=== PATIENT | male | born 1950 | race Caucasian/White ===

== ENCOUNTER → 2016-12-02 | Outpatient (CLI) | payer OTHER ==
--- NOTE | 2016-12-02 15:40 | RAD ---
APPROVED REPORT Test Type: Exercise Stress Nurse/Tech: CIERRA Cortez Test Indications: chest pain Cardiac History: See EMAR Medications: See EMAR Medical History: See EMAR Resting ECG: SR w/BBB Resting Heart Rate: 72 bpm Resting Blood Pressure: 134/72mmHg Pretest Chest Pain: None Nurse/Tech Notes SR per monitor, S1S2, denies chest or SOA, Lungs CTA Consent: The procedure was explained to the patient in lay terms. Informed consent was witnessed. [place] eout was entered into [employer]. History and Stress Test performed by JORGE A Fontaine, MELLO (R) (N) POST EXERCISE Reason for Termination: Reached target heart rate Target HR: 132 Max HR: 156 bpm 84% of Maximum Predicted HR: 156 bpm Exercise duration: 7:02 min:sec, 3 Stage Exercise capacity: 10METs Max Blood Pressure: 160/84mmHg Blood Pressure response to exercise: Normal blood pressure response during stress. Heart Rate response to exercise: Normal response during exercise Chest Pain: No. Arrhythmia: No. ST Change: No. INTERPRETATION Stress EKG Conclusion: Negative for ischemia. Imaging Protocol IMAGE PROTOCOL: Rest Tc-99m/stress Tc-99m 1 day Rest: Stress: Viability: Radiopharm.Tc99m [id number] Sestamibi Dose12.6mCi 33mCi Duration 15min. 10min. Img Date 12/02/2016 12/02/2016 Inj-Img [id number]. 60min. Rest Admin Site:IV - Left AntecubitalAdministrator:SAMY Odell Stress Admin Site: IV - Left AntecubitalAdministrator: JORGE A Fontaine, ARRT (R)(N) STRESS DATA End Diast. Vol.113.0mlAv. Heart Rate85.0bpm End Syst. Vol.39.0mlCO Index BSA0.0L/min Myocardial Nwnu880.0gEject. Rqyswspl96.0% Stress Rates Pk. Fill Rate3.56EDV/secLVtime Pk. Fill 154.13msec Pk. Empty Rate4.05ESV/secLVtime Pk. Volgh373.21msec 08/17 Pk. Fill1.60EDV/sec Stress Scores Regional WT0.00Summed WT1.00 Regional WM0.00Summed WM1.00 The rest and stress images show normal perfusion, normal contraction and thickening. LV Perf. Quant 17 Seg. SSS2.00 17 Seg. SRS2.00 17 Seg. SDS0.00 Stress Defect Extent (% LAD)0.00Rest Defect Extent (% LAD)0.00Rev. Defect Extent (% LAD)0.00 Stress Defect Extent (% LCX) 3.80Rest Defect Extent (% LCX)17.50Rev. Defect Extent (% LCX)0.00 Stress Defect Extent (% RCA)0.00Rest Defect Extent (% RCA)0.00Rev. Defect Extent (% RCA)0.00 Stress Defect Extent (% JULIO)1.10Rest Defect Extent (% JULIO)5.70Rev. Defect Extent (% JULIO)0.00 Other Information Quality:Good Risk Assessment: Low Risk Conclusion 1. No evidence of stress induced EKG changes. 2. Normal myocardial perfusion at stress/rest. 3. Low risk study. EF > 65%
== END | disposition home or self-care (01) ==
LOC: NM 08:26
PROVIDERS: ATTEND Internal Medicine Cardiovascular Disease
DX: R07.9 Chest pain, unspecified (principal); F17.200 Nicotine dependence, unspecified, uncomplicated; Z79.01 Long term (current) use of anticoagulants
CPT/HCPCS: 78452; 93017; 96374; 96376; A9500

== ENCOUNTER 2021-06-13 14:07 | Inpatient (IN) | payer MEDICARE ==
[~2021-06-13] VITALS: Ht 170.2 cm; Wt 73.8 kg
--- NOTE | 2021-06-13 15:16 | PHYS DOC ---
General Adult EDM: Chief Complaint: SHORTNESS OF BREATH HPI: HPI: 70-year-old male past medical history of hypertension, GERD and former tobacco use, presents the ED with complaints of " [facility] come [facility] if my oxygen dropped below 90," reports he was 83 and 87% on room air earlier today. Patient states "I thought I had a cold," 8 days ago when he [facility] at [facility]. Has been experiencing anorexia, diarrhea, fever or chills, nasal congestion and sore throat. Was not vaccinated for Covid. No prior history of Covid infection. Does not feel short of breath. Review of Systems: Review of Systems: Constitutional: Denies lethargy or confusion Eyes: Denies change in visual acuity. [] HENT: Denies rhinorrhea or nasal flarring Respiratory: Denies cough or hemoptysis Cardiovascular: Denies chest pain or edema. [] GI: Denies abdominal pain, nausea, vomiting, bloody stools : Denies dysuria or incontinence Musculoskeletal: Denies back pain or joint pain or leg swelling Integument: Denies rash or diaphoresis Neurologic: Denies headache, focal weakness or sensory changes. [] Endocrine: Denies polyuria or polydipsia. [] Lymphatic: Denies swollen glands. [] Psychiatric: Denies depression or anxiety. [] Heart Score: C/O Chest Pain: No Risk Factors: Risk Factors: DM, Current or recent (<one month) smoker, HTN, HLP, family history of CAD, obesity. Risk Scores: Score 0 - 3: 2.5% MACE over next 6 weeks - Discharge Home Score 4 - 6: 20.3% MACE over next 6 weeks - Admit for Clinical Observation Score 7 - 10: 72.7% MACE over next 6 weeks - Early Invasive Strategies Current Medications: Current Medications Medications (Trade) Dose Ordered Sig/Andriy Start Time Stop Time Status Last Admin Dose Admin Sodium Chloride 1,000 ml @ 1,000 mls/hr 1X ONCE 06/13/21 15:00 06/13/21 15:59 UNV Allergies: Allergies: Allergies Coded Allergies Type Severity Reaction Last Updated Verified No Known Drug Allergies 06/13/21 No Physical Exam: PE: Constitutional: Well developed, well nourished, no acute distress, non-toxic appearance. HENT: Normocephalic, atraumatic, Eyes: EOMI, conjunctiva normal, no discharge. Neck: Normal range of motion, supple, Cardiovascular: S1/2 present, regular rhythm Lungs & Thorax: Speaking in full sentences, bilateral equal chest rise, no tachypnea or increased work of breathing, 93% on 5 L nasal cannula Abdomen: soft, no tenderness, Skin: Warm, dry, no erythema, no rash. [] Extremities: No tenderness, no cyanosis, no lower extremity edema Neurologic: Alert and oriented X 3, normal motor function, normal sensory function, no focal deficits noted. [] Psychologic: Affect normal, judgement normal, mood normal. [] EKG: EKG: Sinus rhythm 90 bpm, left axis deviation, QTC 472, PVCs present, no ST elevation or ST depression, no active chest pain Radiology/Procedures: Radiology/Procedures: IMAGING REPORT Signed PATIENT: GINO PATEL PACCOUNT: [id number] : 1950 LOCATION: ER AGE: 70 SEX: M EXAM STATUS: REG ER ORD. PHYSICIAN: ROBERT FREEMAN DO REASON: soa, covid+, r/o pe PROCEDURE: CT ANGIOGRAPHY CHEST CTA chest with contrast dated 06/13/2021. No comparison available. CLINICAL INDICATION: Shortness of breath. Covid 19. TECHNIQUE: Contiguous axial imaging of the chest was performed following the intravenous administration of 80 cc Omnipaque 350. Study was performed as dedicated PE protocol with thin cut coronal MIPS 3-D reconstruction. One or more of the following individualized dose reduction techniques were utilized for this examination: 1. Automated exposure control 2. Adjustment of the mA and/or kV according to patient size 3. Use of iterative reconstruction technique. FINDINGS: Contrast bolus is adequate. No evidence of central, lobar or segmental pulmonary embolus. Subsegmental branches are not well evaluated based on technique. Heart size is upper limits of normal. No pericardial effusion. Coronary artery calcifications. Borderline enlarged left paratracheal, right paratracheal and subcarinal lymph nodes measuring up to 8 mm short axis. No apparent axillary or supraclavicular lymphadenopathy. The thyroid gland is unremarkable. Central airways are patent. There is patchy groundglass opacity throughout both lungs. No consolidation or pleural effusion. No pneumothorax. Superimposed mild to moderate emphysema. Images of the upper abdomen are unremarkable. Calcified stones at the gallbladder neck. No significant bony abnormality. Bone window show no acute findings. Multilevel spondylosis. Mild narrowing of the celiac artery at its origin. IMPRESSION: 1. No evidence of central, lobar or segmental pulmonary embolus. 2. Patchy groundglass opacity throughout both lungs, nonspecific. This could be related to Covid 19 pneumonitis. 3. Mild mediastinal lymphadenopathy, nonspecific. 4. Coronary artery calcifications. 5. Cholelithiasis. Electronically signed by: Mark Hull MD (06/13/2021 4:25 PM) [id number] DICTATED and SIGNED BY: MARK HULL MD DATE: 06/13/21 [id number] 0 Course & Med Decision Making: Course & Med Decision Making Pertinent Labs and Imaging studies reviewed. (See chart for details) Concern for COVID-19 infection of 8 days with hypoxia requiring nasal cannula, renal insufficiency (no prior for baseline comparison) and bandemia. CTA of the chest shows no pulmonary embolus. Will admit for further medical management. Patient stable time of admission agrees with this plan. I have spoken with the patient and/or caregivers. I have explained the patient's condition, diagnosis and treatment plan based on the information available to me at this time. I have answered the patient's and/or caregivers questions and answered any concerns. The patient and/or caregivers have as good an understanding of the patient's diagnosis, condition and treatment plan as can be expected at this point. The patient has been stabilized within the capability of the emergency department. The patient will be transported for further care and management or will be moved to an observation or inpatient service. I have communicated with the staff or medical practitioner taking over this patient's care. Odilon Disclaimer: Odilon Disclaimer: This electronic medical record was generated, in whole or in part, using a voice recognition dictation system. Departure Departure Impression: Primary Impression: COVID-19 Additional Impressions: Sepsis Hypoxemia requiring supplemental oxygen Bandemia Renal insufficiency Disposition: ADMITTED INPATIENT Admitting Physician: CLAUDIA (Dr. Ferrara) Condition: STABLE Referrals: SULEIMAN CRENSHAW MD (PCP) ROBERT FREEMAN DO Jun 13, 2021 15:16
[2021-06-13] MEDS ORDERED: IV NORMAL SALINE 1000ML BAG 1,000 ML IV ONE (15:30)
[2021-06-13 15:37] LABS: BASO % 0 % (0-3); EOS % 0 % (0-3); HEMATOCRIT 39.9 % (39.0-53.0); HEMOGLOBIN 13.6 g/dL (13.0-17.5); LYMPH # 0.6 x10^3/uL (1.0-4.8); LYMPH % 4 % (24-48); MEAN CORPUSCULAR HEMOGLOBIN 32 pg (25-35); MEAN CORPUSCULAR HGB CONC 34 g/dL (31-37); MEAN CORPUSCULAR VOLUME 94 fL (79-100); MONO # 0.6 x10^3/uL (0.0-1.1); MONO % 4 % (0-9); NEUT # 13.1 x10^3/uL (1.8-7.7); NEUT % 92 % (31-73); PLATELET COUNT 295 x10^3/uL (140-400); RED BLOOD COUNT 4.22 x10^6/uL (4.30-5.70); RED CELL DISTRIBUTION WIDTH 12.3 % (11.5-14.5); WHITE BLOOD COUNT 14.3 x10^3/uL (4.0-11.0)
[2021-06-13 15:51] LABS: CALCIUM 8.3 mg/dL (8.5-10.1); CREATININE 1.4 mg/dL (0.7-1.3); GFR 50.4; POTASSIUM 3.9 mmol/L (3.5-5.1)
[2021-06-13 15:58] LABS: ALBUMIN 3.2 g/dL (3.4-5.0); DIRECT BILIRUBIN 0.2 mg/dL (0.0-0.2); TOTAL BILIRUBIN 0.4 mg/dL (0.2-1.0); TOTAL PROTEIN 6.9 g/dL (6.4-8.2)
[2021-06-13 15:59] LABS: % BANDS 10 % (0-9); % LYMPHS 4 % (24-48); % MONOS 3 % (0-10); % SEGS 83 % (35-66); PLT ESTIMATE ADEQUATE (ADEQUATE); POIKILOCYTOSIS SLIGHT
[2021-06-13 16:00] LABS: OVALOCYTES FEW
[2021-06-13] MEDS ORDERED: IOHEXOL 350 MG/ML 100 ML VIAL. IV ONE (16:00)
[2021-06-13] MEDS ORDERED: CONTRAST GIVEN. MC PRN (16:00)
--- NOTE | 2021-06-13 16:27 | RAD ---
CTA chest with contrast dated 06/13/2021. No comparison available. CLINICAL INDICATION: Shortness of breath. Covid 19. TECHNIQUE: Contiguous axial imaging of the chest was performed following the intravenous administration of 80 cc Omnipaque 350. Study was performed as dedicated PE protocol with thin cut coronal MIPS 3-D reconstru ction. One or more of the following individualized dose reduction techniques were utilized for this examinat ion: 1. Automated exposure control 2. Adjustment of the mA and/or kV according to patient size 3. Use of iterative reconstruction technique. FINDINGS: Contrast bolus is adequate. No evidence of central, lobar or segmental pulmonary embolus. Subsegmenta l branches are not well evaluated based on technique. Heart size is upper limits of normal. No pericardial effusion. Coronary artery calcifications. Border line enlarged left paratracheal, right paratracheal and subcarinal lymph nodes measuring up to 8 mm s hort axis. No apparent axillary or supraclavicular lymphadenopathy. The thyroid gland is unremarkable . Central airways are patent. There is patchy groundglass opacity throughout both lungs. No consolidati on or pleural effusion. No pneumothorax. Superimposed mild to moderate emphysema. Images of the upper abdomen are unremarkable. Calcified stones at the gallbladder neck. No significan t bony abnormality. Bone window show no acute findings. Multilevel spondylosis. Mild narrowing of the celiac artery at it s origin. IMPRESSION: 1. No evidence of central, lobar or segmental pulmonary embolus. 2. Patchy groundglass opacity throughout both lungs, nonspecific. This could be related to Covid 19 p neumonitis. 3. Mild mediastinal lymphadenopathy, nonspecific. 4. Coronary artery calcifications. 5. Cholelithiasis. Electronically signed by: Mark Hull MD (06/13/2021 4:25 PM) [id number]
[2021-06-13] MEDS ORDERED: MAGNESIUM HYDROXIDE 2,400 MG/30 ML ORAL.SUSP. PO PRN (17:00)
[2021-06-13] MEDS ORDERED: MAG HYDROX/ALUMINUM HYD/SIMETH 30 ML ORAL.SUSP PO PRN (17:00)
[2021-06-13] MEDS ORDERED: BENZOCAINE/MENTHOL LOZENGE. PO PRN (17:00)
[2021-06-13] MEDS ORDERED: HYDROcodone/APAP 5/325MG 1 TAB TABLET PO PRN (17:00)
[2021-06-13] MEDS ORDERED: ONDANSETRON PF 4 MG/2 ML VIAL. IVP PRN (17:00)
[2021-06-13] MEDS ORDERED: ZOLPIDEM 5 MG TABLET. PO PRN (17:00)
[2021-06-13] MEDS ORDERED: LOPERAMIDE 2 MG CAPSULE PO PRN (17:00)
[2021-06-13] MEDS ORDERED: CALCIUM CARBONATE 500 MG TAB.CHEW PO PRN (17:00)
[2021-06-13] MEDS ORDERED: ACETAMINOPHEN 325 MG TABLET. PO PRN (17:00)
[2021-06-13 17:11] LABS: BASE EXCESS ABG 2 mmol/L (-3-3); HCO3 ABG 24 mmol/L (21-28); PCO2 ABG 31 mmHg (35-46); PO2 ABG 70 mmHg (65-108); SAT O2 ABG 95 % (92-99)
[2021-06-13 17:12] LABS: FIO2 ABG 36/4L
[2021-06-13] MEDS ORDERED: hydrALAZINE 20 MG/ML VIAL. IVP PRN (17:30)
[2021-06-13] MEDS ORDERED: ALBUTEROL SULFATE 8GM INHALER. INH PRN (17:30)
[2021-06-13 17:36] LABS: INFLUENZA A PATIENT NEGATIVE (NEGATIVE); INFLUENZA B PATIENT NEGATIVE (NEGATIVE)
[2021-06-13] MEDS ORDERED: cefTRIAXone IV Push 1 GM VIAL. IVP SCH (18:00)
[2021-06-13] MEDS ORDERED: REMDESIVIR LOAD in IV NORMAL SALINE 250ML TV IV ONE (19:00)
[2021-06-13] MEDS ORDERED: DEXAMETHASONE SOD PHOS 4 MG/ML VIAL IVP ONE (20:00)
--- NOTE | 2021-06-13 20:03 | PDOC1 ---
History and Physical Date of Admission Date of Admission DATE: 06/13/21 TIME: 19:51 Identification/Chief Complaint Chief Complaint Shortness of breath Source Source: Patient History of Present Illness History of Present Illness Patient is a 64-year-old man with past medical history HTN, HLD, GERD, who presents to the ER with complaints of shortness of breath since yesterday. He reports "cold-like symptoms "over the past 8 days. He went to an urgent care yesterday and was diagnosed with COVID-19. He was sent home with a a home oxygen monitor and was told to come back to the ED if his O2 saturation dropped below 90. At home his oxygen saturations were reading in the 80s, so he came to the ER for further evaluation. Labs on admission showed WBC 14.3, sodium 129, BUN 31, creatinine 1.5, CBG 164, AST 45, ALT 47. CTA chest showed no evidence of pulmonary embolus, but patchy groundglass opacities throughout both lungs consistent with COVID-19 pneumonitis, mild mediastinal lymphadenopathy, and coronary artery calcifications. He has not been vaccinated against COVID-19. He was given IV fluids, Rocephin, and doxycycline in the ED. Will admit patient for further medical management. Past Medical History Past Medical History HLD, HTN, GERD, CAD Past Surgical History Past Surgical History Reviewed with patient but denies surgical history Family History Family History Reviewed with patient but denies significant family history Social History Smoke: Quit ALCOHOL: none Drugs: None Current Problem List Problem List Problems Medical Problems: (1) Bandemia Status: Acute (2) COVID-19 Status: Acute (3) Hypoxemia requiring supplemental oxygen Status: Acute (4) Renal insufficiency Status: Acute (5) Sepsis Status: Acute Current Medications Current Medications Current Medications Sodium Chloride 1,000 ml @ 1,000 mls/hr 1X ONCE IV Last administered on 06/13/21at 15:00; Start 06/13/21 at 15:30; Stop 06/13/21 at 16:29; Status DC Iohexol (Omnipaque 350 Mg/ml) 100 ml 1X ONCE IV Last administered on 1at 16:19; Start 06/13/21 at 16:00; Stop 06/13/21 at 16:01; Status DC Info (CONTRAST GIVEN -- Rx MONITORING) 1 each PRN DAILY PRN MC SEE COMMENTS; Start 06/13/21 at 16:00; Stop 06/15/21 at 15:59 Ondansetron HCl (Zofran) 4 mg PRN Q6HRS PRN IVP NAUSEA/VOMITING; Start 06/13/21 at 17:00 Al Hydroxide/Mg Hydroxide (Mylanta Plus Xs) 30 ml PRN Q3HRS PRN PO HEARTBURN / GAS; Start 06/13/21 at 17:00 Calcium Carbonate/ Glycine (Tums) 500 mg PRN Q3HRS PRN PO UPSET STOMACH; Start 06/13/21 at 17:00 Zolpidem Tartrate (Ambien) 5 mg PRN QHS PRN PO INSOMNIA, MAY REPEAT IN 1HR; Start 06/13/21 at 17:00 Acetaminophen/ Hydrocodone Bitart (Lortab 5/325) 1 tab PRN Q4HRS PRN PO PAIN; Start 06/13/21 at 17:00 Acetaminophen (Tylenol) 650 mg PRN Q6HRS PRN PO Headaches, Temp > 101.5F; Start 06/13/21 at 17:00 Magnesium Hydroxide (Milk Of Magnesia) 2,400 mg PRN Q12HR PRN PO CONSTIPATION; Start 06/13/21 at 17:00 Enoxaparin Sodium (Lovenox 40mg Syringe) 40 mg Q24H SQ ; Start 06/13/21 at 21:00 Loperamide HCl (Imodium) 2 mg PRN Q15MIN PRN PO DIARRHEA; Start 06/13/21 at 17:00 Tizanidine HCl (Zanaflex) 4 mg PRN Q8HRS PRN PO MUSCLE SPASMS; Start 06/13/21 at 17:00 Benzonatate (Tessalon Perle) 100 mg PRN Q8HRS PRN PO COUGH; Start 06/13/21 at 17:00 Ascorbic Acid (Vitamin C) 500 mg BID PO ; Start 06/13/21 at 21:00; Stop 06/27/21 at 20:59 Zinc Sulfate (Orazinc) 440 mg DAILY PO ; Start 06/13/21 at 18:00; Stop 06/28/21 at 17:59 Throat Lozenges (Cepacol Sore Throat Lozenge) 1 iwona PRN Q2HRS PRN PO SORE THROAT; Start 06/13/21 at 17:00 Doxycycline Hyclate (Vibra-Tab) 100 mg BID PO ; Start 06/13/21 at 21:00; Stop 06/13/21 at 17:27; Status DC Ceftriaxone Sodium (Rocephin) 1 gm DAILY IVP ; Start 06/13/21 at 18:00; Stop 06/13/21 at 17:27; Status DC Albuterol Sulfate (Ventolin Hfa) 2 puff PRN Q4HRS PRN INH SHORTNESS OF BREATH; Start 06/13/21 at 17:30 Remdesivir 200 mg/ Sodium Chloride 210 ml @ 210 mls/hr 1X ONCE IV ; Start 06/13/21 at 19:00; Stop 06/13/21 at 19:59 Remdesivir 100 mg/ Sodium Chloride 230 ml @ 460 mls/hr Q24H IV ; Start 06/14/21 at 19:00; Stop 06/17/21 at 19:29 Hydralazine HCl (Apresoline Inj) 10 mg PRN Q4HRS PRN IVP HYPERTENSION; Start 06/13/21 at 17:30 Ceftriaxone Sodium (Rocephin) 1 gm DAILY IVP ; Start 06/14/21 at 09:00; Stop 06/19/21 at 08:59 Doxycycline Hyclate (Vibra-Tab) 100 mg BID PO ; Start 06/14/21 at 09:00; Stop 06/19/21 at 08:59 Famotidine (Pepcid) 20 mg PRN BID PRN PO HEARTBURN / GAS; Start 06/13/21 at 17:30 Allergies Allergies: Coded Allergies: No Known Drug Allergies (Unverified , 06/13/21) ROS Review of System GENERAL: Body aches. no history of weight change, weakness or fevers. SKIN: No bruising, hair changes or rashes. EYES: No blurred, double or loss of vision. NOSE AND THROAT: Sore throat. No history of nosebleeds. HEART: Denies chest pain, denies palpitations. LUNGS: Shortness of breath. Denies cough, hemoptysis, or wheezing. GASTROINTESTINAL: Diarrhea. Denies nausea, vomiting, abdominal pain. GENITOURINARY: Denies dysuria, frequency, urgency, hematuria. NEUROLOGIC: Denies history of numbness, tingling, tremor or weakness. PSYCHIATRIC: Denies anxiety, denies depression. ENDOCRINE: No history of heat or cold intolerance, polyuria or polydipsia. EXTREMITIES: Denies muscle weakness, joint pain, pain on walking or stiffness. Physical Exam Physical Exam General: Alert, Oriented X3, Cooperative, mild distress HEENT: PERRLA, EOMI Lungs: Decreased breath sounds bilaterally, Normal air movement Heart: RRR, no murmurs Cardiovascular: S1, S2 Abdomen: Normal bowel sounds, Soft, No tenderness Extremities: No clubbing, No cyanosis Skin: No rashes, No significant lesion Neuro: Normal speech, Normal tone, Sensation intact Psych/Mental Status: Mental status NL, Mood NL Vitals Vitals Vital Signs Date Time Temp Pulse Resp B/P (MAP) Pulse Ox O2 Delivery O2 Flow Rate FiO2 06/13/21 16:51 86 154/72 (99) 94 Nasal Cannula 3.0 06/13/21 14:51 98.7 16 98.7 Labs Labs Laboratory Tests Test 06/13/21 15:28 06/13/21 17:00 06/13/21 17:01 White Blood Count 14.3 x10^3/uL (4.0-11.0) Red Blood Count 4.22 x10^6/uL (4.30-5.70) Hemoglobin 13.6 g/dL (13.0-17.5) Hematocrit 39.9 % (39.0-53.0) Mean Corpuscular Volume 94 fL (79-100) Mean Corpuscular Hemoglobin 32 pg (25-35) Mean Corpuscular Hemoglobin Concent 34 g/dL (31-37) Red Cell Distribution Width 12.3 % (11.5-14.5) Platelet Count 295 x10^3/uL (140-400) Neutrophils (%) (Auto) 92 % (31-73) Lymphocytes (%) (Auto) 4 % (24-48) Monocytes (%) (Auto) 4 % (0-9) Eosinophils (%) (Auto) 0 % (0-3) Basophils (%) (Auto) 0 % (0-3) Neutrophils # (Auto) 13.1 x10^3/uL (1.8-7.7) Lymphocytes # (Auto) 0.6 x10^3/uL (1.0-4.8) Monocytes # (Auto) 0.6 x10^3/uL (0.0-1.1) Eosinophils # (Auto) 0.0 x10^3/uL (0.0-0.7) Basophils # (Auto) 0.0 x10^3/uL (0.0-0.2) Segmented Neutrophils % 83 % (35-66) Band Neutrophils % 10 % (0-9) Lymphocytes % 4 % (24-48) Monocytes % 3 % (0-10) Platelet Estimate Adequate (ADEQUATE) Poikilocytosis Slight Ovalocytes Few Sodium Level 129 mmol/L (136-145) Potassium Level 3.9 mmol/L (3.5-5.1) Chloride Level 93 mmol/L (98-107) Carbon Dioxide Level 27 mmol/L (21-32) Anion Gap 9 (6-14) Blood Urea Nitrogen 31 mg/dL (8-26) Creatinine 1.4 mg/dL (0.7-1.3) Estimated GFR (Cockcroft-Gault) 50.4 Glucose Level 164 mg/dL (70-99) Calcium Level 8.3 mg/dL (8.5-10.1) Total Bilirubin 0.4 mg/dL (0.2-1.0) Direct Bilirubin 0.2 mg/dL (0.0-0.2) Aspartate Amino Transf (AST/SGOT) 45 U/L (15-37) Alanine Aminotransferase (ALT/SGPT) 47 U/L (16-63) Alkaline Phosphatase 51 U/L (46-116) Creatine Kinase 126 U/L (39-308) Troponin I High Sensitivity 14 ng/L (4-75) EV-Jta-B-Type Natriuretic Peptide 712 pg/mL (0-124) Total Protein 6.9 g/dL (6.4-8.2) Albumin 3.2 g/dL (3.4-5.0) Influenza Type A Antigen Negative (NEGATIVE) Influenza Type B Antigen Negative (NEGATIVE) SARS-CoV-2 Antigen (Rapid) Positive (NEGATIVE) O2 Saturation 95 % (92-99) Arterial Blood pH 7.50 (7.35-7.45) Arterial Blood pCO2 at Patient Temp 31 mmHg (35-46) Arterial Blood pO2 at Patient Temp 70 mmHg (65-108) Arterial Blood HCO3 24 mmol/L (21-28) Arterial Blood Base Excess 2 mmol/L (-3-3) FiO2 36/4l Laboratory Tests Test 06/13/21 15:28 06/13/21 17:00 06/13/21 17:01 White Blood Count 14.3 x10^3/uL (4.0-11.0) Red Blood Count 4.22 x10^6/uL (4.30-5.70) Hemoglobin 13.6 g/dL (13.0-17.5) Hematocrit 39.9 % (39.0-53.0) Mean Corpuscular Volume 94 fL (79-100) Mean Corpuscular Hemoglobin 32 pg (25-35) Mean Corpuscular Hemoglobin Concent 34 g/dL (31-37) Red Cell Distribution Width 12.3 % (11.5-14.5) Platelet Count 295 x10^3/uL (140-400) Neutrophils (%) (Auto) 92 % (31-73) Lymphocytes (%) (Auto) 4 % (24-48) Monocytes (%) (Auto) 4 % (0-9) Eosinophils (%) (Auto) 0 % (0-3) Basophils (%) (Auto) 0 % (0-3) Neutrophils # (Auto) 13.1 x10^3/uL (1.8-7.7) Lymphocytes # (Auto) 0.6 x10^3/uL (1.0-4.8) Monocytes # (Auto) 0.6 x10^3/uL (0.0-1.1) Eosinophils # (Auto) 0.0 x10^3/uL (0.0-0.7) Basophils # (Auto) 0.0 x10^3/uL (0.0-0.2) Segmented Neutrophils % 83 % (35-66) Band Neutrophils % 10 % (0-9) Lymphocytes % 4 % (24-48) Monocytes % 3 % (0-10) Platelet Estimate Adequate (ADEQUATE) Poikilocytosis Slight Ovalocytes Few Sodium Level 129 mmol/L (136-145) Potassium Level 3.9 mmol/L (3.5-5.1) Chloride Level 93 mmol/L (98-107) Carbon Dioxide Level 27 mmol/L (21-32) Anion Gap 9 (6-14) Blood Urea Nitrogen 31 mg/dL (8-26) Creatinine 1.4 mg/dL (0.7-1.3) Estimated GFR (Cockcroft-Gault) 50.4 Glucose Level 164 mg/dL (70-99) Calcium Level 8.3 mg/dL (8.5-10.1) Total Bilirubin 0.4 mg/dL (0.2-1.0) Direct Bilirubin 0.2 mg/dL (0.0-0.2) Aspartate Amino Transf (AST/SGOT) 45 U/L (15-37) Alanine Aminotransferase (ALT/SGPT) 47 U/L (16-63) Alkaline Phosphatase 51 U/L (46-116) Creatine Kinase 126 U/L (39-308) Troponin I High Sensitivity 14 ng/L (4-75) GM-Qcw-C-Type Natriuretic Peptide 712 pg/mL (0-124) Total Protein 6.9 g/dL (6.4-8.2) Albumin 3.2 g/dL (3.4-5.0) Influenza Type A Antigen Negative (NEGATIVE) Influenza Type B Antigen Negative (NEGATIVE) SARS-CoV-2 Antigen (Rapid) Positive (NEGATIVE) O2 Saturation 95 % (92-99) Arterial Blood pH 7.50 (7.35-7.45) Arterial Blood pCO2 at Patient Temp 31 mmHg (35-46) Arterial Blood pO2 at Patient Temp 70 mmHg (65-108) Arterial Blood HCO3 24 mmol/L (21-28) Arterial Blood Base Excess 2 mmol/L (-3-3) FiO2 36/4l Images Images [facility] [address] [place], [place] [id number] IMAGING REPORT Signed PATIENT: GINO PATEL PACCOUNT: [id number] : 1950 LOCATION: ER AGE: 70 SEX: M EXAM STATUS: REG ER ORD. PHYSICIAN: ROBERT FREEMAN DO REASON: soa, covid+, r/o pe PROCEDURE: CT ANGIOGRAPHY CHEST CTA chest with contrast dated 06/13/2021. No comparison available. CLINICAL INDICATION: Shortness of breath. Covid 19. TECHNIQUE: Contiguous axial imaging of the chest was performed following the intravenous administration of 80 cc Omnipaque 350. Study was performed as dedicated PE protocol with thin cut coronal MIPS 3-D reconstruction. One or more of the following individualized dose reduction techniques were utilized for this examination: 1. Automated exposure control 2. Adjustment of the mA and/or kV according to patient size 3. Use of iterative reconstruction technique. FINDINGS: Contrast bolus is adequate. No evidence of central, lobar or segmental pulmonary embolus. Subsegmental branches are not well evaluated based on technique. Heart size is upper limits of normal. No pericardial effusion. Coronary artery calcifications. Borderline enlarged left paratracheal, right paratracheal and subcarinal lymph nodes measuring up to 8 mm short axis. No apparent axillary or supraclavicular lymphadenopathy. The thyroid gland is unremarkable. Central airways are patent. There is patchy groundglass opacity throughout both lungs. No consolidation or pleural effusion. No pneumothorax. Superimposed mild to moderate emphysema. Images of the upper abdomen are unremarkable. Calcified stones at the gallbladder neck. No significant bony abnormality. Bone window show no acute findings. Multilevel spondylosis. Mild narrowing of the celiac artery at its origin. IMPRESSION: 1. No evidence of central, lobar or segmental pulmonary embolus. 2. Patchy groundglass opacity throughout both lungs, nonspecific. This could be related to Covid 19 pneumonitis. 3. Mild mediastinal lymphadenopathy, nonspecific. 4. Coronary artery calcifications. 5. Cholelithiasis. VTE Prophylaxis Ordered VTE Prophylaxis Devices: No VTE Pharmacological Prophylaxi: Yes Assessment/Plan Assessment/Plan Acute respiratory failure with hypoxia COVID-19 pneumonia Hyponatremia SHADY Hypercalcemia HTN HLD GERD Plan: We will admit patient and provide Decadron 6 mg daily and remdesivir Prophylactic antibiotics Oxygen and supportive care IV fluids Will obtain CRP, ferritin, LDH Will consult pulmonology if patient starts to require higher level of oxygen or is a candidate for Actemra Hemoglobin A1c pending Resume home medications FEN - Cardiac diet PPX - Heparin FULL CODE Dispo - inpatient for above Patient names his girlfriend (Ashlyn Allen) as surrogate decision-maker Justifications for Admission General Conditions Other justification for admit: Respiratory failure with hypoxia, COVID-19 Other Justification DELL KNAPP MD Jun 13, 2021 20:03
[2021-06-13] MEDS: ENOXAPARIN 40 MG/0.4 ML SYRINGE. SQ SCH (20:43)
[2021-06-13] MEDS: ZINC SULFATE 220 MG CAPSULE. PO SCH (20:44)
[2021-06-13] MEDS: BENZONATATE 100 MG CAPSULE. PO PRN (20:44)
[2021-06-13] MEDS: ASCORBIC ACID 500 MG TABLET PO SCH (20:44)
[2021-06-13] MEDS ORDERED: DOXYCYCLINE HYCLATE 100 MG TABLET PO SCH (21:00)
[2021-06-13 23:06] VITALS: BP 127/64
[2021-06-14 03:36] VITALS: BP 124/69
--- NOTE | 2021-06-14 05:26 | EKG ---
[facility] [address] [place] [address] Test Date: 2021-06-13 Test Time: 15:17:34 Pat Name: GINO PATEL Department: Room: 562 1 Gender: M Psychiatric Technician: : 1950 Requested By: ROBERT FREEMAN Order Number: [id number] Reading MD: Adán Villarreal Measurements Intervals [place] Rate: 90 P: 60 HI: 136 QRS: -8 QRSD: 92 T: 59 QT: 382 QTc: 472 Interpretive Statements SINUS RHYTHM VENTRICULAR PREMATURE COMPLEX(ES) LEFTWARD AXIS ABNORMAL ECG RI6.02 No previous ECG available for comparison Electronically Signed On 06-14-2021 13:06:21 CDT by Adán Villarreal
[2021-06-14 07:00] VITALS: BP 126/70
[2021-06-14] MEDS: DOXYCYCLINE HYCLATE 100 MG TABLET PO SCH ×2 (08:39→20:27)
[2021-06-14] MEDS: DEXAMETHASONE SOD PHOS 4 MG/ML VIAL IVP SCH (08:39)
[2021-06-14] MEDS: ASCORBIC ACID 500 MG TABLET PO SCH ×2 (08:39→20:27)
[2021-06-14] MEDS: ZINC SULFATE 220 MG CAPSULE. PO SCH (08:39)
[2021-06-14] MEDS: cefTRIAXone IV Push 1 GM VIAL. IVP SCH (10:11)
[2021-06-14 11:00] VITALS: BP 115/33
--- NOTE | 2021-06-14 15:38 | PDOC ---
[employer] PROGRESS NOTE Date of Service DOS: DATE: 06/14/21 TIME: 15:37 Chief Complaint Chief Complaint Acute respiratory failure with hypoxia, Acute lung injury with bilateral infiltrates COVID-19 pneumonia sepsis, POA Hyponatremia, acute illness, dry SHADY, acute vasomotor nephropathy Hypercalcemia HTN HLD GERD History of Present Illness History of Present Illness Plan: We will admit patient and provide Decadron 6 mg daily and remdesivir Prophylactic antibiotics Oxygen and supportive care IV fluids Will obtain CRP, ferritin, LDH Will consult pulmonology if patient starts to require higher level of oxygen or is a candidate for Actemra Hemoglobin A1c pending Resume home medications FEN - Cardiac diet PPX - Heparin FULL CODE Dispo - inpatient for above Patient names his girlfriend (Ashlyn Allen) as surrogate decision-maker Vitals/I&O Vitals/I&O: Vital Signs Date Time Temp Pulse Resp B/P (MAP) Pulse Ox O2 Delivery O2 Flow Rate FiO2 06/14/21 14:09 92 Nasal Cannula 4.0 06/14/21 11:00 98.1 87 20 115/33 (60) 98.1 I & O 06/13/21 06/13/21 06/14/21 15:00 23:00 07:00 Intake Total 300 ml Output Total 750 ml 200 ml Balance -450 ml -200 ml Physical Exam General: Alert, Oriented X3, Cooperative, mild distress Heart: Normal S1 Lungs: Other (rales, no wheeze, no cough) Abdomen: Normal bowel sounds Extremities: No clubbing, No edema Skin: No breakdown Labs Labs: Laboratory Tests Test 06/13/21 17:00 06/13/21 17:01 Influenza Type A Antigen Negative (NEGATIVE) Influenza Type B Antigen Negative (NEGATIVE) SARS-CoV-2 Antigen (Rapid) Positive (NEGATIVE) O2 Saturation 95 % (92-99) Arterial Blood pH 7.50 (7.35-7.45) Arterial Blood pCO2 at Patient Temp 31 mmHg (35-46) Arterial Blood pO2 at Patient Temp 70 mmHg (65-108) Arterial Blood HCO3 24 mmol/L (21-28) Arterial Blood Base Excess 2 mmol/L (-3-3) FiO2 36/4l Assessment and Plan Assessmemt and Plan Problems Medical Problems: (1) Bandemia Status: Acute (2) COVID-19 Status: Acute (3) Hypoxemia requiring supplemental oxygen Status: Acute (4) Renal insufficiency Status: Acute (5) Sepsis Status: Acute Comment Review of Relevant I have reviewed the following items alessia (where applicable) has been applied. Medications: Current Medications Medications (Trade) Dose Ordered Sig/Andriy Route PRN Reason Start Time Stop Time Status Last Admin Dose Admin Iohexol (Omnipaque 350 Mg/ml) 100 ml 1X ONCE IV 06/13/21 16:00 06/13/21 16:01 DC 06/13/21 16:19 Enoxaparin Sodium (Lovenox 40mg Syringe) 40 mg Q24H SQ 06/13/21 21:00 06/13/21 20:43 Benzonatate (Tessalon Perle) 100 mg PRN Q8HRS PRN PO COUGH 06/13/21 17:00 06/13/21 20:44 Ascorbic Acid (Vitamin C) 500 mg BID PO 06/13/21 21:00 06/27/21 20:59 06/14/21 08:39 Zinc Sulfate (Orazinc) 440 mg DAILY PO 06/13/21 18:00 06/28/21 17:59 06/14/21 08:39 Remdesivir 200 mg/ Sodium Chloride 210 ml @ 210 mls/hr 1X ONCE IV 06/13/21 19:00 06/13/21 19:59 DC 06/13/21 20:42 Ceftriaxone Sodium (Rocephin) 1 gm DAILY IVP 06/14/21 09:00 06/19/21 08:59 06/14/21 10:11 Doxycycline Hyclate (Vibra-Tab) 100 mg BID PO 06/14/21 09:00 06/19/21 08:59 06/14/21 08:39 Dexamethasone Sodium Phosphate (Decadron) 6 mg DAILY IVP 06/14/21 09:00 06/14/21 08:39 Dexamethasone Sodium Phosphate (Decadron) 6 mg 1X ONCE IVP 06/13/21 20:00 06/13/21 20:01 DC 06/13/21 20:44 Justifications for Admission General Conditions Other justification for admit: Respiratory failure with hypoxia, COVID-19 Other Justification LUCILA MONTANO MD Jun 14, 2021 15:38
[2021-06-14] MEDS: REMDESIVIR 100mg in NORMAL SALINE 250ML X 4 DAYS IV SCH (18:23)
[2021-06-14 19:00] VITALS: BP 139/75
[2021-06-14] MEDS: ENOXAPARIN 40 MG/0.4 ML SYRINGE. SQ SCH (20:27)
[2021-06-14] MEDS: LACTOBACILLUS RHAMNOSUS GG 1 CAPSULE. PO SCH (20:27)
[2021-06-14 23:05] VITALS: BP 131/79
[2021-06-15 03:00] VITALS: BP 127/71
[2021-06-15 06:34] LABS: BASO % 0 % (0-3); EOS % 0 % (0-3); HEMATOCRIT 43.3 % (39.0-53.0); HEMOGLOBIN 14.2 g/dL (13.0-17.5); LYMPH # 0.6 x10^3/uL (1.0-4.8); LYMPH % 5 % (24-48); MEAN CORPUSCULAR HEMOGLOBIN 32 pg (25-35); MEAN CORPUSCULAR HGB CONC 33 g/dL (31-37); MEAN CORPUSCULAR VOLUME 96 fL (79-100); MONO # 0.6 x10^3/uL (0.0-1.1); MONO % 5 % (0-9); NEUT # 10.3 x10^3/uL (1.8-7.7); NEUT % 90 % (31-73); PLATELET COUNT 348 x10^3/uL (140-400); RED CELL DISTRIBUTION WIDTH 12.6 % (11.5-14.5); WHITE BLOOD COUNT 11.5 x10^3/uL (4.0-11.0)
[2021-06-15 07:00] VITALS: BP 146/80
[2021-06-15 07:12] LABS: ALBUMIN 2.8 g/dL (3.4-5.0); ALBUMIN/GLOBULIN RATIO 0.7 (1.0-1.7); CALCIUM 8.2 mg/dL (8.5-10.1); CREATININE 1.1 mg/dL (0.7-1.3); GFR 66.6; POTASSIUM 4.2 mmol/L (3.5-5.1); TOTAL BILIRUBIN 0.4 mg/dL (0.2-1.0); TOTAL PROTEIN 6.8 g/dL (6.4-8.2)
[2021-06-15] MEDS: ZINC SULFATE 220 MG CAPSULE. PO SCH (08:57)
[2021-06-15] MEDS: DEXAMETHASONE SOD PHOS 4 MG/ML VIAL IVP SCH (08:58)
[2021-06-15] MEDS: DOXYCYCLINE HYCLATE 100 MG TABLET PO SCH ×2 (08:58→20:23)
[2021-06-15] MEDS: LACTOBACILLUS RHAMNOSUS GG 1 CAPSULE. PO SCH ×2 (08:58→20:23)
[2021-06-15] MEDS: ASCORBIC ACID 500 MG TABLET PO SCH ×2 (08:58→20:23)
[2021-06-15 11:00] VITALS: BP 131/69
--- NOTE | 2021-06-15 11:24 | PDOC ---
[employer] PROGRESS NOTE Date of Service DOS: DATE: 06/15/21 TIME: 11:16 Chief Complaint Chief Complaint Acute respiratory failure with hypoxia, Acute lung injury with bilateral infiltrates COVID-19 pneumonia sepsis, POA Hyponatremia, acute illness, dry SHADY, acute vasomotor nephropathy Hypercalcemia HTN HLD GERD History of Present Illness History of Present Illness 06/15/2020 Patient seen and examined Discussed with RN Chart reviewed He is currently on a 100% nonrebreather Vitals/I&O Vitals/I&O: Vital Signs Date Time Temp Pulse Resp B/P (MAP) Pulse Ox O2 Delivery O2 Flow Rate FiO2 06/15/21 07:00 98.0 95 22 146/80 (102) 98 NonRebreather Mask 15.0 98.0 I & O 06/14/21 06/14/21 06/15/21 15:00 23:00 07:00 Intake Total 0 ml Output Total 420 ml 200 ml Balance -420 ml -200 ml 0 ml Physical Exam General: Alert, Oriented X3, Cooperative, mild distress Heart: Normal S1 Lungs: Other (rales, no wheeze, no cough) Abdomen: Normal bowel sounds Extremities: No clubbing, No edema Skin: No breakdown Labs Labs: Laboratory Tests Test 06/15/21 05:40 White Blood Count 11.5 x10^3/uL (4.0-11.0) Red Blood Count 4.50 x10^6/uL (4.30-5.70) Hemoglobin 14.2 g/dL (13.0-17.5) Hematocrit 43.3 % (39.0-53.0) Mean Corpuscular Volume 96 fL (79-100) Mean Corpuscular Hemoglobin 32 pg (25-35) Mean Corpuscular Hemoglobin Concent 33 g/dL (31-37) Red Cell Distribution Width 12.6 % (11.5-14.5) Platelet Count 348 x10^3/uL (140-400) Neutrophils (%) (Auto) 90 % (31-73) Lymphocytes (%) (Auto) 5 % (24-48) Monocytes (%) (Auto) 5 % (0-9) Eosinophils (%) (Auto) 0 % (0-3) Basophils (%) (Auto) 0 % (0-3) Neutrophils # (Auto) 10.3 x10^3/uL (1.8-7.7) Lymphocytes # (Auto) 0.6 x10^3/uL (1.0-4.8) Monocytes # (Auto) 0.6 x10^3/uL (0.0-1.1) Eosinophils # (Auto) 0.0 x10^3/uL (0.0-0.7) Basophils # (Auto) 0.0 x10^3/uL (0.0-0.2) Sodium Level 135 mmol/L (136-145) Potassium Level 4.2 mmol/L (3.5-5.1) Chloride Level 98 mmol/L (98-107) Carbon Dioxide Level 28 mmol/L (21-32) Anion Gap 9 (6-14) Blood Urea Nitrogen 30 mg/dL (8-26) Creatinine 1.1 mg/dL (0.7-1.3) Estimated GFR (Cockcroft-Gault) 66.6 BUN/Creatinine Ratio 27 (6-20) Glucose Level 116 mg/dL (70-99) Calcium Level 8.2 mg/dL (8.5-10.1) Total Bilirubin 0.4 mg/dL (0.2-1.0) Aspartate Amino Transf (AST/SGOT) 36 U/L (15-37) Alanine Aminotransferase (ALT/SGPT) 45 U/L (16-63) Alkaline Phosphatase 51 U/L (46-116) Total Protein 6.8 g/dL (6.4-8.2) Albumin 2.8 g/dL (3.4-5.0) Albumin/Globulin Ratio 0.7 (1.0-1.7) Assessment and Plan Assessmemt and Plan Problems Medical Problems: (1) Bandemia Status: Acute (2) COVID-19 Status: Acute (3) Hypoxemia requiring supplemental oxygen Status: Acute (4) Renal insufficiency Status: Acute (5) Sepsis Status: Acu COVID-19 respiratory failure Plan Covid protocol Steroids Remdesivir IV antibiotics DVT pro Vitamins and minerals Beta agonists Home meds Appreciate subspecialist input Prognosis guarded Comment Review of Relevant I have reviewed the following items alessia (where applicable) has been applied. Medications: Current Medications Medications (Trade) Dose Ordered Sig/Andriy Route PRN Reason Start Time Stop Time Status Last Admin Dose Admin Remdesivir 100 mg/ Sodium Chloride 230 ml @ 460 mls/hr Q24H IV 10/31/21 19:00 06/17/21 19:29 06/14/21 18:23 Lactobacillus Rhamnosus (Culturelle) 1 cap BID PO 06/14/21 21:00 06/15/21 08:58 Justifications for Admission General Conditions Other justification for admit: Respiratory failure with hypoxia, COVID-19 Other Justification MADISON RODRIGUEZ III DO Jun 15, 2021 11:24
[2021-06-15] MEDS: cefTRIAXone IV Push 1 GM VIAL. IVP SCH (11:44)
[2021-06-15 15:00] VITALS: BP 133/66
[2021-06-15] MEDS: REMDESIVIR 100mg in NORMAL SALINE 250ML X 4 DAYS IV SCH (18:35)
[2021-06-15 19:00] VITALS: BP 150/73
[2021-06-15] MEDS: ENOXAPARIN 40 MG/0.4 ML SYRINGE. SQ SCH (20:23)
[2021-06-15 23:11] VITALS: BP 144/77
[2021-06-16 03:01] VITALS: BP 133/86
[2021-06-16 07:00] VITALS: BP 150/77
[2021-06-16] MEDS: ZINC SULFATE 220 MG CAPSULE. PO SCH (08:37)
[2021-06-16] MEDS: LACTOBACILLUS RHAMNOSUS GG 1 CAPSULE. PO SCH ×2 (08:37→20:07)
[2021-06-16] MEDS: ASCORBIC ACID 500 MG TABLET PO SCH ×2 (08:38→20:07)
[2021-06-16] MEDS: DOXYCYCLINE HYCLATE 100 MG TABLET PO SCH ×2 (08:38→20:07)
[2021-06-16] MEDS: DEXAMETHASONE SOD PHOS 4 MG/ML VIAL IVP SCH (08:38)
[2021-06-16] MEDS: cefTRIAXone IV Push 1 GM VIAL. IVP SCH (10:33)
[2021-06-16 11:00] VITALS: BP 144/70
--- NOTE | 2021-06-16 11:42 | PDOC ---
[employer] PROGRESS NOTE Date of Service DOS: DATE: 06/16/21 TIME: 11:40 Chief Complaint Chief Complaint Acute respiratory failure with hypoxia, Acute lung injury with bilateral infiltrates COVID-19 pneumonia sepsis, POA Hyponatremia, acute illness, dry SHADY, acute vasomotor nephropathy Hypercalcemia HTN HLD GERD History of Present Illness History of Present Illness 06/16/2021 Patient seen and examined He is on 100% rebreather Chart reviewed Discussed with RN Discussed with pharmacy He is getting day 4 remdesivir today at 17 06/15/2020 Patient seen and examined Discussed with RN Chart reviewed He is currently on a 100% nonrebreather Vitals/I&O Vitals/I&O: Vital Signs Date Time Temp Pulse Resp B/P (MAP) Pulse Ox O2 Delivery O2 Flow Rate FiO2 06/16/21 07:00 97.0 97 18 150/77 (101) 90 NonRebreather Mask 15.0 97.0 I & O 06/15/21 06/15/21 06/16/21 15:00 23:00 07:00 Intake Total 120 ml Output Total 300 ml 501 ml Balance -180 ml -501 ml Physical Exam General: Alert, Oriented X3, Cooperative, mild distress Heart: Normal S1 Lungs: Other (rales, no wheeze, no cough) Abdomen: Normal bowel sounds Extremities: No clubbing, No edema Skin: No breakdown Assessment and Plan Assessmemt and Plan Problems Medical Problems: (1) Bandemia Status: Acute (2) COVID-19 Status: Acute (3) Hypoxemia requiring supplemental oxygen Status: Acute (4) Renal insufficiency Status: Acute (5) Sepsis Status: Acute COVID-19 respiratory failure Plan Covid protocol Steroids Remdesivir IV antibiotics DVT pro Vitamins and minerals Beta agonists Home meds Appreciate subspecialist input Prognosis guarded Comment Review of Relevant I have reviewed the following items alessia (where applicable) has been applied. Justifications for Admission General Conditions Other justification for admit: Respiratory failure with hypoxia, COVID-19 Other Justification MADISON RODRIGUEZ III, DO Jun 16, 2021 11:41
[2021-06-16 14:58] VITALS: BP 145/72
[2021-06-16 19:00] VITALS: BP 157/81
[2021-06-16] MEDS: ENOXAPARIN 40 MG/0.4 ML SYRINGE. SQ SCH (20:07)
[2021-06-16] MEDS: REMDESIVIR 100mg in NORMAL SALINE 250ML X 4 DAYS IV SCH (20:07)
[2021-06-16 23:00] VITALS: BP 159/77
[2021-06-17 03:00] VITALS: BP 164/85
[2021-06-17 07:00] VITALS: BP 155/83
--- NOTE | 2021-06-17 08:45 | PDOC ---
[employer] PROGRESS NOTE Date of Service DOS: DATE: 06/17/21 TIME: 08:37 Chief Complaint Chief Complaint Bandemia COVID-19 Hypoxemia requiring supp O2 Renal insufficiency Sepsis Acute respiratory failure with hypoxia Acute lung injury with bilateral infiltrates pneumonia Hyponatremia, acute illness, dry SHADY, acute vasomotor nephropathy Hypercalcemia HTN HLD GERD History of Present Illness History of Present Illness 06/17/2021 Patient seen and examined at bedside. Patient reports feeling about the same as yesterday. Chart reviewed Discussed with RN and case management. 06/16/2021 Patient seen and examined He is on 100% rebreather Chart reviewed Discussed with RN Discussed with pharmacy He is getting day 4 remdesivir today at 17 06/15/2020 Patient seen and examined Discussed with RN Chart reviewed He is currently on a 100% nonrebreather Vitals/I&O Vitals/I&O: Vital Signs Date Time Temp Pulse Resp B/P (MAP) Pulse Ox O2 Delivery O2 Flow Rate FiO2 06/17/21 07:00 98.7 103 22 155/83 (107) 88 NonRebreather Mask 88.0 98.7 I & O 06/16/21 06/16/21 06/17/21 15:00 23:00 07:00 Intake Total 450 ml 200 ml Balance 450 ml 200 ml Physical Exam General: Alert, Oriented X3, Cooperative, mild distress Heart: Normal S1 Lungs: Other (rales, no wheeze, no cough) Abdomen: Normal bowel sounds Extremities: No clubbing, No edema Skin: No breakdown Review of Systems Review of Systems: ROS negative except as noted in HPI. Assessment and Plan Assessmemt and Plan Assessment: Bandemia COVID-19 Hypoxemia requiring supp O2 Renal insufficiency Sepsis Acute respiratory failure with hypoxia Acute lung injury with bilateral infiltrates pneumonia Hyponatremia, acute illness, dry SHADY, acute vasomotor nephropathy Hypercalcemia HTN HLD GERD Plan Covid protocol Steroids Remdesivir IV antibiotics DVT ppx Vitamins and minerals Beta agonists Home meds Appreciate subspecialist input Prognosis guarded Comment Review of Relevant I have reviewed the following items alessia (where applicable) has been applied. Justifications for Admission General Conditions Other justification for admit: Respiratory failure with hypoxia, COVID-19 Other Justification MADISON RODRIGUEZ III DO Jun 17, 2021 08:45
[2021-06-17] MEDS: DOXYCYCLINE HYCLATE 100 MG TABLET PO SCH ×2 (09:54→20:42)
[2021-06-17] MEDS: LACTOBACILLUS RHAMNOSUS GG 1 CAPSULE. PO SCH ×2 (09:54→20:42)
[2021-06-17] MEDS: ASCORBIC ACID 500 MG TABLET PO SCH ×2 (09:54→20:42)
[2021-06-17] MEDS: DEXAMETHASONE SOD PHOS 4 MG/ML VIAL IVP SCH (09:55)
[2021-06-17] MEDS: ZINC SULFATE 220 MG CAPSULE. PO SCH (09:55)
[2021-06-17] MEDS: cefTRIAXone IV Push 1 GM VIAL. IVP SCH (09:57)
[2021-06-17 11:00] VITALS: BP 145/83
[2021-06-17 15:00] VITALS: BP 140/83
[2021-06-17 19:00] VITALS: BP 159/81
[2021-06-17] MEDS: REMDESIVIR 100mg in NORMAL SALINE 250ML X 4 DAYS IV SCH (20:42)
[2021-06-17] MEDS: ENOXAPARIN 40 MG/0.4 ML SYRINGE. SQ SCH (20:42)
[2021-06-17 23:00] VITALS: BP 151/74
[2021-06-18] VITALS (15 sets, daily range): BP systolic 119–148; BP diastolic 71–92
[2021-06-18] MEDS: LACTOBACILLUS RHAMNOSUS GG 1 CAPSULE. PO SCH ×2 (09:26→20:57)
[2021-06-18] MEDS: DEXAMETHASONE SOD PHOS 4 MG/ML VIAL IVP SCH (09:26)
[2021-06-18] MEDS: ZINC SULFATE 220 MG CAPSULE. PO SCH (09:26)
[2021-06-18] MEDS: DOXYCYCLINE HYCLATE 100 MG TABLET PO SCH ×2 (09:26→20:57)
[2021-06-18] MEDS: ASCORBIC ACID 500 MG TABLET PO SCH ×2 (09:26→20:57)
[2021-06-18] MEDS: cefTRIAXone IV Push 1 GM VIAL. IVP SCH (10:20)
--- NOTE | 2021-06-18 10:43 | PDOC ---
[employer] [facility] PROGRESS NOTE Date of Service DOS: DATE: 06/18/21 TIME: 10:39 Chief Complaint Chief Complaint Bandemia COVID-19 Hypoxemia requiring supp O2 Renal insufficiency Sepsis Acute respiratory failure with hypoxia Acute lung injury with bilateral infiltrates pneumonia Hyponatremia, acute illness, dry SHADY, acute vasomotor nephropathy Hypercalcemia HTN HLD GERD History of Present Illness History of Present Illness 06/18/2021 Patient kin and examined He is on 100% Non-rebreather mask 12L O2 per NC Chart reviewed DW RN 06/17/2021 Patient seen and examined at bedside. Patient reports feeling about the same as yesterday. Chart reviewed Discussed with RN and case management. 06/16/2021 Patient seen and examined He is on 100% rebreather Chart reviewed Discussed with RN Discussed with pharmacy He is getting day 4 remdesivir today at 17 06/15/2020 Patient seen and examined Discussed with RN Chart reviewed He is currently on a 100% nonrebreather Vitals/I&O Vitals/I&O: Vital Signs Date Time Temp Pulse Resp B/P (MAP) Pulse Ox O2 Delivery O2 Flow Rate FiO2 06/18/21 08:30 Non-Rebreather 15.0 06/18/21 07:00 98.0 93 19 128/86 (100) 90 98.0 I & O 06/17/21 06/17/21 06/18/21 15:00 23:00 07:00 Output Total 800 ml 75 ml 300 ml Balance -800 ml -75 ml -300 ml Physical Exam General: Alert, Oriented X3, Cooperative, mild distress Heart: Normal S1 Lungs: Other (rales, no wheeze, no cough) Abdomen: Normal bowel sounds Extremities: No clubbing, No edema Skin: No breakdown Assessment and Plan Assessmemt and Plan COVID-19 respiratory failure Hypoxemia requiring supp O2 Renal insufficiency Sepsis Acute respiratory failure with hypoxia Acute lung injury with bilateral infiltrates pneumonia Hyponatremia, acute illness, dry SHADY, acute vasomotor nephropathy Hypercalcemia HTN HLD GERD Plan Continue Covid protocol Steroids Remdesivir IV antibiotics DVT ppx Vitamins and minerals Beta agonists Home meds Appreciate subspecialist input Prognosis guarded Comment Review of Relevant I have reviewed the following items alessia (where applicable) has been applied. Justifications for Admission General Conditions Other justification for admit: Respiratory failure with hypoxia, COVID-19 Other Justification MADISON RODRIGUEZ III DO Jun 18, 2021 10:43
[2021-06-18 11:03] LABS: BASO % 0 % (0-3); EOS % 0 % (0-3); HEMATOCRIT 42.9 % (39.0-53.0); HEMOGLOBIN 14.5 g/dL (13.0-17.5); LYMPH # 0.4 x10^3/uL (1.0-4.8); LYMPH % 6 % (24-48); MEAN CORPUSCULAR HEMOGLOBIN 32 pg (25-35); MEAN CORPUSCULAR HGB CONC 34 g/dL (31-37); MEAN CORPUSCULAR VOLUME 95 fL (79-100); MONO # 0.2 x10^3/uL (0.0-1.1); MONO % 2 % (0-9); NEUT # 6.2 x10^3/uL (1.8-7.7); NEUT % 92 % (31-73); PLATELET COUNT 351 x10^3/uL (140-400); RED BLOOD COUNT 4.52 x10^6/uL (4.30-5.70); RED CELL DISTRIBUTION WIDTH 12.6 % (11.5-14.5); WHITE BLOOD COUNT 6.8 x10^3/uL (4.0-11.0)
[2021-06-18 11:27] LABS: ALBUMIN 2.4 g/dL (3.4-5.0); ALBUMIN/GLOBULIN RATIO 0.6 (1.0-1.7); CALCIUM 8.1 mg/dL (8.5-10.1); CREATININE 0.9 mg/dL (0.7-1.3); GFR 83.9; POTASSIUM 3.8 mmol/L (3.5-5.1); TOTAL BILIRUBIN 0.6 mg/dL (0.2-1.0); TOTAL PROTEIN 6.2 g/dL (6.4-8.2)
--- NOTE | 2021-06-18 17:16 | NUR ---
This RN notified Dr. Sage in regards to pt's worsening O2 status. Pt's O2 sats sustained at approx high 70's%-low 90's%. Orders received for pulmonary and ID consult, STAT ABG and STAT chest x-ray. Pt currently on 15 L nonrebreather in addition to 15 L high flow nasal cannula. Will monitor for changes.
--- NOTE | 2021-06-18 17:28 | NUR ---
This RN called and spoke with Dr. Maya in regards to pt's worsening O2 status. Orders received to transfer pt to ICU and place on BiPAP or vapotherm. Nursing restaurant supervisor paged for bed. Awaiting call back.
--- NOTE | 2021-06-18 18:00 | RAD ---
EXAMINATION: Chest radiograph. VIEWS: Single view COMPARISON: 06/13/2021 INDICATION:70 years, Male, worsening respiratory status FINDINGS: Normal cardiomediastinal silhouette. Worsening diffuse bilateral pulmonary infiltrates compared to th e prior CT exam with allowing differences in modality. Calcified left hilar lymph nodes. No pleural e ffusion or pneumothorax. No acute osseous process. IMPRESSION: Worsening diffuse bilateral pulmonary infiltrates compared to the prior CT exam, with allowing differ ences in modality. Findings consistent with known COVID 19 pneumonia. Electronically signed by: Christine Smalls MD (06/18/2021 5:57 PM) [facility]
[2021-06-18 18:25] LABS: BASE EXCESS ABG 0 mmol/L (-3-3); HCO3 ABG 22 mmol/L (21-28); PCO2 ABG 29 mmHg (35-46); PO2 ABG 67 mmHg (65-108); SAT O2 ABG 94 % (92-99)
--- NOTE | 2021-06-18 18:29 | NUR ---
Pt transferred to room 109 via bed at 1810. Placed on vapotherm upon arrival to ICU. Belongings sent with pt. Pt stated he would inform family himself. Transfer of care given to CIERRA Lala.
[2021-06-18 18:31] LABS: FIO2 ABG 100% vapothern +nrb
[2021-06-18] MEDS ORDERED: NORMAL SALINE IV ONE (20:00)
[2021-06-18] MEDS ORDERED: TOCILIZUMAB IV ONE (20:00)
[2021-06-18] MEDS: ENOXAPARIN 40 MG/0.4 ML SYRINGE. SQ SCH (20:57)
[2021-06-19] VITALS (30 sets, daily range): BP systolic 117–150; BP diastolic 65–86
[2021-06-19] MEDS: STERILE WATER for RESP 2,000 ML BAG. INH PRN (02:39)
[2021-06-19 04:49] LABS: BASO % 0 % (0-3); EOS % 0 % (0-3); HEMATOCRIT 39.6 % (39.0-53.0); HEMOGLOBIN 13.4 g/dL (13.0-17.5); LYMPH # 0.7 x10^3/uL (1.0-4.8); LYMPH % 12 % (24-48); MEAN CORPUSCULAR HEMOGLOBIN 32 pg (25-35); MEAN CORPUSCULAR HGB CONC 34 g/dL (31-37); MEAN CORPUSCULAR VOLUME 95 fL (79-100); MONO # 0.2 x10^3/uL (0.0-1.1); MONO % 3 % (0-9); NEUT # 4.8 x10^3/uL (1.8-7.7); NEUT % 85 % (31-73); PLATELET COUNT 312 x10^3/uL (140-400); RED BLOOD COUNT 4.18 x10^6/uL (4.30-5.70); RED CELL DISTRIBUTION WIDTH 12.4 % (11.5-14.5); WHITE BLOOD COUNT 5.7 x10^3/uL (4.0-11.0)
[2021-06-19 05:04] LABS: ALBUMIN 2.2 g/dL (3.4-5.0); ALBUMIN/GLOBULIN RATIO 0.6 (1.0-1.7); CREATININE 0.9 mg/dL (0.7-1.3); GFR 83.9; POTASSIUM 3.9 mmol/L (3.5-5.1); TOTAL BILIRUBIN 0.7 mg/dL (0.2-1.0)
--- NOTE | 2021-06-19 10:20 | PDOC ---
PULMONARY PROGRESS NOTES DATE: 06/19/21 TIME: 10:18 Vitals Vital Signs Date Time Temp Pulse Resp B/P (MAP) Pulse Ox O2 Delivery O2 Flow Rate FiO2 06/19/21 09:31 89 vapotherm + nrb 40.0 06/19/21 06:00 73 18 125/66 (85) 06/19/21 04:00 97.8 97.8 Lungs: Other (rales, no wheeze, no cough) Labs Laboratory Tests Test 06/18/21 10:20 06/18/21 10:35 06/18/21 17:13 06/19/21 04:40 White Blood Count 6.8 x10^3/uL (4.0-11.0) 5.7 x10^3/uL (4.0-11.0) Red Blood Count 4.52 x10^6/uL (4.30-5.70) 4.18 x10^6/uL (4.30-5.70) Hemoglobin 14.5 g/dL (13.0-17.5) 13.4 g/dL (13.0-17.5) Hematocrit 42.9 % (39.0-53.0) 39.6 % (39.0-53.0) Mean Corpuscular Volume 95 fL (79-100) 95 fL (79-100) Mean Corpuscular Hemoglobin 32 pg (25-35) 32 pg (25-35) Mean Corpuscular Hemoglobin Concent 34 g/dL (31-37) 34 g/dL (31-37) Red Cell Distribution Width 12.6 % (11.5-14.5) 12.4 % (11.5-14.5) Platelet Count 351 x10^3/uL (140-400) 312 x10^3/uL (140-400) Neutrophils (%) (Auto) 92 % (31-73) 85 % (31-73) Lymphocytes (%) (Auto) 6 % (24-48) 12 % (24-48) Monocytes (%) (Auto) 2 % (0-9) 3 % (0-9) Eosinophils (%) (Auto) 0 % (0-3) 0 % (0-3) Basophils (%) (Auto) 0 % (0-3) 0 % (0-3) Neutrophils # (Auto) 6.2 x10^3/uL (1.8-7.7) 4.8 x10^3/uL (1.8-7.7) Lymphocytes # (Auto) 0.4 x10^3/uL (1.0-4.8) 0.7 x10^3/uL (1.0-4.8) Monocytes # (Auto) 0.2 x10^3/uL (0.0-1.1) 0.2 x10^3/uL (0.0-1.1) Eosinophils # (Auto) 0.0 x10^3/uL (0.0-0.7) 0.0 x10^3/uL (0.0-0.7) Basophils # (Auto) 0.0 x10^3/uL (0.0-0.2) 0.0 x10^3/uL (0.0-0.2) Sodium Level 135 mmol/L (136-145) 136 mmol/L (136-145) Potassium Level 3.8 mmol/L (3.5-5.1) 3.9 mmol/L (3.5-5.1) Chloride Level 99 mmol/L (98-107) 102 mmol/L (98-107) Carbon Dioxide Level 23 mmol/L (21-32) 27 mmol/L (21-32) Anion Gap 13 (6-14) 7 (6-14) Blood Urea Nitrogen 20 mg/dL (8-26) 25 mg/dL (8-26) Creatinine 0.9 mg/dL (0.7-1.3) 0.9 mg/dL (0.7-1.3) Estimated GFR (Cockcroft-Gault) 83.9 83.9 BUN/Creatinine Ratio 22 (6-20) 28 (6-20) Glucose Level 135 mg/dL (70-99) 128 mg/dL (70-99) Calcium Level 8.1 mg/dL (8.5-10.1) 8.0 mg/dL (8.5-10.1) Total Bilirubin 0.6 mg/dL (0.2-1.0) 0.7 mg/dL (0.2-1.0) Aspartate Amino Transf (AST/SGOT) 40 U/L (15-37) 29 U/L (15-37) Alanine Aminotransferase (ALT/SGPT) 38 U/L (16-63) 32 U/L (16-63) Alkaline Phosphatase 51 U/L (46-116) 47 U/L (46-116) C-Reactive Protein, Quantitative 118.5 mg/L (0-3.3) Total Protein 6.2 g/dL (6.4-8.2) 6.0 g/dL (6.4-8.2) Albumin 2.4 g/dL (3.4-5.0) 2.2 g/dL (3.4-5.0) Albumin/Globulin Ratio 0.6 (1.0-1.7) 0.6 (1.0-1.7) O2 Saturation 94 % (92-99) Arterial Blood pH 7.49 (7.35-7.45) Arterial Blood pCO2 at Patient Temp 29 mmHg (35-46) Arterial Blood pO2 at Patient Temp 67 mmHg (65-108) Arterial Blood HCO3 22 mmol/L (21-28) Arterial Blood Base Excess 0 mmol/L (-3-3) FiO2 100% vapothern +nrb Laboratory Tests Test 06/18/21 10:20 06/18/21 10:35 06/18/21 17:13 06/19/21 04:40 White Blood Count 6.8 x10^3/uL (4.0-11.0) 5.7 x10^3/uL (4.0-11.0) Red Blood Count 4.52 x10^6/uL (4.30-5.70) 4.18 x10^6/uL (4.30-5.70) Hemoglobin 14.5 g/dL (13.0-17.5) 13.4 g/dL (13.0-17.5) Hematocrit 42.9 % (39.0-53.0) 39.6 % (39.0-53.0) Mean Corpuscular Volume 95 fL (79-100) 95 fL (79-100) Mean Corpuscular Hemoglobin 32 pg (25-35) 32 pg (25-35) Mean Corpuscular Hemoglobin Concent 34 g/dL (31-37) 34 g/dL (31-37) Red Cell Distribution Width 12.6 % (11.5-14.5) 12.4 % (11.5-14.5) Platelet Count 351 x10^3/uL (140-400) 312 x10^3/uL (140-400) Neutrophils (%) (Auto) 92 % (31-73) 85 % (31-73) Lymphocytes (%) (Auto) 6 % (24-48) 12 % (24-48) Monocytes (%) (Auto) 2 % (0-9) 3 % (0-9) Eosinophils (%) (Auto) 0 % (0-3) 0 % (0-3) Basophils (%) (Auto) 0 % (0-3) 0 % (0-3) Neutrophils # (Auto) 6.2 x10^3/uL (1.8-7.7) 4.8 x10^3/uL (1.8-7.7) Lymphocytes # (Auto) 0.4 x10^3/uL (1.0-4.8) 0.7 x10^3/uL (1.0-4.8) Monocytes # (Auto) 0.2 x10^3/uL (0.0-1.1) 0.2 x10^3/uL (0.0-1.1) Eosinophils # (Auto) 0.0 x10^3/uL (0.0-0.7) 0.0 x10^3/uL (0.0-0.7) Basophils # (Auto) 0.0 x10^3/uL (0.0-0.2) 0.0 x10^3/uL (0.0-0.2) Sodium Level 135 mmol/L (136-145) 136 mmol/L (136-145) Potassium Level 3.8 mmol/L (3.5-5.1) 3.9 mmol/L (3.5-5.1) Chloride Level 99 mmol/L (98-107) 102 mmol/L (98-107) Carbon Dioxide Level 23 mmol/L (21-32) 27 mmol/L (21-32) Anion Gap 13 (6-14) 7 (6-14) Blood Urea Nitrogen 20 mg/dL (8-26) 25 mg/dL (8-26) Creatinine 0.9 mg/dL (0.7-1.3) 0.9 mg/dL (0.7-1.3) Estimated GFR (Cockcroft-Gault) 83.9 83.9 BUN/Creatinine Ratio 22 (6-20) 28 (6-20) Glucose Level 135 mg/dL (70-99) 128 mg/dL (70-99) Calcium Level 8.1 mg/dL (8.5-10.1) 8.0 mg/dL (8.5-10.1) Total Bilirubin 0.6 mg/dL (0.2-1.0) 0.7 mg/dL (0.2-1.0) Aspartate Amino Transf (AST/SGOT) 40 U/L (15-37) 29 U/L (15-37) Alanine Aminotransferase (ALT/SGPT) 38 U/L (16-63) 32 U/L (16-63) Alkaline Phosphatase 51 U/L (46-116) 47 U/L (46-116) C-Reactive Protein, Quantitative 118.5 mg/L (0-3.3) Total Protein 6.2 g/dL (6.4-8.2) 6.0 g/dL (6.4-8.2) Albumin 2.4 g/dL (3.4-5.0) 2.2 g/dL (3.4-5.0) Albumin/Globulin Ratio 0.6 (1.0-1.7) 0.6 (1.0-1.7) O2 Saturation 94 % (92-99) Arterial Blood pH 7.49 (7.35-7.45) Arterial Blood pCO2 at Patient Temp 29 mmHg (35-46) Arterial Blood pO2 at Patient Temp 67 mmHg (65-108) Arterial Blood HCO3 22 mmol/L (21-28) Arterial Blood Base Excess 0 mmol/L (-3-3) FiO2 100% vapothern +nrb Impression . Full consult dictated Acute hypoxemic respiratory failure related to COVID-19 viral pneumonia Tocilizumab given yesterday Continue current support THELMA YIP MD Jun 19, 2021 10:20
--- NOTE | 2021-06-19 10:34 | CONS ---
DATE OF CONSULTATION: 06/19/2021 ATTENDING PHYSICIAN: Abdias Sage DO REASON FOR CONSULTATION: The patient is seen in pulmonary consultation at the request of Dr. Sage for acute hypoxemic respiratory failure related to COVID. HISTORY OF PRESENT ILLNESS: The patient is a 70-year-old that has a history of hypertension; hyperlipidemia; remote use of tobacco dependence, quit 40 years ago, presented with flu-like symptoms over past 8 days. The patient went to an urgent care center, was tested positive for COVID-19. He was sent to home with oxygen monitor. He progressed and presented to the Emergency Room. Since his admission, he has deteriorated, yesterday he was transferred to the intensive care unit. He is currently on Vapotherm 40 liter flow 100%. I was asked to see him in consultation. The patient had a chest x-ray, which revealed bilateral infiltrates. CT angiogram confirmed bilateral infiltrates compatible with COVID-19. There was no evidence of pulmonary embolism. Since his admission, he has received doxycycline, remdesivir and Rocephin along with steroids. Yesterday, I gave him tocilizumab. He is currently awake, alert, following commands. He indicates that he was not vaccinated against COVID-19. PAST MEDICAL HISTORY: Remarkable for hyperlipidemia, hypertension, gastroesophageal reflux, coronary artery disease, tobacco dependence in remission, suspect COPD. PAST SURGICAL HISTORY: No recent major surgeries. FAMILY HISTORY: Noncontributory. SOCIAL HISTORY: He is currently retired. Does not smoke. REVIEW OF SYSTEMS: As indicated above, otherwise a 10-point system was reviewed and negative. CURRENT MEDICATIONS: List was reviewed. PHYSICAL EXAMINATION: VITAL SIGNS: Stable. O2 saturation was greater than 92%. HEENT: Eyes: The sclerae were nonicteric. NECK: Jugular venous distention was not elevated. No lymphadenopathy. CHEST: Full expansion. LUNGS: Adequate flow. No wheezes. CARDIOVASCULAR: Regular rate and rhythm with S1, S2. No S3. ABDOMEN: Soft. EXTREMITIES: No clubbing or cyanosis. No pitting edema. LABORATORY DATA: Arterial blood gas yesterday on Vapotherm pH of 7.49, PaCO2 of 29, pO2 of 67. White count was normal. Electrolytes were noted. BUN and creatinine elevated. AST and ALT are not elevated. Serology for SARS-CoV-[address] rapid test [address] positive. CT angiogram and chest x-ray reviewed. IMPRESSION: 1. Acute on chronic respiratory failure. 2. COVID-[address] revealing no evidence of pulmonary embolism. 4. Chronic obstructive pulmonary disease. 5. Other comorbidities as listed above. PLAN: 1. Continue oxygen supplementation, the patient is critically ill. 2. Support with steroids. 3. Received remdesivir yesterday. 4. Empiric antibiotics. I do appreciate the privilege in sharing in the patient's care. Total cumulative critical care time of 40 minutes with no overlap. SAMUEL DR: Janes TID: [id number]
[2021-06-19] MEDS: LACTOBACILLUS RHAMNOSUS GG 1 CAPSULE. PO SCH ×2 (11:02→20:24)
[2021-06-19] MEDS: DEXAMETHASONE SOD PHOS 4 MG/ML VIAL IVP SCH (11:02)
[2021-06-19] MEDS: ASCORBIC ACID 500 MG TABLET PO SCH ×2 (11:03→20:24)
[2021-06-19] MEDS: ZINC SULFATE 220 MG CAPSULE. PO SCH (11:03)
--- NOTE | 2021-06-19 12:28 | CONS ---
DATE OF CONSULTATION: 06/19/2021 REFERRING PHYSICIAN: Abdias Sage DO REASON FOR CONSULTATION: COVID positive. HISTORY OF PRESENT ILLNESS: A 70-year-old male admitted with acute hypoxic respiratory failure from COVID-19 infection. The patient was on dexamethasone, remdesivir, Rocephin, doxycycline, and tocilizumab. ID consultation has been requested for antibiotic management. The patient had history of shortness of breath, cough. He went to urgent care before presenting to [facility]. He was tested positive for COVID-19. He was sent home with oximetry. He continued to get worse, so he was admitted to medical floor initially. Last night, his respiratory status got worse. He was transferred to ICU on Vapotherm. Currently, the patient remains on Vapotherm. He is alert, awake, denies any complaints. He did have diarrhea a couple of days ago. Currently, none. He has not had bowel movements for the last 2 days. PAST MEDICAL HISTORY: Hyperlipidemia, hypertension, coronary artery disease, GERD. PAST SURGICAL HISTORY: None. FAMILY HISTORY: See HPI. SOCIAL HISTORY: Denies smoking, Retired. No alcohol.Lives at home He is not vaccinated for COVID-19. REVIEW OF SYSTEMS: Negative except for above in HPI. CURRENT MEDICATIONS: Ceftriaxone and doxycycline has been discontinued. Dexamethasone. Tocilizumab one dose yesterday. Status post remdesivir. PHYSICAL EXAMINATION: VITAL SIGNS: Afebrile, T-max on 06/18 was 99.9, pulse 73, respiratory rate 18, blood pressure 123/66, oxygen saturation 89% on Vapotherm 40%. GENERAL: Alert, awake male, on Vapotherm, appears comfortable. HEENT: Normocephalic, atraumatic. Anicteric. No thrush. Oral mucosa dry. NECK: Supple, no JVD. LUNGS: Decreased breath sounds. No expiratory wheezing. HEART: S1, S2, no murmurs. ABDOMEN: Soft, nontender, nondistended. Bowel sounds present. EXTREMITIES: No edema, no cyanosis. DERMATOLOGIC: Warm, dry, no generalized rash. NEUROLOGIC: Alert and oriented x 3, grossly nonfocal. PSYCHIATRIC: Calm and cooperative. LABORATORY DATA: WBC 5.7, hemoglobin 13.4, hematocrit 39.6, platelets 312. Sodium 136, potassium 3.9, chloride 102, bicarb 27, BUN 25, creatinine 0.9, glucose 128, albumin 2.2. SARS-COVID positive on 06/13/2021. Influenza screen negative. DIAGNOSTICS: CTA reviewed. IMAGING: Chest x-ray, worsening diffuse bilateral pulmonary infiltrates. IMPRESSION: 1. COVID-19 viral pneumonia. 2. Acute hypoxic respiratory failure, on Vapotherm. 3. Leukocytosis. 4. Lymphopenia and bandemia. 5. Acute kidney injury, improved. 6. Mild protein-calorie malnutrition. RECOMMENDATIONS: 1. Agree with discontinuing Rocephin and doxycycline. 2. Continue supportive care. 3. Pulmonary team has been consulted. 4. Monitor labs and cultures. 5. Status post remdesivir and tocilizumab x1 . 6. Currently on steroids. Thank you, Dr. Sage, for consulting Infectious Disease to participate in this patient's care. If you have any questions, do not hesitate to contact me. Discussed with nursing staff and DR Sage. CLARENCE DR: Cynthia TID: [id number] MTDD
--- NOTE | 2021-06-19 15:53 | NUR ---
SS following for discharge planning. SS reviewed pt chart and discussed with pt RN. Pt is from home and is currently on Vapotherm and Non-Rebreather at 100%. COVID19 positive. Pt on IV Decadron. Not stable. SS will continue to follow for discharge planning.
--- NOTE | 2021-06-19 19:56 | PDOC ---
[employer] PROGRESS NOTE Date of Service DOS: DATE: 06/19/21 TIME: 19:53 Chief Complaint Chief Complaint Bandemia COVID-19 Hypoxemia requiring supp O2 Renal insufficiency Sepsis Acute respiratory failure with hypoxia Acute lung injury with bilateral infiltrates pneumonia Hyponatremia, acute illness, dry SHADY, acute vasomotor nephropathy Hypercalcemia HTN HLD GERD History of Present Illness History of Present Illness 06/19 Patient evaluated and examined at bedside. He was on 15 L nonrebreather and Vapotherm however Vapotherm was not even in his nose and he was saturating well. I woke him sleep he had no complaints. Continue current plan. 06/18/2021 Patient kin and examined He is on 100% Non-rebreather mask 12L O2 per NC Chart reviewed DW RN 06/17/2021 Patient seen and examined at bedside. Patient reports feeling about the same as yesterday. Chart reviewed Discussed with RN and case management. 06/16/2021 Patient seen and examined He is on 100% rebreather Chart reviewed Discussed with RN Discussed with pharmacy He is getting day 4 remdesivir today at 17 06/15/2020 Patient seen and examined Discussed with RN Chart reviewed He is currently on a 100% nonrebreather Vitals/I&O Vitals/I&O: Vital Signs Date Time Temp Pulse Resp B/P (MAP) Pulse Ox O2 Delivery O2 Flow Rate FiO2 06/19/21 19:00 94 22 136/73 (94) 91 Vapotherm 40.0 06/19/21 16:00 97.7 97.7 I & O 06/18/21 06/18/21 06/19/21 15:00 23:00 07:00 Intake Total 100 ml Output Total 75 ml 150 ml 195 ml Balance -75 ml -50 ml -195 ml Physical Exam General: Alert, Oriented X3, Cooperative, mild distress Heart: Normal S1 Lungs: Other (rales, no wheeze, no cough) Abdomen: Normal bowel sounds Extremities: No clubbing, No edema Skin: No breakdown Labs Labs: Laboratory Tests Test 06/19/21 04:40 White Blood Count 5.7 x10^3/uL (4.0-11.0) Red Blood Count 4.18 x10^6/uL (4.30-5.70) Hemoglobin 13.4 g/dL (13.0-17.5) Hematocrit 39.6 % (39.0-53.0) Mean Corpuscular Volume 95 fL (79-100) Mean Corpuscular Hemoglobin 32 pg (25-35) Mean Corpuscular Hemoglobin Concent 34 g/dL (31-37) Red Cell Distribution Width 12.4 % (11.5-14.5) Platelet Count 312 x10^3/uL (140-400) Neutrophils (%) (Auto) 85 % (31-73) Lymphocytes (%) (Auto) 12 % (24-48) Monocytes (%) (Auto) 3 % (0-9) Eosinophils (%) (Auto) 0 % (0-3) Basophils (%) (Auto) 0 % (0-3) Neutrophils # (Auto) 4.8 x10^3/uL (1.8-7.7) Lymphocytes # (Auto) 0.7 x10^3/uL (1.0-4.8) Monocytes # (Auto) 0.2 x10^3/uL (0.0-1.1) Eosinophils # (Auto) 0.0 x10^3/uL (0.0-0.7) Basophils # (Auto) 0.0 x10^3/uL (0.0-0.2) Sodium Level 136 mmol/L (136-145) Potassium Level 3.9 mmol/L (3.5-5.1) Chloride Level 102 mmol/L (98-107) Carbon Dioxide Level 27 mmol/L (21-32) Anion Gap 7 (6-14) Blood Urea Nitrogen 25 mg/dL (8-26) Creatinine 0.9 mg/dL (0.7-1.3) Estimated GFR (Cockcroft-Gault) 83.9 BUN/Creatinine Ratio 28 (6-20) Glucose Level 128 mg/dL (70-99) Calcium Level 8.0 mg/dL (8.5-10.1) Total Bilirubin 0.7 mg/dL (0.2-1.0) Aspartate Amino Transf (AST/SGOT) 29 U/L (15-37) Alanine Aminotransferase (ALT/SGPT) 32 U/L (16-63) Alkaline Phosphatase 47 U/L (46-116) Total Protein 6.0 g/dL (6.4-8.2) Albumin 2.2 g/dL (3.4-5.0) Albumin/Globulin Ratio 0.6 (1.0-1.7) Assessment and Plan Assessmemt and Plan Problems Medical Problems: (1) Bandemia Status: Acute (2) COVID-19 Status: Acute (3) Hypoxemia requiring supplemental oxygen Status: Acute (4) Renal insufficiency Status: Acute (5) Sepsis Status: Acute Comment Review of Relevant I have reviewed the following items alessia (where applicable) has been applied. Medications: Current Medications Medications (Trade) Dose Ordered Sig/Andriy Route PRN Reason Start Time Stop Time Status Last Admin Dose Admin Tocilizumab 600 mg/Sodium Chloride 100 ml @ 100 mls/hr 1X ONCE IV 06/18/21 20:00 06/18/21 20:59 DC 06/18/21 21:00 Justifications for Admission General Conditions Other justification for admit: Respiratory failure with hypoxia, COVID-19 Other Justification MARKUS BRIGHT MD Jun 19, 2021 19:56
[2021-06-19] MEDS: ENOXAPARIN 40 MG/0.4 ML SYRINGE. SQ SCH (20:24)
[2021-06-20] VITALS (24 sets, daily range): BP systolic 121–157; BP diastolic 70–88
[2021-06-20] MEDS: STERILE WATER for RESP 2,000 ML BAG. INH PRN ×2 (02:08→15:54)
[2021-06-20 02:55] LABS: ALBUMIN 2.2 g/dL (3.4-5.0); ALBUMIN/GLOBULIN RATIO 0.6 (1.0-1.7); CALCIUM 8.1 mg/dL (8.5-10.1); CREATININE 0.9 mg/dL (0.7-1.3); GFR 83.9; TOTAL BILIRUBIN 0.6 mg/dL (0.2-1.0); TOTAL PROTEIN 5.9 g/dL (6.4-8.2)
[2021-06-20 03:14] LABS: BASO % 0 % (0-3); EOS % 0 % (0-3); HEMATOCRIT 39.2 % (39.0-53.0); HEMOGLOBIN 13.4 g/dL (13.0-17.5); LYMPH # 0.5 x10^3/uL (1.0-4.8); LYMPH % 4 % (24-48); MEAN CORPUSCULAR HEMOGLOBIN 32 pg (25-35); MEAN CORPUSCULAR HGB CONC 34 g/dL (31-37); MEAN CORPUSCULAR VOLUME 94 fL (79-100); MONO # 0.3 x10^3/uL (0.0-1.1); MONO % 3 % (0-9); NEUT # 10.1 x10^3/uL (1.8-7.7); NEUT % 93 % (31-73); PLATELET COUNT 344 x10^3/uL (140-400); RED BLOOD COUNT 4.16 x10^6/uL (4.30-5.70); RED CELL DISTRIBUTION WIDTH 12.2 % (11.5-14.5); WHITE BLOOD COUNT 10.8 x10^3/uL (4.0-11.0)
--- NOTE | 2021-06-20 05:44 | PDOC ---
PULMONARY PROGRESS NOTES DATE: 06/20/21 TIME: 05:43 Subjective on vapotherm 40 lpm 100% fio2 off nrb mask denies cough cp Vitals Vital Signs Date Time Temp Pulse Resp B/P (MAP) Pulse Ox O2 Delivery O2 Flow Rate FiO2 06/20/21 05:00 88 27 144/88 (106) 96 Vapotherm 40.0 06/20/21 04:00 98.0 98.0 Comments no distress nc at rrr no accessory muscle use no paradoixcal abd motion no rash Lungs: Other Labs Laboratory Tests Test 06/18/21 10:20 06/18/21 10:35 06/18/21 17:13 06/19/21 04:40 White Blood Count 6.8 x10^3/uL (4.0-11.0) 5.7 x10^3/uL (4.0-11.0) Red Blood Count 4.52 x10^6/uL (4.30-5.70) 4.18 x10^6/uL (4.30-5.70) Hemoglobin 14.5 g/dL (13.0-17.5) 13.4 g/dL (13.0-17.5) Hematocrit 42.9 % (39.0-53.0) 39.6 % (39.0-53.0) Mean Corpuscular Volume 95 fL (79-100) 95 fL (79-100) Mean Corpuscular Hemoglobin 32 pg (25-35) 32 pg (25-35) Mean Corpuscular Hemoglobin Concent 34 g/dL (31-37) 34 g/dL (31-37) Red Cell Distribution Width 12.6 % (11.5-14.5) 12.4 % (11.5-14.5) Platelet Count 351 x10^3/uL (140-400) 312 x10^3/uL (140-400) Neutrophils (%) (Auto) 92 % (31-73) 85 % (31-73) Lymphocytes (%) (Auto) 6 % (24-48) 12 % (24-48) Monocytes (%) (Auto) 2 % (0-9) 3 % (0-9) Eosinophils (%) (Auto) 0 % (0-3) 0 % (0-3) Basophils (%) (Auto) 0 % (0-3) 0 % (0-3) Neutrophils # (Auto) 6.2 x10^3/uL (1.8-7.7) 4.8 x10^3/uL (1.8-7.7) Lymphocytes # (Auto) 0.4 x10^3/uL (1.0-4.8) 0.7 x10^3/uL (1.0-4.8) Monocytes # (Auto) 0.2 x10^3/uL (0.0-1.1) 0.2 x10^3/uL (0.0-1.1) Eosinophils # (Auto) 0.0 x10^3/uL (0.0-0.7) 0.0 x10^3/uL (0.0-0.7) Basophils # (Auto) 0.0 x10^3/uL (0.0-0.2) 0.0 x10^3/uL (0.0-0.2) Sodium Level 135 mmol/L (136-145) 136 mmol/L (136-145) Potassium Level 3.8 mmol/L (3.5-5.1) 3.9 mmol/L (3.5-5.1) Chloride Level 99 mmol/L (98-107) 102 mmol/L (98-107) Carbon Dioxide Level 23 mmol/L (21-32) 27 mmol/L (21-32) Anion Gap 13 (6-14) 7 (6-14) Blood Urea Nitrogen 20 mg/dL (8-26) 25 mg/dL (8-26) Creatinine 0.9 mg/dL (0.7-1.3) 0.9 mg/dL (0.7-1.3) Estimated GFR (Cockcroft-Gault) 83.9 83.9 BUN/Creatinine Ratio 22 (6-20) 28 (6-20) Glucose Level 135 mg/dL (70-99) 128 mg/dL (70-99) Calcium Level 8.1 mg/dL (8.5-10.1) 8.0 mg/dL (8.5-10.1) Total Bilirubin 0.6 mg/dL (0.2-1.0) 0.7 mg/dL (0.2-1.0) Aspartate Amino Transf (AST/SGOT) 40 U/L (15-37) 29 U/L (15-37) Alanine Aminotransferase (ALT/SGPT) 38 U/L (16-63) 32 U/L (16-63) Alkaline Phosphatase 51 U/L (46-116) 47 U/L (46-116) C-Reactive Protein, Quantitative 118.5 mg/L (0-3.3) Total Protein 6.2 g/dL (6.4-8.2) 6.0 g/dL (6.4-8.2) Albumin 2.4 g/dL (3.4-5.0) 2.2 g/dL (3.4-5.0) Albumin/Globulin Ratio 0.6 (1.0-1.7) 0.6 (1.0-1.7) O2 Saturation 94 % (92-99) Arterial Blood pH 7.49 (7.35-7.45) Arterial Blood pCO2 at Patient Temp 29 mmHg (35-46) Arterial Blood pO2 at Patient Temp 67 mmHg (65-108) Arterial Blood HCO3 22 mmol/L (21-28) Arterial Blood Base Excess 0 mmol/L (-3-3) FiO2 100% vapothern +nrb Test 06/20/21 02:30 White Blood Count 10.8 x10^3/uL (4.0-11.0) Red Blood Count 4.16 x10^6/uL (4.30-5.70) Hemoglobin 13.4 g/dL (13.0-17.5) Hematocrit 39.2 % (39.0-53.0) Mean Corpuscular Volume 94 fL (79-100) Mean Corpuscular Hemoglobin 32 pg (25-35) Mean Corpuscular Hemoglobin Concent 34 g/dL (31-37) Red Cell Distribution Width 12.2 % (11.5-14.5) Platelet Count 344 x10^3/uL (140-400) Neutrophils (%) (Auto) 93 % (31-73) Lymphocytes (%) (Auto) 4 % (24-48) Monocytes (%) (Auto) 3 % (0-9) Eosinophils (%) (Auto) 0 % (0-3) Basophils (%) (Auto) 0 % (0-3) Neutrophils # (Auto) 10.1 x10^3/uL (1.8-7.7) Lymphocytes # (Auto) 0.5 x10^3/uL (1.0-4.8) Monocytes # (Auto) 0.3 x10^3/uL (0.0-1.1) Eosinophils # (Auto) 0.0 x10^3/uL (0.0-0.7) Basophils # (Auto) 0.0 x10^3/uL (0.0-0.2) Sodium Level 136 mmol/L (136-145) Potassium Level 4.0 mmol/L (3.5-5.1) Chloride Level 100 mmol/L (98-107) Carbon Dioxide Level 25 mmol/L (21-32) Anion Gap 11 (6-14) Blood Urea Nitrogen 29 mg/dL (8-26) Creatinine 0.9 mg/dL (0.7-1.3) Estimated GFR (Cockcroft-Gault) 83.9 BUN/Creatinine Ratio 32 (6-20) Glucose Level 147 mg/dL (70-99) Calcium Level 8.1 mg/dL (8.5-10.1) Total Bilirubin 0.6 mg/dL (0.2-1.0) Aspartate Amino Transf (AST/SGOT) 21 U/L (15-37) Alanine Aminotransferase (ALT/SGPT) 34 U/L (16-63) Alkaline Phosphatase 50 U/L (46-116) Total Protein 5.9 g/dL (6.4-8.2) Albumin 2.2 g/dL (3.4-5.0) Albumin/Globulin Ratio 0.6 (1.0-1.7) Laboratory Tests Test 06/20/21 02:30 White Blood Count 10.8 x10^3/uL (4.0-11.0) Red Blood Count 4.16 x10^6/uL (4.30-5.70) Hemoglobin 13.4 g/dL (13.0-17.5) Hematocrit 39.2 % (39.0-53.0) Mean Corpuscular Volume 94 fL (79-100) Mean Corpuscular Hemoglobin 32 pg (25-35) Mean Corpuscular Hemoglobin Concent 34 g/dL (31-37) Red Cell Distribution Width 12.2 % (11.5-14.5) Platelet Count 344 x10^3/uL (140-400) Neutrophils (%) (Auto) 93 % (31-73) Lymphocytes (%) (Auto) 4 % (24-48) Monocytes (%) (Auto) 3 % (0-9) Eosinophils (%) (Auto) 0 % (0-3) Basophils (%) (Auto) 0 % (0-3) Neutrophils # (Auto) 10.1 x10^3/uL (1.8-7.7) Lymphocytes # (Auto) 0.5 x10^3/uL (1.0-4.8) Monocytes # (Auto) 0.3 x10^3/uL (0.0-1.1) Eosinophils # (Auto) 0.0 x10^3/uL (0.0-0.7) Basophils # (Auto) 0.0 x10^3/uL (0.0-0.2) Sodium Level 136 mmol/L (136-145) Potassium Level 4.0 mmol/L (3.5-5.1) Chloride Level 100 mmol/L (98-107) Carbon Dioxide Level 25 mmol/L (21-32) Anion Gap 11 (6-14) Blood Urea Nitrogen 29 mg/dL (8-26) Creatinine 0.9 mg/dL (0.7-1.3) Estimated GFR (Cockcroft-Gault) 83.9 BUN/Creatinine Ratio 32 (6-20) Glucose Level 147 mg/dL (70-99) Calcium Level 8.1 mg/dL (8.5-10.1) Total Bilirubin 0.6 mg/dL (0.2-1.0) Aspartate Amino Transf (AST/SGOT) 21 U/L (15-37) Alanine Aminotransferase (ALT/SGPT) 34 U/L (16-63) Alkaline Phosphatase 50 U/L (46-116) Total Protein 5.9 g/dL (6.4-8.2) Albumin 2.2 g/dL (3.4-5.0) Albumin/Globulin Ratio 0.6 (1.0-1.7) Impression . IMPRESSION: 1. Acute on chronic respiratory failure. 2. COVID-[address] revealing no evidence of pulmonary embolism. 4. Chronic obstructive pulmonary disease. 5. Other comorbidities as listed above. Plan . PLAN: 1. Continue oxygen supplementation, titrate fio2 as tolerated 2. steroids. 3. remdesivir 4. Empiric antibiotics 5. lovenox for dvt prophylaxis increase to bid 6. pepcid for stress ulcer prophylaxis discussed w NAM Canela MD Jun 20, 2021 05:44
[2021-06-20] MEDS: LACTOBACILLUS RHAMNOSUS GG 1 CAPSULE. PO SCH ×2 (10:48→20:07)
[2021-06-20] MEDS: ZINC SULFATE 220 MG CAPSULE. PO SCH (10:48)
[2021-06-20] MEDS: ASCORBIC ACID 500 MG TABLET PO SCH ×2 (10:48→20:07)
[2021-06-20] MEDS: DEXAMETHASONE SOD PHOS 4 MG/ML VIAL IVP SCH (10:49)
--- NOTE | 2021-06-20 12:36 | PDOC ---
Infectious Disease Note Subjective: Subjective Pt on vapotherm alert and awake comfortable d/w RN Vital Signs: Vital Signs Vital Signs Date Time Temp Pulse Resp B/P (MAP) Pulse Ox O2 Delivery O2 Flow Rate FiO2 06/20/21 12:01 93 VapoTherm 40.0 06/20/21 08:00 98.1 74 24 140/82 (101) 98.1 Physical Exam: PHYSICAL EXAM Visual exam done with COVID pandemic GENERAL: Alert, awake male, on Vapotherm, appears comfortable. HEART: S1, S2 ABDOMEN: nondistended. DERMATOLOGIC: no generalized rash. NEUROLOGIC: Alert and awake Medications: Inpatient Meds: Medications reviewed. Labs: Lab Laboratory Tests Test 06/20/21 02:30 White Blood Count 10.8 x10^3/uL (4.0-11.0) Red Blood Count 4.16 x10^6/uL (4.30-5.70) Hemoglobin 13.4 g/dL (13.0-17.5) Hematocrit 39.2 % (39.0-53.0) Mean Corpuscular Volume 94 fL (79-100) Mean Corpuscular Hemoglobin 32 pg (25-35) Mean Corpuscular Hemoglobin Concent 34 g/dL (31-37) Red Cell Distribution Width 12.2 % (11.5-14.5) Platelet Count 344 x10^3/uL (140-400) Neutrophils (%) (Auto) 93 % (31-73) Lymphocytes (%) (Auto) 4 % (24-48) Monocytes (%) (Auto) 3 % (0-9) Eosinophils (%) (Auto) 0 % (0-3) Basophils (%) (Auto) 0 % (0-3) Neutrophils # (Auto) 10.1 x10^3/uL (1.8-7.7) Lymphocytes # (Auto) 0.5 x10^3/uL (1.0-4.8) Monocytes # (Auto) 0.3 x10^3/uL (0.0-1.1) Eosinophils # (Auto) 0.0 x10^3/uL (0.0-0.7) Basophils # (Auto) 0.0 x10^3/uL (0.0-0.2) Sodium Level 136 mmol/L (136-145) Potassium Level 4.0 mmol/L (3.5-5.1) Chloride Level 100 mmol/L (98-107) Carbon Dioxide Level 25 mmol/L (21-32) Anion Gap 11 (6-14) Blood Urea Nitrogen 29 mg/dL (8-26) Creatinine 0.9 mg/dL (0.7-1.3) Estimated GFR (Cockcroft-Gault) 83.9 BUN/Creatinine Ratio 32 (6-20) Glucose Level 147 mg/dL (70-99) Calcium Level 8.1 mg/dL (8.5-10.1) Total Bilirubin 0.6 mg/dL (0.2-1.0) Aspartate Amino Transf (AST/SGOT) 21 U/L (15-37) Alanine Aminotransferase (ALT/SGPT) 34 U/L (16-63) Alkaline Phosphatase 50 U/L (46-116) Total Protein 5.9 g/dL (6.4-8.2) Albumin 2.2 g/dL (3.4-5.0) Albumin/Globulin Ratio 0.6 (1.0-1.7) Objective: Assessment: 1. COVID-19 viral pneumonia. 2. Acute hypoxic respiratory failure, on Vapotherm. 3. Leukocytosis. 4. Lymphopenia and bandemia. 5. Acute kidney injury, improved. 6. Mild protein-calorie malnutrition. Plan: Plan of Care Continue supportive care. Status post remdesivir and tocilizumab. on steroids per primary Monitor labs and cultures. Pulm team following ID will sign off .Call with any questoins or concerns MISAEL HULL MD Jun 20, 2021 12:36
[2021-06-20] MEDS: FAMOTIDINE 20 MG TABLET. PO PRN (17:19)
[2021-06-20] MEDS: ENOXAPARIN 40 MG/0.4 ML SYRINGE. SQ SCH (20:08)
[2021-06-21] VITALS (24 sets, daily range): BP systolic 117–148; BP diastolic 60–83
--- NOTE | 2021-06-21 01:09 | NUR ---
0100 rounds/VS charted in accordance with end of daylight savings.
[2021-06-21 05:08] LABS: BASO % 0 % (0-3); EOS % 0 % (0-3); HEMATOCRIT 39.8 % (39.0-53.0); HEMOGLOBIN 13.4 g/dL (13.0-17.5); LYMPH # 0.8 x10^3/uL (1.0-4.8); LYMPH % 6 % (24-48); MEAN CORPUSCULAR HEMOGLOBIN 32 pg (25-35); MEAN CORPUSCULAR HGB CONC 34 g/dL (31-37); MEAN CORPUSCULAR VOLUME 95 fL (79-100); MONO # 0.5 x10^3/uL (0.0-1.1); MONO % 3 % (0-9); NEUT % 90 % (31-73); PLATELET COUNT 344 x10^3/uL (140-400); RED CELL DISTRIBUTION WIDTH 12.3 % (11.5-14.5); WHITE BLOOD COUNT 14.4 x10^3/uL (4.0-11.0)
[2021-06-21 05:23] LABS: ALBUMIN 2.1 g/dL (3.4-5.0); ALBUMIN/GLOBULIN RATIO 0.6 (1.0-1.7); CALCIUM 7.8 mg/dL (8.5-10.1); GFR 74.3; POTASSIUM 4.1 mmol/L (3.5-5.1); TOTAL BILIRUBIN 0.8 mg/dL (0.2-1.0); TOTAL PROTEIN 5.7 g/dL (6.4-8.2)
--- NOTE | 2021-06-21 05:58 | PDOC ---
PULMONARY PROGRESS NOTES DATE: 06/21/21 TIME: 05:56 Subjective on vapotherm 30 lpm 90% fio2 off nrb mask feels better denies cough cp Vitals Vital Signs Date Time Temp Pulse Resp B/P (MAP) Pulse Ox O2 Delivery O2 Flow Rate FiO2 06/21/21 05:00 75 23 130/72 (91) 94 Vapotherm 30.0 06/21/21 04:00 98.6 98.6 Comments no distress nc at rrr no accessory muscle use no paradoixcal abd motion no rash Lungs: Other Labs Laboratory Tests Test 06/20/21 02:30 06/21/21 04:30 White Blood Count 10.8 x10^3/uL (4.0-11.0) Red Blood Count 4.16 x10^6/uL (4.30-5.70) Hemoglobin 13.4 g/dL (13.0-17.5) Hematocrit 39.2 % (39.0-53.0) Mean Corpuscular Volume 94 fL (79-100) Mean Corpuscular Hemoglobin 32 pg (25-35) Mean Corpuscular Hemoglobin Concent 34 g/dL (31-37) Red Cell Distribution Width 12.2 % (11.5-14.5) Platelet Count 344 x10^3/uL (140-400) Neutrophils (%) (Auto) 93 % (31-73) Lymphocytes (%) (Auto) 4 % (24-48) Monocytes (%) (Auto) 3 % (0-9) Eosinophils (%) (Auto) 0 % (0-3) Basophils (%) (Auto) 0 % (0-3) Neutrophils # (Auto) 10.1 x10^3/uL (1.8-7.7) Lymphocytes # (Auto) 0.5 x10^3/uL (1.0-4.8) Monocytes # (Auto) 0.3 x10^3/uL (0.0-1.1) Eosinophils # (Auto) 0.0 x10^3/uL (0.0-0.7) Basophils # (Auto) 0.0 x10^3/uL (0.0-0.2) Sodium Level 136 mmol/L (136-145) 135 mmol/L (136-145) Potassium Level 4.0 mmol/L (3.5-5.1) 4.1 mmol/L (3.5-5.1) Chloride Level 100 mmol/L (98-107) 103 mmol/L (98-107) Carbon Dioxide Level 25 mmol/L (21-32) 27 mmol/L (21-32) Anion Gap 11 (6-14) 5 (6-14) Blood Urea Nitrogen 29 mg/dL (8-26) 25 mg/dL (8-26) Creatinine 0.9 mg/dL (0.7-1.3) 1.0 mg/dL (0.7-1.3) Estimated GFR (Cockcroft-Gault) 83.9 74.3 BUN/Creatinine Ratio 32 (6-20) 25 (6-20) Glucose Level 147 mg/dL (70-99) 111 mg/dL (70-99) Calcium Level 8.1 mg/dL (8.5-10.1) 7.8 mg/dL (8.5-10.1) Total Bilirubin 0.6 mg/dL (0.2-1.0) 0.8 mg/dL (0.2-1.0) Aspartate Amino Transf (AST/SGOT) 21 U/L (15-37) 24 U/L (15-37) Alanine Aminotransferase (ALT/SGPT) 34 U/L (16-63) 39 U/L (16-63) Alkaline Phosphatase 50 U/L (46-116) 57 U/L (46-116) Total Protein 5.9 g/dL (6.4-8.2) 5.7 g/dL (6.4-8.2) Albumin 2.2 g/dL (3.4-5.0) 2.1 g/dL (3.4-5.0) Albumin/Globulin Ratio 0.6 (1.0-1.7) 0.6 (1.0-1.7) Laboratory Tests Test 06/21/21 04:30 Sodium Level 135 mmol/L (136-145) Potassium Level 4.1 mmol/L (3.5-5.1) Chloride Level 103 mmol/L (98-107) Carbon Dioxide Level 27 mmol/L (21-32) Anion Gap 5 (6-14) Blood Urea Nitrogen 25 mg/dL (8-26) Creatinine 1.0 mg/dL (0.7-1.3) Estimated GFR (Cockcroft-Gault) 74.3 BUN/Creatinine Ratio 25 (6-20) Glucose Level 111 mg/dL (70-99) Calcium Level 7.8 mg/dL (8.5-10.1) Total Bilirubin 0.8 mg/dL (0.2-1.0) Aspartate Amino Transf (AST/SGOT) 24 U/L (15-37) Alanine Aminotransferase (ALT/SGPT) 39 U/L (16-63) Alkaline Phosphatase 57 U/L (46-116) Total Protein 5.7 g/dL (6.4-8.2) Albumin 2.1 g/dL (3.4-5.0) Albumin/Globulin Ratio 0.6 (1.0-1.7) Impression . IMPRESSION: 1. Acute on chronic respiratory failure. 2. COVID-[address] revealing no evidence of pulmonary embolism. 4. Chronic obstructive pulmonary disease. 5. Other comorbidities as listed above. Plan . 06/21 1. Continue oxygen supplementation, titrate fio2 as tolerated to keep sat 90% slowly improving 2. steroids. 3. remdesivir 4. Empiric antibiotics 5. lovenox for dvt prophylaxis increase to bid 6. pepcid for stress ulcer prophylaxis discussed w rn PLAN: 1. Continue oxygen supplementation, titrate fio2 as tolerated 2. steroids. 3. remdesivir 4. Empiric antibiotics 5. lovenox for dvt prophylaxis increase to bid 6. pepcid for stress ulcer prophylaxis discussed w NAM Canela MD Jun 21, 2021 05:58
[2021-06-21] MEDS: DEXAMETHASONE SOD PHOS 4 MG/ML VIAL IVP SCH (08:40)
[2021-06-21] MEDS: ASCORBIC ACID 500 MG TABLET PO SCH ×2 (08:40→20:08)
[2021-06-21] MEDS: LACTOBACILLUS RHAMNOSUS GG 1 CAPSULE. PO SCH ×2 (08:40→20:08)
[2021-06-21] MEDS: ZINC SULFATE 220 MG CAPSULE. PO SCH (08:40)
[2021-06-21] MEDS: FAMOTIDINE 20 MG TABLET. PO PRN (08:40)
--- NOTE | 2021-06-21 09:11 | PDOC ---
[employer] PROGRESS NOTE Date of Service DOS: DATE: 06/21/21 TIME: 09:10 Chief Complaint Chief Complaint Bandemia COVID-19 Hypoxemia requiring supp O2 Renal insufficiency Sepsis Acute respiratory failure with hypoxia Acute lung injury with bilateral infiltrates pneumonia Hyponatremia, acute illness, dry SHADY, acute vasomotor nephropathy Hypercalcemia HTN HLD GERD History of Present Illness History of Present Illness 06/20 Late entry for June 20 Patient evaluated examined at bedside. Requiring Vapotherm still saturations low 90s. He will need ICU admission. Continue COVID treatment. Plan of care discussed with bedside RN. 35 minutes critical care time spent on this patient. 06/19 Patient evaluated and examined at bedside. He was on 15 L nonrebreather and Vapotherm however Vapotherm was not even in his nose and he was saturating well. I woke him sleep he had no complaints. Continue current plan. 06/18/2021 Patient kin and examined He is on 100% Non-rebreather mask 12L O2 per NC Chart reviewed DW RN 06/17/2021 Patient seen and examined at bedside. Patient reports feeling about the same as yesterday. Chart reviewed Discussed with RN and case management. 06/16/2021 Patient seen and examined He is on 100% rebreather Chart reviewed Discussed with RN Discussed with pharmacy He is getting day 4 remdesivir today at 17 06/15/2020 Patient seen and examined Discussed with RN Chart reviewed He is currently on a 100% nonrebreather Vitals/I&O Vitals/I&O: Vital Signs Date Time Temp Pulse Resp B/P (MAP) Pulse Ox O2 Delivery O2 Flow Rate FiO2 06/21/21 08:30 93 VapoTherm 30.0 06/21/21 06:00 77 26 134/72 (92) 06/21/21 04:00 98.6 98.6 I & O 06/20/21 06/20/21 06/21/21 15:00 23:00 07:00 Intake Total 680 ml 345 ml Output Total 335 ml 575 ml 400 ml Balance 345 ml -230 ml -400 ml Physical Exam Physical Exam: Visual exam done with COVID pandemic GENERAL: Alert, awake male, on Vapotherm, appears comfortable. HEART: S1, S2 ABDOMEN: nondistended. DERMATOLOGIC: no generalized rash. NEUROLOGIC: Alert and awake General: Alert, Oriented X3, Cooperative, mild distress Heart: Regular rate, Normal S1 Lungs: Other Abdomen: Normal bowel sounds Extremities: No clubbing, No edema Skin: No breakdown Labs Labs: Laboratory Tests Test 06/21/21 04:30 White Blood Count 14.4 x10^3/uL (4.0-11.0) Red Blood Count 4.20 x10^6/uL (4.30-5.70) Hemoglobin 13.4 g/dL (13.0-17.5) Hematocrit 39.8 % (39.0-53.0) Mean Corpuscular Volume 95 fL (79-100) Mean Corpuscular Hemoglobin 32 pg (25-35) Mean Corpuscular Hemoglobin Concent 34 g/dL (31-37) Red Cell Distribution Width 12.3 % (11.5-14.5) Platelet Count 344 x10^3/uL (140-400) Neutrophils (%) (Auto) 90 % (31-73) Lymphocytes (%) (Auto) 6 % (24-48) Monocytes (%) (Auto) 3 % (0-9) Eosinophils (%) (Auto) 0 % (0-3) Basophils (%) (Auto) 0 % (0-3) Neutrophils # (Auto) 13.0 x10^3/uL (1.8-7.7) Lymphocytes # (Auto) 0.8 x10^3/uL (1.0-4.8) Monocytes # (Auto) 0.5 x10^3/uL (0.0-1.1) Eosinophils # (Auto) 0.0 x10^3/uL (0.0-0.7) Basophils # (Auto) 0.0 x10^3/uL (0.0-0.2) Sodium Level 135 mmol/L (136-145) Potassium Level 4.1 mmol/L (3.5-5.1) Chloride Level 103 mmol/L (98-107) Carbon Dioxide Level 27 mmol/L (21-32) Anion Gap 5 (6-14) Blood Urea Nitrogen 25 mg/dL (8-26) Creatinine 1.0 mg/dL (0.7-1.3) Estimated GFR (Cockcroft-Gault) 74.3 BUN/Creatinine Ratio 25 (6-20) Glucose Level 111 mg/dL (70-99) Calcium Level 7.8 mg/dL (8.5-10.1) Total Bilirubin 0.8 mg/dL (0.2-1.0) Aspartate Amino Transf (AST/SGOT) 24 U/L (15-37) Alanine Aminotransferase (ALT/SGPT) 39 U/L (16-63) Alkaline Phosphatase 57 U/L (46-116) Total Protein 5.7 g/dL (6.4-8.2) Albumin 2.1 g/dL (3.4-5.0) Albumin/Globulin Ratio 0.6 (1.0-1.7) Assessment and Plan Assessmemt and Plan Problems Medical Problems: (1) Bandemia Status: Acute (2) COVID-19 Status: Acute (3) Hypoxemia requiring supplemental oxygen Status: Acute (4) Renal insufficiency Status: Acute (5) Sepsis Status: Acute Comment Review of Relevant I have reviewed the following items alessia (where applicable) has been applied. Justifications for Admission General Conditions Other justification for admit: Respiratory failure with hypoxia, COVID-19 Other Justification MARKUS BRIGHT MD Jun 21, 2021 09:11
[2021-06-21 10:08] LABS: % BANDS 1 % (0-9); % LYMPHS 5 % (24-48); % MONOS 6 % (0-10); % SEGS 88 % (35-66); PLT ESTIMATE ADEQUATE (ADEQUATE)
--- NOTE | 2021-06-21 10:22 | PDOC ---
[employer] PROGRESS NOTE Date of Service DOS: DATE: 06/21/21 TIME: 10:21 Chief Complaint Chief Complaint Bandemia COVID-19 Hypoxemia requiring supp O2 Renal insufficiency Sepsis Acute respiratory failure with hypoxia Acute lung injury with bilateral infiltrates pneumonia Hyponatremia, acute illness, dry SHADY, acute vasomotor nephropathy Hypercalcemia HTN HLD GERD History of Present Illness History of Present Illness 06/21 Patient evaluated examined at bedside. Still requiring Vapotherm in the ICU. Continue current COVID treatments. Wean oxygen as tolerated. 35 minutes critical care time on this patient. 06/20 Late entry for June 20 Patient evaluated examined at bedside. Requiring Vapotherm still saturations low 90s. He will need ICU admission. Continue COVID treatment. Plan of care discussed with bedside RN. 35 minutes critical care time spent on this patient. 06/19 Patient evaluated and examined at bedside. He was on 15 L nonrebreather and Vapotherm however Vapotherm was not even in his nose and he was saturating well. I woke him sleep he had no complaints. Continue current plan. 06/18/2021 Patient kin and examined He is on 100% Non-rebreather mask 12L O2 per NC Chart reviewed DW RN 06/17/2021 Patient seen and examined at bedside. Patient reports feeling about the same as yesterday. Chart reviewed Discussed with RN and case management. 06/16/2021 Patient seen and examined He is on 100% rebreather Chart reviewed Discussed with RN Discussed with pharmacy He is getting day 4 remdesivir today at 17 06/15/2020 Patient seen and examined Discussed with RN Chart reviewed He is currently on a 100% nonrebreather Vitals/I&O Vitals/I&O: Vital Signs Date Time Temp Pulse Resp B/P (MAP) Pulse Ox O2 Delivery O2 Flow Rate FiO2 06/21/21 09:00 108 26 140/70 (93) 97 Vapotherm 30.0 06/21/21 08:00 98.5 98.5 I & O 06/20/21 06/20/21 06/21/21 15:00 23:00 07:00 Intake Total 680 ml 345 ml Output Total 335 ml 575 ml 400 ml Balance 345 ml -230 ml -400 ml Physical Exam Physical Exam: Visual exam done with COVID pandemic GENERAL: Alert, awake male, on Vapotherm, appears comfortable. HEART: S1, S2 ABDOMEN: nondistended. DERMATOLOGIC: no generalized rash. NEUROLOGIC: Alert and awake General: Alert, Oriented X3, Cooperative, mild distress Heart: Regular rate, Normal S1 Lungs: Other Abdomen: Normal bowel sounds Extremities: No clubbing, No edema Skin: No breakdown Labs Labs: Laboratory Tests Test 06/21/21 04:30 White Blood Count 14.4 x10^3/uL (4.0-11.0) Red Blood Count 4.20 x10^6/uL (4.30-5.70) Hemoglobin 13.4 g/dL (13.0-17.5) Hematocrit 39.8 % (39.0-53.0) Mean Corpuscular Volume 95 fL (79-100) Mean Corpuscular Hemoglobin 32 pg (25-35) Mean Corpuscular Hemoglobin Concent 34 g/dL (31-37) Red Cell Distribution Width 12.3 % (11.5-14.5) Platelet Count 344 x10^3/uL (140-400) Neutrophils (%) (Auto) 90 % (31-73) Lymphocytes (%) (Auto) 6 % (24-48) Monocytes (%) (Auto) 3 % (0-9) Eosinophils (%) (Auto) 0 % (0-3) Basophils (%) (Auto) 0 % (0-3) Neutrophils # (Auto) 13.0 x10^3/uL (1.8-7.7) Lymphocytes # (Auto) 0.8 x10^3/uL (1.0-4.8) Monocytes # (Auto) 0.5 x10^3/uL (0.0-1.1) Eosinophils # (Auto) 0.0 x10^3/uL (0.0-0.7) Basophils # (Auto) 0.0 x10^3/uL (0.0-0.2) Segmented Neutrophils % 88 % (35-66) Band Neutrophils % 1 % (0-9) Lymphocytes % 5 % (24-48) Monocytes % 6 % (0-10) Platelet Estimate Adequate (ADEQUATE) Sodium Level 135 mmol/L (136-145) Potassium Level 4.1 mmol/L (3.5-5.1) Chloride Level 103 mmol/L (98-107) Carbon Dioxide Level 27 mmol/L (21-32) Anion Gap 5 (6-14) Blood Urea Nitrogen 25 mg/dL (8-26) Creatinine 1.0 mg/dL (0.7-1.3) Estimated GFR (Cockcroft-Gault) 74.3 BUN/Creatinine Ratio 25 (6-20) Glucose Level 111 mg/dL (70-99) Calcium Level 7.8 mg/dL (8.5-10.1) Total Bilirubin 0.8 mg/dL (0.2-1.0) Aspartate Amino Transf (AST/SGOT) 24 U/L (15-37) Alanine Aminotransferase (ALT/SGPT) 39 U/L (16-63) Alkaline Phosphatase 57 U/L (46-116) Total Protein 5.7 g/dL (6.4-8.2) Albumin 2.1 g/dL (3.4-5.0) Albumin/Globulin Ratio 0.6 (1.0-1.7) Assessment and Plan Assessmemt and Plan Problems Medical Problems: (1) Bandemia Status: Acute (2) COVID-19 Status: Acute (3) Hypoxemia requiring supplemental oxygen Status: Acute (4) Renal insufficiency Status: Acute (5) Sepsis Status: Acute Comment Review of Relevant I have reviewed the following items alessia (where applicable) has been applied. Justifications for Admission General Conditions Other justification for admit: Respiratory failure with hypoxia, COVID-19 Other Justification MARKUS BRIGHT MD Jun 21, 2021 10:22
[2021-06-21] MEDS: ENOXAPARIN 40 MG/0.4 ML SYRINGE. SQ SCH ×2 (15:23→20:09)
[2021-06-22] VITALS (25 sets, daily range): BP systolic 105–152; BP diastolic 59–85
[2021-06-22 04:55] LABS: BASO % 0 % (0-3); EOS # 0.3 x10^3/uL (0.0-0.7); EOS % 2 % (0-3); HEMATOCRIT 41.7 % (39.0-53.0); LYMPH # 1.7 x10^3/uL (1.0-4.8); LYMPH % 10 % (24-48); MEAN CORPUSCULAR HEMOGLOBIN 32 pg (25-35); MEAN CORPUSCULAR HGB CONC 34 g/dL (31-37); MEAN CORPUSCULAR VOLUME 95 fL (79-100); MONO # 0.5 x10^3/uL (0.0-1.1); MONO % 3 % (0-9); NEUT # 13.8 x10^3/uL (1.8-7.7); NEUT % 85 % (31-73); PLATELET COUNT 374 x10^3/uL (140-400); RED BLOOD COUNT 4.38 x10^6/uL (4.30-5.70); RED CELL DISTRIBUTION WIDTH 12.7 % (11.5-14.5); WHITE BLOOD COUNT 16.4 x10^3/uL (4.0-11.0)
[2021-06-22] MEDS: STERILE WATER for RESP 2,000 ML BAG. INH PRN (05:28)
[2021-06-22 05:34] LABS: ALBUMIN 2.4 g/dL (3.4-5.0); ALBUMIN/GLOBULIN RATIO 0.7 (1.0-1.7); CALCIUM 7.8 mg/dL (8.5-10.1); CREATININE 0.9 mg/dL (0.7-1.3); GFR 83.9; POTASSIUM 4.3 mmol/L (3.5-5.1); TOTAL PROTEIN 5.8 g/dL (6.4-8.2)
[2021-06-22] MEDS: FAMOTIDINE 20 MG TABLET. PO PRN (08:19)
[2021-06-22] MEDS: ZINC SULFATE 220 MG CAPSULE. PO SCH (08:26)
[2021-06-22] MEDS: ASCORBIC ACID 500 MG TABLET PO SCH ×2 (08:26→20:26)
[2021-06-22] MEDS: ENOXAPARIN 40 MG/0.4 ML SYRINGE. SQ SCH ×2 (08:26→20:27)
[2021-06-22] MEDS: LACTOBACILLUS RHAMNOSUS GG 1 CAPSULE. PO SCH ×2 (08:26→20:26)
[2021-06-22] MEDS: DEXAMETHASONE SOD PHOS 4 MG/ML VIAL IVP SCH (08:27)
--- NOTE | 2021-06-22 09:52 | PDOC ---
[employer] PROGRESS NOTE Date of Service DOS: DATE: 06/22/21 TIME: 09:39 Chief Complaint Chief Complaint Bandemia COVID-19 Hypoxemia requiring supp O2 Renal insufficiency Sepsis Acute respiratory failure with hypoxia Acute lung injury with bilateral infiltrates pneumonia Hyponatremia, acute illness, dry SHADY, acute vasomotor nephropathy Hypercalcemia HTN HLD GERD History of Present Illness History of Present Illness 06/22: WBC 16.4. On Vapotherm 30 L/min 80% FiO2. Saturations 91%. He removed his Vapotherm with O2 sats down to the 50s. Having some loose stools. Increased appetite. CC time 35 minutes 06/21: Patient evaluated examined at bedside. Still requiring Vapotherm in the ICU. Continue current COVID treatments. Wean oxygen as tolerated. 06/20: Patient evaluated examined at bedside. Requiring Vapotherm still saturations low 90s. He will need ICU admission. Continue COVID treatment. Plan of care discussed with bedside RN. 06/19: Patient evaluated and examined at bedside. He was on 15 L nonrebreather and Vapotherm however Vapotherm was not even in his nose and he was saturating well. I woke him sleep he had no complaints. Continue current plan. 06/18: Patient seen and examined. He is on 100% Non-rebreather mask. 12L O2 per NC 06/17: Patient seen and examined at bedside. Patient reports feeling about the same as yesterday. 06/16: Patient seen and examined. He is on 100% rebreather. He is getting day 4 remdesivir today at 17 06/15: Patient seen and examined. He is currently on a 100% nonrebreather HPI: Mr Jasso is a 64-year-old man with past medical history HTN, HLD, GERD, who presents to the ER with complaints of shortness of breath since day before admission He reports "cold-like symptoms "over the past 8 days prior to presentation. He went to an urgent care, was diagnosed with COVID-19 on 06/12/2021. He was sent home with a a home oxygen monitor and was told to come back to the ED if his O2 saturation dropped below 90. At home his oxygen saturations were reading in the 80s, so he came to the ER for further evaluation. Labs on admission showed WBC 14.3, sodium 129, BUN 31, creatinine 1.5, CBG 164, AST 45, ALT 47. CTA chest showed no evidence of pulmonary embolus, but patchy groundglass opacities throughout both lungs consistent with COVID-19 pneumonitis, mild mediastinal lymphadenopathy, and coronary artery calcifications. He has not been vaccinated against COVID-19. He was given IV fluids, Rocephin, and doxycycline in the ED. Admitted patient for further medical management. Vitals/I&O Vitals/I&O: Vital Signs Date Time Temp Pulse Resp B/P (MAP) Pulse Ox O2 Delivery O2 Flow Rate FiO2 06/22/21 09:05 95 VapoTherm 30.0 06/22/21 07:00 80 28 112/61 (78) 06/22/21 04:00 98.6 98.6 I & O 06/21/21 06/21/21 06/22/21 15:00 23:00 07:00 Intake Total 460 ml 240 ml 125 ml Output Total 285 ml 335 ml 375 ml Balance 175 ml -95 ml -250 ml Physical Exam Physical Exam: Visual exam done with COVID pandemic GENERAL: Alert, awake male, on Vapotherm, appears comfortable. HEART: S1, S2 ABDOMEN: nondistended. DERMATOLOGIC: no generalized rash. NEUROLOGIC: Alert and awake General: Alert, Oriented X3, Cooperative, mild distress Heart: Regular rate, Normal S1 Lungs: Other Abdomen: Normal bowel sounds Extremities: No clubbing, No edema Skin: No breakdown Labs Labs: Laboratory Tests Test 06/22/21 04:35 White Blood Count 16.4 x10^3/uL (4.0-11.0) Red Blood Count 4.38 x10^6/uL (4.30-5.70) Hemoglobin 14.0 g/dL (13.0-17.5) Hematocrit 41.7 % (39.0-53.0) Mean Corpuscular Volume 95 fL (79-100) Mean Corpuscular Hemoglobin 32 pg (25-35) Mean Corpuscular Hemoglobin Concent 34 g/dL (31-37) Red Cell Distribution Width 12.7 % (11.5-14.5) Platelet Count 374 x10^3/uL (140-400) Neutrophils (%) (Auto) 85 % (31-73) Lymphocytes (%) (Auto) 10 % (24-48) Monocytes (%) (Auto) 3 % (0-9) Eosinophils (%) (Auto) 2 % (0-3) Basophils (%) (Auto) 0 % (0-3) Neutrophils # (Auto) 13.8 x10^3/uL (1.8-7.7) Lymphocytes # (Auto) 1.7 x10^3/uL (1.0-4.8) Monocytes # (Auto) 0.5 x10^3/uL (0.0-1.1) Eosinophils # (Auto) 0.3 x10^3/uL (0.0-0.7) Basophils # (Auto) 0.0 x10^3/uL (0.0-0.2) Sodium Level 135 mmol/L (136-145) Potassium Level 4.3 mmol/L (3.5-5.1) Chloride Level 102 mmol/L (98-107) Carbon Dioxide Level 26 mmol/L (21-32) Anion Gap 7 (6-14) Blood Urea Nitrogen 24 mg/dL (8-26) Creatinine 0.9 mg/dL (0.7-1.3) Estimated GFR (Cockcroft-Gault) 83.9 BUN/Creatinine Ratio 27 (6-20) Glucose Level 84 mg/dL (70-99) Calcium Level 7.8 mg/dL (8.5-10.1) Total Bilirubin 1.0 mg/dL (0.2-1.0) Aspartate Amino Transf (AST/SGOT) 37 U/L (15-37) Alanine Aminotransferase (ALT/SGPT) 60 U/L (16-63) Alkaline Phosphatase 53 U/L (46-116) Total Protein 5.8 g/dL (6.4-8.2) Albumin 2.4 g/dL (3.4-5.0) Albumin/Globulin Ratio 0.7 (1.0-1.7) Assessment and Plan Assessmemt and Plan Problems Medical Problems: (1) Bandemia Status: Acute (2) COVID-19 Status: Acute (3) Hypoxemia requiring supplemental oxygen Status: Acute (4) Renal insufficiency Status: Acute (5) Sepsis Status: Acute Comment Review of Relevant I have reviewed the following items alessia (where applicable) has been applied. Medications: Current Medications Medications (Trade) Dose Ordered Sig/Andriy Route PRN Reason Start Time Stop Time Status Last Admin Dose Admin Enoxaparin Sodium (Lovenox 40mg Syringe) 40 mg Q12HR SQ 06/21/21 12:00 06/22/21 08:26 Justifications for Admission General Conditions Other justification for admit: Respiratory failure with hypoxia, COVID-19 Other Justification MARKUS BENNETT MD Jun 22, 2021 09:52
--- NOTE | 2021-06-22 10:27 | PDOC ---
PULMONARY PROGRESS NOTES DATE: 06/22/21 TIME: 10:26 Subjective on vapotherm 30 lpm 80% fio2 off nrb mask feels better denies cough cp Vitals Vital Signs Date Time Temp Pulse Resp B/P (MAP) Pulse Ox O2 Delivery O2 Flow Rate FiO2 06/22/21 09:05 95 VapoTherm 30.0 06/22/21 07:00 80 28 112/61 (78) 06/22/21 04:00 98.6 98.6 Comments no distress nc at rrr no accessory muscle use no paradoixcal abd motion no rash Labs Laboratory Tests Test 06/21/21 04:30 06/22/21 04:35 White Blood Count 14.4 x10^3/uL (4.0-11.0) 16.4 x10^3/uL (4.0-11.0) Red Blood Count 4.20 x10^6/uL (4.30-5.70) 4.38 x10^6/uL (4.30-5.70) Hemoglobin 13.4 g/dL (13.0-17.5) 14.0 g/dL (13.0-17.5) Hematocrit 39.8 % (39.0-53.0) 41.7 % (39.0-53.0) Mean Corpuscular Volume 95 fL (79-100) 95 fL (79-100) Mean Corpuscular Hemoglobin 32 pg (25-35) 32 pg (25-35) Mean Corpuscular Hemoglobin Concent 34 g/dL (31-37) 34 g/dL (31-37) Red Cell Distribution Width 12.3 % (11.5-14.5) 12.7 % (11.5-14.5) Platelet Count 344 x10^3/uL (140-400) 374 x10^3/uL (140-400) Neutrophils (%) (Auto) 90 % (31-73) 85 % (31-73) Lymphocytes (%) (Auto) 6 % (24-48) 10 % (24-48) Monocytes (%) (Auto) 3 % (0-9) 3 % (0-9) Eosinophils (%) (Auto) 0 % (0-3) 2 % (0-3) Basophils (%) (Auto) 0 % (0-3) 0 % (0-3) Neutrophils # (Auto) 13.0 x10^3/uL (1.8-7.7) 13.8 x10^3/uL (1.8-7.7) Lymphocytes # (Auto) 0.8 x10^3/uL (1.0-4.8) 1.7 x10^3/uL (1.0-4.8) Monocytes # (Auto) 0.5 x10^3/uL (0.0-1.1) 0.5 x10^3/uL (0.0-1.1) Eosinophils # (Auto) 0.0 x10^3/uL (0.0-0.7) 0.3 x10^3/uL (0.0-0.7) Basophils # (Auto) 0.0 x10^3/uL (0.0-0.2) 0.0 x10^3/uL (0.0-0.2) Segmented Neutrophils % 88 % (35-66) Band Neutrophils % 1 % (0-9) Lymphocytes % 5 % (24-48) Monocytes % 6 % (0-10) Platelet Estimate Adequate (ADEQUATE) Sodium Level 135 mmol/L (136-145) 135 mmol/L (136-145) Potassium Level 4.1 mmol/L (3.5-5.1) 4.3 mmol/L (3.5-5.1) Chloride Level 103 mmol/L (98-107) 102 mmol/L (98-107) Carbon Dioxide Level 27 mmol/L (21-32) 26 mmol/L (21-32) Anion Gap 5 (6-14) 7 (6-14) Blood Urea Nitrogen 25 mg/dL (8-26) 24 mg/dL (8-26) Creatinine 1.0 mg/dL (0.7-1.3) 0.9 mg/dL (0.7-1.3) Estimated GFR (Cockcroft-Gault) 74.3 83.9 BUN/Creatinine Ratio 25 (6-20) 27 (6-20) Glucose Level 111 mg/dL (70-99) 84 mg/dL (70-99) Calcium Level 7.8 mg/dL (8.5-10.1) 7.8 mg/dL (8.5-10.1) Total Bilirubin 0.8 mg/dL (0.2-1.0) 1.0 mg/dL (0.2-1.0) Aspartate Amino Transf (AST/SGOT) 24 U/L (15-37) 37 U/L (15-37) Alanine Aminotransferase (ALT/SGPT) 39 U/L (16-63) 60 U/L (16-63) Alkaline Phosphatase 57 U/L (46-116) 53 U/L (46-116) Total Protein 5.7 g/dL (6.4-8.2) 5.8 g/dL (6.4-8.2) Albumin 2.1 g/dL (3.4-5.0) 2.4 g/dL (3.4-5.0) Albumin/Globulin Ratio 0.6 (1.0-1.7) 0.7 (1.0-1.7) Laboratory Tests Test 06/22/21 04:35 White Blood Count 16.4 x10^3/uL (4.0-11.0) Red Blood Count 4.38 x10^6/uL (4.30-5.70) Hemoglobin 14.0 g/dL (13.0-17.5) Hematocrit 41.7 % (39.0-53.0) Mean Corpuscular Volume 95 fL (79-100) Mean Corpuscular Hemoglobin 32 pg (25-35) Mean Corpuscular Hemoglobin Concent 34 g/dL (31-37) Red Cell Distribution Width 12.7 % (11.5-14.5) Platelet Count 374 x10^3/uL (140-400) Neutrophils (%) (Auto) 85 % (31-73) Lymphocytes (%) (Auto) 10 % (24-48) Monocytes (%) (Auto) 3 % (0-9) Eosinophils (%) (Auto) 2 % (0-3) Basophils (%) (Auto) 0 % (0-3) Neutrophils # (Auto) 13.8 x10^3/uL (1.8-7.7) Lymphocytes # (Auto) 1.7 x10^3/uL (1.0-4.8) Monocytes # (Auto) 0.5 x10^3/uL (0.0-1.1) Eosinophils # (Auto) 0.3 x10^3/uL (0.0-0.7) Basophils # (Auto) 0.0 x10^3/uL (0.0-0.2) Sodium Level 135 mmol/L (136-145) Potassium Level 4.3 mmol/L (3.5-5.1) Chloride Level 102 mmol/L (98-107) Carbon Dioxide Level 26 mmol/L (21-32) Anion Gap 7 (6-14) Blood Urea Nitrogen 24 mg/dL (8-26) Creatinine 0.9 mg/dL (0.7-1.3) Estimated GFR (Cockcroft-Gault) 83.9 BUN/Creatinine Ratio 27 (6-20) Glucose Level 84 mg/dL (70-99) Calcium Level 7.8 mg/dL (8.5-10.1) Total Bilirubin 1.0 mg/dL (0.2-1.0) Aspartate Amino Transf (AST/SGOT) 37 U/L (15-37) Alanine Aminotransferase (ALT/SGPT) 60 U/L (16-63) Alkaline Phosphatase 53 U/L (46-116) Total Protein 5.8 g/dL (6.4-8.2) Albumin 2.4 g/dL (3.4-5.0) Albumin/Globulin Ratio 0.7 (1.0-1.7) Impression . IMPRESSION: 1. Acute on chronic respiratory failure. 2. COVID-[address] revealing no evidence of pulmonary embolism. 4. Chronic obstructive pulmonary disease. 5. Other comorbidities as listed above. 6. Abnormal chest x-ray with diffuse bilateral infiltrates consistent with COVI D-19 viral pneumonia Plan . 06/22 1. Continue oxygen supplementation and Vapotherm., titrate fio2 as tolerated to keep sat 90% slowly improving 2. steroids. 3. remdesivir 4. Empiric antibiotics 5. lovenox for dvt prophylaxis increase to bid 6. pepcid for stress ulcer prophylaxis discussed w rn 06/21 1. Continue oxygen supplementation, titrate fio2 as tolerated to keep sat 90% slowly improving 2. steroids. 3. remdesivir 4. Empiric antibiotics 5. lovenox for dvt prophylaxis increase to bid 6. pepcid for stress ulcer prophylaxis discussed w rn PLAN: 1. Continue oxygen supplementation, titrate fio2 as tolerated 2. steroids. 3. remdesivir 4. Empiric antibiotics 5. lovenox for dvt prophylaxis increase to bid 6. pepcid for stress ulcer prophylaxis discussed w WU Alvarado MD Jun 22, 2021 10:27
[2021-06-22] MEDS ORDERED: TERA5CAP3 PO (11:22)
[2021-06-22] MEDS ORDERED: HYDR12.575 PO (11:27)
[2021-06-22] MEDS ORDERED: LOSA100T14 PO (11:27)
[2021-06-22] MEDS ORDERED: OMEP20TA8 PO (11:27)
[2021-06-22] MEDS ORDERED: ATOR10TA60 PO (11:29)
--- NOTE | 2021-06-22 14:33 | NUR ---
SS following up with discharge planning. SS reviewed pt chart and discussed with pt RN. Pt is currently on Vapotherm at 30 liters and 75%. COVID19 positive. Pt on IV Decadron. SS will continue to follow for discharge planning.
[2021-06-23] VITALS (24 sets, daily range): BP systolic 100–136; BP diastolic 58–88
[2021-06-23 03:29] LABS: BASO % 0 % (0-3); EOS # 0.3 x10^3/uL (0.0-0.7); EOS % 1 % (0-3); HEMATOCRIT 40.3 % (39.0-53.0); HEMOGLOBIN 13.7 g/dL (13.0-17.5); LYMPH # 1.5 x10^3/uL (1.0-4.8); LYMPH % 8 % (24-48); MEAN CORPUSCULAR HEMOGLOBIN 32 pg (25-35); MEAN CORPUSCULAR HGB CONC 34 g/dL (31-37); MEAN CORPUSCULAR VOLUME 95 fL (79-100); MONO # 0.7 x10^3/uL (0.0-1.1); MONO % 4 % (0-9); NEUT # 17.1 x10^3/uL (1.8-7.7); NEUT % 87 % (31-73); PLATELET COUNT 328 x10^3/uL (140-400); RED BLOOD COUNT 4.25 x10^6/uL (4.30-5.70); RED CELL DISTRIBUTION WIDTH 12.2 % (11.5-14.5); WHITE BLOOD COUNT 19.6 x10^3/uL (4.0-11.0)
[2021-06-23 03:49] LABS: ALBUMIN 2.3 g/dL (3.4-5.0); ALBUMIN/GLOBULIN RATIO 0.7 (1.0-1.7); CALCIUM 7.7 mg/dL (8.5-10.1); CREATININE 0.9 mg/dL (0.7-1.3); GFR 83.9; POTASSIUM 4.2 mmol/L (3.5-5.1); TOTAL BILIRUBIN 0.5 mg/dL (0.2-1.0); TOTAL PROTEIN 5.6 g/dL (6.4-8.2)
[2021-06-23] MEDS: STERILE WATER for RESP 2,000 ML BAG. INH PRN (08:06)
[2021-06-23] MEDS: LACTOBACILLUS RHAMNOSUS GG 1 CAPSULE. PO SCH ×2 (08:10→21:22)
[2021-06-23] MEDS: ENOXAPARIN 40 MG/0.4 ML SYRINGE. SQ SCH ×2 (08:10→21:22)
[2021-06-23] MEDS: ZINC SULFATE 220 MG CAPSULE. PO SCH (08:10)
[2021-06-23] MEDS: FAMOTIDINE 20 MG TABLET. PO PRN (08:10)
--- NOTE | 2021-06-23 08:10 | PDOC ---
[employer] PROGRESS NOTE Date of Service DOS: DATE: 06/23/21 TIME: 08:10 Chief Complaint Chief Complaint Bandemia COVID-19 -status post tocilizumab 06/18/2021 he completed remdesivir. 10 days of steroids completed 06/22/2021. Hypoxemia requiring supp O2 Renal insufficiency Sepsis Acute respiratory failure with hypoxia with COVID-19 complicated by community- acquired pneumonia off antibiotics. Acute lung injury with bilateral infiltrates pneumonia Hyponatremia, acute illness, dry SHADY, acute vasomotor nephropathy Hypercalcemia HTN HLD GERD History of Present Illness History of Present Illness Afebrile overnight. On Vapotherm 25 L/min 70% FiO2 30 saturations 97%. Stools have firmed up. Good appetite. WBC trended upward. CC time 32 minutes 06/22: WBC 16.4. On Vapotherm 30 L/min 80% FiO2. Saturations 91%. He removed his Vapotherm with O2 sats down to the 50s. Having some loose stools. Increased appetite. 06/21: Patient evaluated examined at bedside. Still requiring Vapotherm in the ICU. Continue current COVID treatments. Wean oxygen as tolerated. 06/20: Patient evaluated examined at bedside. Requiring Vapotherm still saturations low 90s. He will need ICU admission. Continue COVID treatment. Plan of care discussed with bedside RN. 06/19: Patient evaluated and examined at bedside. He was on 15 L nonrebreather and Vapotherm however Vapotherm was not even in his nose and he was saturating well. I woke him sleep he had no complaints. Continue current plan. 06/18: Patient seen and examined. He is on 100% Non-rebreather mask. 12L O2 per NC 06/17: Patient seen and examined at bedside. Patient reports feeling about the same as yesterday. 06/16: Patient seen and examined. He is on 100% rebreather. He is getting day 4 remdesivir today at 17 06/15: Patient seen and examined. He is currently on a 100% nonrebreather HPI: Mr Jasso is a 64-year-old man with past medical history HTN, HLD, GERD, who presents to the ER with complaints of shortness of breath since day before admission He reports "cold-like symptoms "over the past 8 days prior to presentation. He went to an urgent care, was diagnosed with COVID-19 on 06/12/2021. He was sent home with a a home oxygen monitor and was told to come back to the ED if his O2 saturation dropped below 90. At home his oxygen saturations were reading in the 80s, so he came to the ER for further evaluation. Labs on admission showed WBC 14.3, sodium 129, BUN 31, creatinine 1.5, CBG 164, AST 45, ALT 47. CTA chest showed no evidence of pulmonary embolus, but patchy groundglass opacities throughout both lungs consistent with COVID-19 pneumonitis, mild mediastinal lymphadenopathy, and coronary artery calcifications. He has not been vaccinated against COVID-19. He was given IV fluids, Rocephin, and doxycycline in the ED. Admitted patient for further medical management. Vitals/I&O Vitals/I&O: Vital Signs Date Time Temp Pulse Resp B/P (MAP) Pulse Ox O2 Delivery O2 Flow Rate FiO2 06/23/21 07:00 82 22 116/70 (85) 95 Vapotherm 25.0 06/23/21 04:00 98.3 98.3 I & O 06/22/21 06/22/21 06/23/21 15:00 23:00 07:00 Intake Total 350 ml 200 ml Output Total 300 ml 545 ml 265 ml Balance 50 ml -345 ml -265 ml Physical Exam Physical Exam: Visual exam done with COVID pandemic GENERAL: Alert, awake male, on Vapotherm, appears comfortable. HEART: S1, S2 ABDOMEN: nondistended. DERMATOLOGIC: no generalized rash. NEUROLOGIC: Alert and awake General: Alert, Oriented X3, Cooperative, mild distress Heart: Regular rate, Normal S1 Abdomen: Normal bowel sounds Extremities: No clubbing, No edema Skin: No breakdown Labs Labs: Laboratory Tests Test 06/23/21 03:15 White Blood Count 19.6 x10^3/uL (4.0-11.0) Red Blood Count 4.25 x10^6/uL (4.30-5.70) Hemoglobin 13.7 g/dL (13.0-17.5) Hematocrit 40.3 % (39.0-53.0) Mean Corpuscular Volume 95 fL (79-100) Mean Corpuscular Hemoglobin 32 pg (25-35) Mean Corpuscular Hemoglobin Concent 34 g/dL (31-37) Red Cell Distribution Width 12.2 % (11.5-14.5) Platelet Count 328 x10^3/uL (140-400) Neutrophils (%) (Auto) 87 % (31-73) Lymphocytes (%) (Auto) 8 % (24-48) Monocytes (%) (Auto) 4 % (0-9) Eosinophils (%) (Auto) 1 % (0-3) Basophils (%) (Auto) 0 % (0-3) Neutrophils # (Auto) 17.1 x10^3/uL (1.8-7.7) Lymphocytes # (Auto) 1.5 x10^3/uL (1.0-4.8) Monocytes # (Auto) 0.7 x10^3/uL (0.0-1.1) Eosinophils # (Auto) 0.3 x10^3/uL (0.0-0.7) Basophils # (Auto) 0.0 x10^3/uL (0.0-0.2) Sodium Level 137 mmol/L (136-145) Potassium Level 4.2 mmol/L (3.5-5.1) Chloride Level 103 mmol/L (98-107) Carbon Dioxide Level 26 mmol/L (21-32) Anion Gap 8 (6-14) Blood Urea Nitrogen 25 mg/dL (8-26) Creatinine 0.9 mg/dL (0.7-1.3) Estimated GFR (Cockcroft-Gault) 83.9 BUN/Creatinine Ratio 28 (6-20) Glucose Level 111 mg/dL (70-99) Calcium Level 7.7 mg/dL (8.5-10.1) Total Bilirubin 0.5 mg/dL (0.2-1.0) Aspartate Amino Transf (AST/SGOT) 35 U/L (15-37) Alanine Aminotransferase (ALT/SGPT) 77 U/L (16-63) Alkaline Phosphatase 53 U/L (46-116) Total Protein 5.6 g/dL (6.4-8.2) Albumin 2.3 g/dL (3.4-5.0) Albumin/Globulin Ratio 0.7 (1.0-1.7) Assessment and Plan Assessmemt and Plan Problems Medical Problems: (1) Bandemia Status: Acute (2) COVID-19 Status: Acute (3) Hypoxemia requiring supplemental oxygen Status: Acute (4) Renal insufficiency Status: Acute (5) Sepsis Status: Acute Comment Review of Relevant I have reviewed the following items alessia (where applicable) has been applied. Justifications for Admission General Conditions Other justification for admit: Respiratory failure with hypoxia, COVID-19 Other Justification MARKUS BENNETT MD Jun 23, 2021 08:10
[2021-06-23] MEDS: ASCORBIC ACID 500 MG TABLET PO SCH ×2 (08:11→21:22)
--- NOTE | 2021-06-23 11:53 | PDOC ---
PULMONARY PROGRESS NOTES DATE: 06/23/21 TIME: 11:52 Subjective on vapotherm 30 lpm 70% fio2 off nrb mask feels better denies cough cp Vitals Vital Signs Date Time Temp Pulse Resp B/P (MAP) Pulse Ox O2 Delivery O2 Flow Rate FiO2 06/23/21 11:44 97 VapoTherm 25.0 06/23/21 11:00 94 22 136/88 (104) 06/23/21 08:00 98.5 98.5 Comments no distress nc at rrr no accessory muscle use no paradoixcal abd motion no rash Labs Laboratory Tests Test 06/22/21 04:35 06/23/21 03:15 White Blood Count 16.4 x10^3/uL (4.0-11.0) 19.6 x10^3/uL (4.0-11.0) Red Blood Count 4.38 x10^6/uL (4.30-5.70) 4.25 x10^6/uL (4.30-5.70) Hemoglobin 14.0 g/dL (13.0-17.5) 13.7 g/dL (13.0-17.5) Hematocrit 41.7 % (39.0-53.0) 40.3 % (39.0-53.0) Mean Corpuscular Volume 95 fL (79-100) 95 fL (79-100) Mean Corpuscular Hemoglobin 32 pg (25-35) 32 pg (25-35) Mean Corpuscular Hemoglobin Concent 34 g/dL (31-37) 34 g/dL (31-37) Red Cell Distribution Width 12.7 % (11.5-14.5) 12.2 % (11.5-14.5) Platelet Count 374 x10^3/uL (140-400) 328 x10^3/uL (140-400) Neutrophils (%) (Auto) 85 % (31-73) 87 % (31-73) Lymphocytes (%) (Auto) 10 % (24-48) 8 % (24-48) Monocytes (%) (Auto) 3 % (0-9) 4 % (0-9) Eosinophils (%) (Auto) 2 % (0-3) 1 % (0-3) Basophils (%) (Auto) 0 % (0-3) 0 % (0-3) Neutrophils # (Auto) 13.8 x10^3/uL (1.8-7.7) 17.1 x10^3/uL (1.8-7.7) Lymphocytes # (Auto) 1.7 x10^3/uL (1.0-4.8) 1.5 x10^3/uL (1.0-4.8) Monocytes # (Auto) 0.5 x10^3/uL (0.0-1.1) 0.7 x10^3/uL (0.0-1.1) Eosinophils # (Auto) 0.3 x10^3/uL (0.0-0.7) 0.3 x10^3/uL (0.0-0.7) Basophils # (Auto) 0.0 x10^3/uL (0.0-0.2) 0.0 x10^3/uL (0.0-0.2) Sodium Level 135 mmol/L (136-145) 137 mmol/L (136-145) Potassium Level 4.3 mmol/L (3.5-5.1) 4.2 mmol/L (3.5-5.1) Chloride Level 102 mmol/L (98-107) 103 mmol/L (98-107) Carbon Dioxide Level 26 mmol/L (21-32) 26 mmol/L (21-32) Anion Gap 7 (6-14) 8 (6-14) Blood Urea Nitrogen 24 mg/dL (8-26) 25 mg/dL (8-26) Creatinine 0.9 mg/dL (0.7-1.3) 0.9 mg/dL (0.7-1.3) Estimated GFR (Cockcroft-Gault) 83.9 83.9 BUN/Creatinine Ratio 27 (6-20) 28 (6-20) Glucose Level 84 mg/dL (70-99) 111 mg/dL (70-99) Calcium Level 7.8 mg/dL (8.5-10.1) 7.7 mg/dL (8.5-10.1) Total Bilirubin 1.0 mg/dL (0.2-1.0) 0.5 mg/dL (0.2-1.0) Aspartate Amino Transf (AST/SGOT) 37 U/L (15-37) 35 U/L (15-37) Alanine Aminotransferase (ALT/SGPT) 60 U/L (16-63) 77 U/L (16-63) Alkaline Phosphatase 53 U/L (46-116) 53 U/L (46-116) Total Protein 5.8 g/dL (6.4-8.2) 5.6 g/dL (6.4-8.2) Albumin 2.4 g/dL (3.4-5.0) 2.3 g/dL (3.4-5.0) Albumin/Globulin Ratio 0.7 (1.0-1.7) 0.7 (1.0-1.7) Laboratory Tests Test 06/23/21 03:15 White Blood Count 19.6 x10^3/uL (4.0-11.0) Red Blood Count 4.25 x10^6/uL (4.30-5.70) Hemoglobin 13.7 g/dL (13.0-17.5) Hematocrit 40.3 % (39.0-53.0) Mean Corpuscular Volume 95 fL (79-100) Mean Corpuscular Hemoglobin 32 pg (25-35) Mean Corpuscular Hemoglobin Concent 34 g/dL (31-37) Red Cell Distribution Width 12.2 % (11.5-14.5) Platelet Count 328 x10^3/uL (140-400) Neutrophils (%) (Auto) 87 % (31-73) Lymphocytes (%) (Auto) 8 % (24-48) Monocytes (%) (Auto) 4 % (0-9) Eosinophils (%) (Auto) 1 % (0-3) Basophils (%) (Auto) 0 % (0-3) Neutrophils # (Auto) 17.1 x10^3/uL (1.8-7.7) Lymphocytes # (Auto) 1.5 x10^3/uL (1.0-4.8) Monocytes # (Auto) 0.7 x10^3/uL (0.0-1.1) Eosinophils # (Auto) 0.3 x10^3/uL (0.0-0.7) Basophils # (Auto) 0.0 x10^3/uL (0.0-0.2) Sodium Level 137 mmol/L (136-145) Potassium Level 4.2 mmol/L (3.5-5.1) Chloride Level 103 mmol/L (98-107) Carbon Dioxide Level 26 mmol/L (21-32) Anion Gap 8 (6-14) Blood Urea Nitrogen 25 mg/dL (8-26) Creatinine 0.9 mg/dL (0.7-1.3) Estimated GFR (Cockcroft-Gault) 83.9 BUN/Creatinine Ratio 28 (6-20) Glucose Level 111 mg/dL (70-99) Calcium Level 7.7 mg/dL (8.5-10.1) Total Bilirubin 0.5 mg/dL (0.2-1.0) Aspartate Amino Transf (AST/SGOT) 35 U/L (15-37) Alanine Aminotransferase (ALT/SGPT) 77 U/L (16-63) Alkaline Phosphatase 53 U/L (46-116) Total Protein 5.6 g/dL (6.4-8.2) Albumin 2.3 g/dL (3.4-5.0) Albumin/Globulin Ratio 0.7 (1.0-1.7) Medications Active Scripts Medications Dose Route/Sig Max Daily Dose Days Date Category Dose Instructions Atorvastatin Calcium 10 Mg Tablet 1 Tab PO DAILY 06/22/21 Reported Losartan Potassium 100 Mg Tablet 100 Mg PO DAILY 06/22/21 Reported Hydrochlorothiazide Capsule (Hydrochlorothiazide) 12.5 Mg Capsule 12.5 Mg PO DAILY 06/22/21 Reported Omeprazole 20 Mg Tablet. 1 Tab PO DAILY 06/22/21 Reported Take 30 minutes before meal Terazosin Hcl 5 Mg Capsule 1 Cap PO QHS PRN 06/22/21 Reported Impression . IMPRESSION: 1. Acute on chronic respiratory failure. 2. COVID-[address] revealing no evidence of pulmonary embolism. 4. Chronic obstructive pulmonary disease. 5. Other comorbidities as listed above. 6. Abnormal chest x-ray with diffuse bilateral infiltrates consistent with COVID-19 viral pneumonia Plan . 06/23 1. Continue oxygen supplementation and Vapotherm., titrate fio2 as tolerated to keep sat 90% slowly improving 2. steroids. Completed full course 3. remdesivir 4. Empiric antibiotics 5. lovenox for dvt prophylaxis increase to bid 6. pepcid for stress ulcer prophylaxis discussed w rn and Dr. Manning 06/22 1. Continue oxygen supplementation and Vapotherm., titrate fio2 as tolerated to keep sat 90% slowly improving 2. steroids. 3. remdesivir 4. Empiric antibiotics 5. lovenox for dvt prophylaxis increase to bid 6. pepcid for stress ulcer prophylaxis discussed michael hensley 06/21 1. Continue oxygen supplementation, titrate fio2 as tolerated to keep sat 90% slowly improving 2. steroids. 3. remdesivir 4. Empiric antibiotics 5. lovenox for dvt prophylaxis increase to bid 6. pepcid for stress ulcer prophylaxis discussed michael hensley PLAN: 1. Continue oxygen supplementation, titrate fio2 as tolerated 2. steroids. 3. remdesivir 4. Empiric antibiotics 5. lovenox for dvt prophylaxis increase to bid 6. pepcid for stress ulcer prophylaxis discussed w WU Alvarado MD Jun 23, 2021 11:53
--- NOTE | 2021-06-23 16:24 | NUR ---
SS following up with discharge planning. SS reviewed pt chart and discussed with pt RN. Pt is currently on Vapotherm at 25 liters and 70%. COVID19 positive. SS will continue to follow for discharge planning.
[2021-06-24] VITALS (15 sets, daily range): BP systolic 91–127; BP diastolic 53–73
[2021-06-24 05:58] LABS: BASO % 0 % (0-3); EOS # 0.3 x10^3/uL (0.0-0.7); EOS % 2 % (0-3); HEMATOCRIT 42.1 % (39.0-53.0); HEMOGLOBIN 14.1 g/dL (13.0-17.5); LYMPH # 1.8 x10^3/uL (1.0-4.8); LYMPH % 10 % (24-48); MEAN CORPUSCULAR HEMOGLOBIN 32 pg (25-35); MEAN CORPUSCULAR HGB CONC 34 g/dL (31-37); MEAN CORPUSCULAR VOLUME 95 fL (79-100); MONO # 0.6 x10^3/uL (0.0-1.1); MONO % 3 % (0-9); NEUT # 15.2 x10^3/uL (1.8-7.7); NEUT % 85 % (31-73); PLATELET COUNT 344 x10^3/uL (140-400); RED BLOOD COUNT 4.41 x10^6/uL (4.30-5.70); RED CELL DISTRIBUTION WIDTH 12.5 % (11.5-14.5)
[2021-06-24 06:28] LABS: ALBUMIN 2.4 g/dL (3.4-5.0); ALBUMIN/GLOBULIN RATIO 0.7 (1.0-1.7); CALCIUM 7.8 mg/dL (8.5-10.1); CREATININE 0.9 mg/dL (0.7-1.3); GFR 83.9; POTASSIUM 4.7 mmol/L (3.5-5.1); TOTAL BILIRUBIN 0.6 mg/dL (0.2-1.0); TOTAL PROTEIN 5.8 g/dL (6.4-8.2)
--- NOTE | 2021-06-24 07:53 | PDOC ---
[employer] PROGRESS NOTE Date of Service DOS: DATE: 06/24/21 TIME: 07:52 Chief Complaint Chief Complaint Bandemia COVID-19 -status post tocilizumab 06/18/2021 he completed remdesivir. 10 days of steroids completed 06/22/2021. Hypoxemia requiring supp O2 Renal insufficiency Sepsis Acute respiratory failure with hypoxia with COVID-19 complicated by community- acquired pneumonia off antibiotics. Acute lung injury with bilateral infiltrates pneumonia Hyponatremia, acute illness, dry SHADY, acute vasomotor nephropathy Hypercalcemia HTN HLD GERD History of Present Illness History of Present Illness Afebrile overnight. On Vapotherm 20 L/min 55% FiO2 with saturations 95%. Another solid bowel movement appetite is stable. WBC 18. ALT and AST trending upward minimally. He has if he still contagious and when he can get vaccinated. Overall he is very weak today. CC time 30 minutes 06/23: Afebrile overnight. On Vapotherm 25 L/min 70% FiO2 30 saturations 97%. Stools have firmed up. Good appetite. WBC trended upward. 06/22: WBC 16.4. On Vapotherm 30 L/min 80% FiO2. Saturations 91%. He removed his Vapotherm with O2 sats down to the 50s. Having some loose stools. Increased appetite. 06/21: Patient evaluated examined at bedside. Still requiring Vapotherm in the ICU. Continue current COVID treatments. Wean oxygen as tolerated. 06/20: Patient evaluated examined at bedside. Requiring Vapotherm still saturations low 90s. He will need ICU admission. Continue COVID treatment. Plan of care discussed with bedside RN. 06/19: Patient evaluated and examined at bedside. He was on 15 L nonrebreather and Vapotherm however Vapotherm was not even in his nose and he was saturating well. I woke him sleep he had no complaints. Continue current plan. 06/18: Patient seen and examined. He is on 100% Non-rebreather mask. 12L O2 per NC 06/17: Patient seen and examined at bedside. Patient reports feeling about the same as yesterday. 06/16: Patient seen and examined. He is on 100% rebreather. He is getting day 4 remdesivir today at 17 06/15: Patient seen and examined. He is currently on a 100% nonrebreather HPI: Mr Jasso is a 64-year-old man with past medical history HTN, HLD, GERD, who presents to the ER with complaints of shortness of breath since day before admission He reports "cold-like symptoms "over the past 8 days prior to presentation. He went to an urgent care, was diagnosed with COVID-19 on 06/12/2021. He was sent home with a a home oxygen monitor and was told to come back to the ED if his O2 saturation dropped below 90. At home his oxygen saturations were reading in the 80s, so he came to the ER for further evaluation. Labs on admission showed WBC 14.3, sodium 129, BUN 31, creatinine 1.5, CBG 164, AST 45, ALT 47. CTA chest showed no evidence of pulmonary embolus, but patchy groundglass opacities throughout both lungs consistent with COVID-19 pneumonitis, mild mediastinal lymphadenopathy, and coronary artery calcifications. He has not been vaccinated against COVID-19. He was given IV fluids, Rocephin, and doxycycline in the ED. Admitted patient for further medical management. Vitals/I&O Vitals/I&O: Vital Signs Date Time Temp Pulse Resp B/P (MAP) Pulse Ox O2 Delivery O2 Flow Rate FiO2 06/24/21 07:25 98 VapoTherm 20.0 06/24/21 06:00 80 20 103/64 (77) 06/24/21 04:00 97.6 97.6 I & O 06/23/21 06/23/21 06/24/21 15:00 23:00 07:00 Intake Total 500 ml Output Total 300 ml 345 ml 325 ml Balance 200 ml -345 ml -325 ml Physical Exam Physical Exam: Visual exam done with COVID pandemic GENERAL: Alert, awake male, on Vapotherm, appears comfortable. HEART: S1, S2 ABDOMEN: nondistended. DERMATOLOGIC: no generalized rash. NEUROLOGIC: Alert and awake General: Alert, Oriented X3, Cooperative, mild distress Heart: Regular rate, Normal S1 Abdomen: Normal bowel sounds Extremities: No clubbing, No edema Skin: No breakdown Labs Labs: Laboratory Tests Test 06/24/21 04:08 White Blood Count 18.0 x10^3/uL (4.0-11.0) Red Blood Count 4.41 x10^6/uL (4.30-5.70) Hemoglobin 14.1 g/dL (13.0-17.5) Hematocrit 42.1 % (39.0-53.0) Mean Corpuscular Volume 95 fL (79-100) Mean Corpuscular Hemoglobin 32 pg (25-35) Mean Corpuscular Hemoglobin Concent 34 g/dL (31-37) Red Cell Distribution Width 12.5 % (11.5-14.5) Platelet Count 344 x10^3/uL (140-400) Neutrophils (%) (Auto) 85 % (31-73) Lymphocytes (%) (Auto) 10 % (24-48) Monocytes (%) (Auto) 3 % (0-9) Eosinophils (%) (Auto) 2 % (0-3) Basophils (%) (Auto) 0 % (0-3) Neutrophils # (Auto) 15.2 x10^3/uL (1.8-7.7) Lymphocytes # (Auto) 1.8 x10^3/uL (1.0-4.8) Monocytes # (Auto) 0.6 x10^3/uL (0.0-1.1) Eosinophils # (Auto) 0.3 x10^3/uL (0.0-0.7) Basophils # (Auto) 0.0 x10^3/uL (0.0-0.2) Sodium Level 134 mmol/L (136-145) Potassium Level 4.7 mmol/L (3.5-5.1) Chloride Level 100 mmol/L (98-107) Carbon Dioxide Level 29 mmol/L (21-32) Anion Gap 5 (6-14) Blood Urea Nitrogen 22 mg/dL (8-26) Creatinine 0.9 mg/dL (0.7-1.3) Estimated GFR (Cockcroft-Gault) 83.9 BUN/Creatinine Ratio 24 (6-20) Glucose Level 83 mg/dL (70-99) Calcium Level 7.8 mg/dL (8.5-10.1) Total Bilirubin 0.6 mg/dL (0.2-1.0) Aspartate Amino Transf (AST/SGOT) 49 U/L (15-37) Alanine Aminotransferase (ALT/SGPT) 114 U/L (16-63) Alkaline Phosphatase 57 U/L (46-116) Total Protein 5.8 g/dL (6.4-8.2) Albumin 2.4 g/dL (3.4-5.0) Albumin/Globulin Ratio 0.7 (1.0-1.7) Assessment and Plan Assessmemt and Plan Problems Medical Problems: (1) Bandemia Status: Acute (2) COVID-19 Status: Acute (3) Hypoxemia requiring supplemental oxygen Status: Acute (4) Renal insufficiency Status: Acute (5) Sepsis Status: Acute Comment Review of Relevant I have reviewed the following items alessia (where applicable) has been applied. Justifications for Admission General Conditions Other justification for admit: Respiratory failure with hypoxia, COVID-19 Other Justification MARKUS BENNETT MD Jun 24, 2021 07:53
[2021-06-24] MEDS ORDERED: DEXAMETHASONE 1 MG TABLET PO SCH (08:00)
--- NOTE | 2021-06-24 08:12 | PDOC ---
PULMONARY PROGRESS NOTES DATE: 06/24/21 TIME: 08:08 Subjective Pt. remains on vapotherm 55% and 20L afebrile no increased SOA or cough Vitals Vital Signs Date Time Temp Pulse Resp B/P (MAP) Pulse Ox O2 Delivery O2 Flow Rate FiO2 06/24/21 07:25 98 VapoTherm 20.0 06/24/21 07:00 82 20 99/58 (72) 06/24/21 04:00 97.6 97.6 Comments no distress nc at rrr no accessory muscle use no paradoixcal abd motion no rash Labs Laboratory Tests Test 06/23/21 03:15 06/24/21 04:08 White Blood Count 19.6 x10^3/uL (4.0-11.0) 18.0 x10^3/uL (4.0-11.0) Red Blood Count 4.25 x10^6/uL (4.30-5.70) 4.41 x10^6/uL (4.30-5.70) Hemoglobin 13.7 g/dL (13.0-17.5) 14.1 g/dL (13.0-17.5) Hematocrit 40.3 % (39.0-53.0) 42.1 % (39.0-53.0) Mean Corpuscular Volume 95 fL (79-100) 95 fL (79-100) Mean Corpuscular Hemoglobin 32 pg (25-35) 32 pg (25-35) Mean Corpuscular Hemoglobin Concent 34 g/dL (31-37) 34 g/dL (31-37) Red Cell Distribution Width 12.2 % (11.5-14.5) 12.5 % (11.5-14.5) Platelet Count 328 x10^3/uL (140-400) 344 x10^3/uL (140-400) Neutrophils (%) (Auto) 87 % (31-73) 85 % (31-73) Lymphocytes (%) (Auto) 8 % (24-48) 10 % (24-48) Monocytes (%) (Auto) 4 % (0-9) 3 % (0-9) Eosinophils (%) (Auto) 1 % (0-3) 2 % (0-3) Basophils (%) (Auto) 0 % (0-3) 0 % (0-3) Neutrophils # (Auto) 17.1 x10^3/uL (1.8-7.7) 15.2 x10^3/uL (1.8-7.7) Lymphocytes # (Auto) 1.5 x10^3/uL (1.0-4.8) 1.8 x10^3/uL (1.0-4.8) Monocytes # (Auto) 0.7 x10^3/uL (0.0-1.1) 0.6 x10^3/uL (0.0-1.1) Eosinophils # (Auto) 0.3 x10^3/uL (0.0-0.7) 0.3 x10^3/uL (0.0-0.7) Basophils # (Auto) 0.0 x10^3/uL (0.0-0.2) 0.0 x10^3/uL (0.0-0.2) Sodium Level 137 mmol/L (136-145) 134 mmol/L (136-145) Potassium Level 4.2 mmol/L (3.5-5.1) 4.7 mmol/L (3.5-5.1) Chloride Level 103 mmol/L (98-107) 100 mmol/L (98-107) Carbon Dioxide Level 26 mmol/L (21-32) 29 mmol/L (21-32) Anion Gap 8 (6-14) 5 (6-14) Blood Urea Nitrogen 25 mg/dL (8-26) 22 mg/dL (8-26) Creatinine 0.9 mg/dL (0.7-1.3) 0.9 mg/dL (0.7-1.3) Estimated GFR (Cockcroft-Gault) 83.9 83.9 BUN/Creatinine Ratio 28 (6-20) 24 (6-20) Glucose Level 111 mg/dL (70-99) 83 mg/dL (70-99) Calcium Level 7.7 mg/dL (8.5-10.1) 7.8 mg/dL (8.5-10.1) Total Bilirubin 0.5 mg/dL (0.2-1.0) 0.6 mg/dL (0.2-1.0) Aspartate Amino Transf (AST/SGOT) 35 U/L (15-37) 49 U/L (15-37) Alanine Aminotransferase (ALT/SGPT) 77 U/L (16-63) 114 U/L (16-63) Alkaline Phosphatase 53 U/L (46-116) 57 U/L (46-116) Total Protein 5.6 g/dL (6.4-8.2) 5.8 g/dL (6.4-8.2) Albumin 2.3 g/dL (3.4-5.0) 2.4 g/dL (3.4-5.0) Albumin/Globulin Ratio 0.7 (1.0-1.7) 0.7 (1.0-1.7) Laboratory Tests Test 06/24/21 04:08 White Blood Count 18.0 x10^3/uL (4.0-11.0) Red Blood Count 4.41 x10^6/uL (4.30-5.70) Hemoglobin 14.1 g/dL (13.0-17.5) Hematocrit 42.1 % (39.0-53.0) Mean Corpuscular Volume 95 fL (79-100) Mean Corpuscular Hemoglobin 32 pg (25-35) Mean Corpuscular Hemoglobin Concent 34 g/dL (31-37) Red Cell Distribution Width 12.5 % (11.5-14.5) Platelet Count 344 x10^3/uL (140-400) Neutrophils (%) (Auto) 85 % (31-73) Lymphocytes (%) (Auto) 10 % (24-48) Monocytes (%) (Auto) 3 % (0-9) Eosinophils (%) (Auto) 2 % (0-3) Basophils (%) (Auto) 0 % (0-3) Neutrophils # (Auto) 15.2 x10^3/uL (1.8-7.7) Lymphocytes # (Auto) 1.8 x10^3/uL (1.0-4.8) Monocytes # (Auto) 0.6 x10^3/uL (0.0-1.1) Eosinophils # (Auto) 0.3 x10^3/uL (0.0-0.7) Basophils # (Auto) 0.0 x10^3/uL (0.0-0.2) Sodium Level 134 mmol/L (136-145) Potassium Level 4.7 mmol/L (3.5-5.1) Chloride Level 100 mmol/L (98-107) Carbon Dioxide Level 29 mmol/L (21-32) Anion Gap 5 (6-14) Blood Urea Nitrogen 22 mg/dL (8-26) Creatinine 0.9 mg/dL (0.7-1.3) Estimated GFR (Cockcroft-Gault) 83.9 BUN/Creatinine Ratio 24 (6-20) Glucose Level 83 mg/dL (70-99) Calcium Level 7.8 mg/dL (8.5-10.1) Total Bilirubin 0.6 mg/dL (0.2-1.0) Aspartate Amino Transf (AST/SGOT) 49 U/L (15-37) Alanine Aminotransferase (ALT/SGPT) 114 U/L (16-63) Alkaline Phosphatase 57 U/L (46-116) Total Protein 5.8 g/dL (6.4-8.2) Albumin 2.4 g/dL (3.4-5.0) Albumin/Globulin Ratio 0.7 (1.0-1.7) Medications Active Scripts Medications Dose Route/Sig Max Daily Dose Days Date Category Dose Instructions Atorvastatin Calcium 10 Mg Tablet 1 Tab PO DAILY 06/22/21 Reported Losartan Potassium 100 Mg Tablet 100 Mg PO DAILY 06/22/21 Reported Hydrochlorothiazide Capsule (Hydrochlorothiazide) 12.5 Mg Capsule 12.5 Mg PO DAILY 06/22/21 Reported Omeprazole 20 Mg Tablet.dr 1 Tab PO DAILY 06/22/21 Reported Take 30 minutes before meal Terazosin Hcl 5 Mg Capsule 1 Cap PO QHS PRN 06/22/21 Reported Impression . IMPRESSION: 1. Acute on chronic respiratory failure--slowly improving 2. COVID-[address] revealing no evidence of pulmonary embolism. 4. Chronic obstructive pulmonary disease. 5. Other comorbidities as listed above. 6. Abnormal chest x-ray with diffuse bilateral infiltrates consistent with COVID-19 viral pneumonia Plan . 06/24/21 1. Continue oxygen supplementation and Vapotherm., titrate fio2 as tolerated to keep sat 90%, now on 55% and 20 liters, will try high flow NC today 2. steroids. Completed full course 3. S/P remdesivir and tocilizumab 4. completed course of antibiotics 5. lovenox for dvt prophylaxis increase to bid 6. pepcid for stress ulcer prophylaxis D/W RN and RT Pt. is Full CODE Pt. can transfer out of ICU if tolerate High flow NC 06/23 1. Continue oxygen supplementation and Vapotherm., titrate fio2 as tolerated to keep sat 90% slowly improving 2. steroids. Completed full course 3. remdesivir 4. Empiric antibiotics 5. lovenox for dvt prophylaxis increase to bid 6. pepcid for stress ulcer prophylaxis discussed w ayden and Dr. Manning 06/22 1. Continue oxygen supplementation and Vapotherm., titrate fio2 as tolerated to keep sat 90% slowly improving 2. steroids. 3. remdesivir 4. Empiric antibiotics 5. lovenox for dvt prophylaxis increase to bid 6. pepcid for stress ulcer prophylaxis discussed WU Cooper rn, MD Jun 24, 2021 08:12
[2021-06-24] MEDS: ENOXAPARIN 40 MG/0.4 ML SYRINGE. SQ SCH ×2 (08:46→20:52)
[2021-06-24] MEDS: ZINC SULFATE 220 MG CAPSULE. PO SCH (08:46)
[2021-06-24] MEDS: LACTOBACILLUS RHAMNOSUS GG 1 CAPSULE. PO SCH ×2 (08:46→20:52)
[2021-06-24] MEDS: ASCORBIC ACID 500 MG TABLET PO SCH ×2 (08:46→20:52)
--- NOTE | 2021-06-24 11:26 | NUR ---
SS following up with discharge planning. SS reviewed pt chart and discussed with pt RN. Pt now on high flow nasal canula at six liters. COVID19 positive. Pt downgraded and to transfer up today. PT/OT orders requested. SS will continue to follow for discharge planning.
--- NOTE | 2021-06-24 16:23 | PDOC ---
Infectious Disease Note Subjective Subjective pt is feeling good, on 02 6 lit ROS ROS no n/v/d/fever Vital Sign Vital Signs Vital Signs Date Time Temp Pulse Resp B/P (MAP) Pulse Ox O2 Delivery O2 Flow Rate FiO2 06/24/21 15:00 97.2 105 26 122/73 (89) 95 High Flow Nasal Cannula 6.0 97.2 Physical Exam PHYSICAL EXAM GENERAL: Alert, awake male, appears comfortable. HEART: S1, S2 ABDOMEN: nondistended. DERMATOLOGIC: no generalized rash. NEUROLOGIC: Alert and awake Lungs clear skin nad Labs Lab Laboratory Tests Test 06/24/21 04:08 White Blood Count 18.0 x10^3/uL (4.0-11.0) Red Blood Count 4.41 x10^6/uL (4.30-5.70) Hemoglobin 14.1 g/dL (13.0-17.5) Hematocrit 42.1 % (39.0-53.0) Mean Corpuscular Volume 95 fL (79-100) Mean Corpuscular Hemoglobin 32 pg (25-35) Mean Corpuscular Hemoglobin Concent 34 g/dL (31-37) Red Cell Distribution Width 12.5 % (11.5-14.5) Platelet Count 344 x10^3/uL (140-400) Neutrophils (%) (Auto) 85 % (31-73) Lymphocytes (%) (Auto) 10 % (24-48) Monocytes (%) (Auto) 3 % (0-9) Eosinophils (%) (Auto) 2 % (0-3) Basophils (%) (Auto) 0 % (0-3) Neutrophils # (Auto) 15.2 x10^3/uL (1.8-7.7) Lymphocytes # (Auto) 1.8 x10^3/uL (1.0-4.8) Monocytes # (Auto) 0.6 x10^3/uL (0.0-1.1) Eosinophils # (Auto) 0.3 x10^3/uL (0.0-0.7) Basophils # (Auto) 0.0 x10^3/uL (0.0-0.2) Sodium Level 134 mmol/L (136-145) Potassium Level 4.7 mmol/L (3.5-5.1) Chloride Level 100 mmol/L (98-107) Carbon Dioxide Level 29 mmol/L (21-32) Anion Gap 5 (6-14) Blood Urea Nitrogen 22 mg/dL (8-26) Creatinine 0.9 mg/dL (0.7-1.3) Estimated GFR (Cockcroft-Gault) 83.9 BUN/Creatinine Ratio 24 (6-20) Glucose Level 83 mg/dL (70-99) Calcium Level 7.8 mg/dL (8.5-10.1) Total Bilirubin 0.6 mg/dL (0.2-1.0) Aspartate Amino Transf (AST/SGOT) 49 U/L (15-37) Alanine Aminotransferase (ALT/SGPT) 114 U/L (16-63) Alkaline Phosphatase 57 U/L (46-116) Total Protein 5.8 g/dL (6.4-8.2) Albumin 2.4 g/dL (3.4-5.0) Albumin/Globulin Ratio 0.7 (1.0-1.7) Objective Assessment 1. COVID-19 viral pneumonia. 2. Acute hypoxic respiratory failure, on Vapotherm. 3. Leukocytosis. 4. Lymphopenia and bandemia. 5. Acute kidney injury, improved. 6. Mild protein-calorie malnutrition. Plan Plan of Care Continue supportive care. Status post remdesivir and tocilizumab. on steroids per primary Monitor labs and cultures. Pulm team following ID will sign off .Call with any questoins or concerns JENNIFER HULL MD Jun 24, 2021 16:23
--- NOTE | 2021-06-24 16:33 | NUR ---
Patient transferred to room 508 on 6L HFNC. Patient tolerated move well and CIERRA Wellington met pt at bedside upon arrival. Pt connected to monitor prior to this RN leaving the room. Patient stated he will let his significant other know of transfer.
[2021-06-25 03:00] VITALS: BP 110/70
[2021-06-25 07:00] VITALS: BP 137/66
[2021-06-25 07:45] LABS: ALBUMIN 2.6 g/dL (3.4-5.0); ALBUMIN/GLOBULIN RATIO 0.7 (1.0-1.7); CALCIUM 8.3 mg/dL (8.5-10.1); CREATININE 0.9 mg/dL (0.7-1.3); GFR 83.9; POTASSIUM 4.6 mmol/L (3.5-5.1); TOTAL BILIRUBIN 0.7 mg/dL (0.2-1.0); TOTAL PROTEIN 6.2 g/dL (6.4-8.2)
[2021-06-25] MEDS: ENOXAPARIN 40 MG/0.4 ML SYRINGE. SQ SCH ×2 (08:41→20:34)
[2021-06-25] MEDS: LACTOBACILLUS RHAMNOSUS GG 1 CAPSULE. PO SCH ×2 (08:41→20:34)
[2021-06-25] MEDS: ZINC SULFATE 220 MG CAPSULE. PO SCH (08:41)
[2021-06-25] MEDS: ASCORBIC ACID 500 MG TABLET PO SCH ×2 (08:41→20:34)
[2021-06-25] MEDS: DEXAMETHASONE 4 MG TABLET PO SCH (08:42)
--- NOTE | 2021-06-25 08:45 | PDOC ---
PULMONARY PROGRESS NOTES DATE: 06/25/21 TIME: 08:44 Subjective Pt. is now down to 7 L of oxygen. Doing well. no increased SOA or cough Vitals Vital Signs Date Time Temp Pulse Resp B/P (MAP) Pulse Ox O2 Delivery O2 Flow Rate FiO2 06/25/21 07:00 98.7 99 18 137/66 (89) 96 Nasal Cannula 6.0 98.7 Comments no distress nc at rrr no accessory muscle use no paradoixcal abd motion no rash Labs Laboratory Tests Test 06/24/21 04:08 06/25/21 07:08 White Blood Count 18.0 x10^3/uL (4.0-11.0) Red Blood Count 4.41 x10^6/uL (4.30-5.70) Hemoglobin 14.1 g/dL (13.0-17.5) Hematocrit 42.1 % (39.0-53.0) Mean Corpuscular Volume 95 fL (79-100) Mean Corpuscular Hemoglobin 32 pg (25-35) Mean Corpuscular Hemoglobin Concent 34 g/dL (31-37) Red Cell Distribution Width 12.5 % (11.5-14.5) Platelet Count 344 x10^3/uL (140-400) Neutrophils (%) (Auto) 85 % (31-73) Lymphocytes (%) (Auto) 10 % (24-48) Monocytes (%) (Auto) 3 % (0-9) Eosinophils (%) (Auto) 2 % (0-3) Basophils (%) (Auto) 0 % (0-3) Neutrophils # (Auto) 15.2 x10^3/uL (1.8-7.7) Lymphocytes # (Auto) 1.8 x10^3/uL (1.0-4.8) Monocytes # (Auto) 0.6 x10^3/uL (0.0-1.1) Eosinophils # (Auto) 0.3 x10^3/uL (0.0-0.7) Basophils # (Auto) 0.0 x10^3/uL (0.0-0.2) Sodium Level 134 mmol/L (136-145) 133 mmol/L (136-145) Potassium Level 4.7 mmol/L (3.5-5.1) 4.6 mmol/L (3.5-5.1) Chloride Level 100 mmol/L (98-107) 101 mmol/L (98-107) Carbon Dioxide Level 29 mmol/L (21-32) 27 mmol/L (21-32) Anion Gap 5 (6-14) 5 (6-14) Blood Urea Nitrogen 22 mg/dL (8-26) 21 mg/dL (8-26) Creatinine 0.9 mg/dL (0.7-1.3) 0.9 mg/dL (0.7-1.3) Estimated GFR (Cockcroft-Gault) 83.9 83.9 BUN/Creatinine Ratio 24 (6-20) 23 (6-20) Glucose Level 83 mg/dL (70-99) 101 mg/dL (70-99) Calcium Level 7.8 mg/dL (8.5-10.1) 8.3 mg/dL (8.5-10.1) Total Bilirubin 0.6 mg/dL (0.2-1.0) 0.7 mg/dL (0.2-1.0) Aspartate Amino Transf (AST/SGOT) 49 U/L (15-37) 43 U/L (15-37) Alanine Aminotransferase (ALT/SGPT) 114 U/L (16-63) 123 U/L (16-63) Alkaline Phosphatase 57 U/L (46-116) 69 U/L (46-116) Total Protein 5.8 g/dL (6.4-8.2) 6.2 g/dL (6.4-8.2) Albumin 2.4 g/dL (3.4-5.0) 2.6 g/dL (3.4-5.0) Albumin/Globulin Ratio 0.7 (1.0-1.7) 0.7 (1.0-1.7) Laboratory Tests Test 06/25/21 07:08 Sodium Level 133 mmol/L (136-145) Potassium Level 4.6 mmol/L (3.5-5.1) Chloride Level 101 mmol/L (98-107) Carbon Dioxide Level 27 mmol/L (21-32) Anion Gap 5 (6-14) Blood Urea Nitrogen 21 mg/dL (8-26) Creatinine 0.9 mg/dL (0.7-1.3) Estimated GFR (Cockcroft-Gault) 83.9 BUN/Creatinine Ratio 23 (6-20) Glucose Level 101 mg/dL (70-99) Calcium Level 8.3 mg/dL (8.5-10.1) Total Bilirubin 0.7 mg/dL (0.2-1.0) Aspartate Amino Transf (AST/SGOT) 43 U/L (15-37) Alanine Aminotransferase (ALT/SGPT) 123 U/L (16-63) Alkaline Phosphatase 69 U/L (46-116) Total Protein 6.2 g/dL (6.4-8.2) Albumin 2.6 g/dL (3.4-5.0) Albumin/Globulin Ratio 0.7 (1.0-1.7) Medications Active Scripts Medications Dose Route/Sig Max Daily Dose Days Date Category Dose Instructions Atorvastatin Calcium 10 Mg Tablet 1 Tab PO DAILY 06/22/21 Reported Losartan Potassium 100 Mg Tablet 100 Mg PO DAILY 06/22/21 Reported Hydrochlorothiazide Capsule (Hydrochlorothiazide) 12.5 Mg Capsule 12.5 Mg PO DAILY 06/22/21 Reported Omeprazole 20 Mg Tablet.dr 1 Tab PO DAILY 06/22/21 Reported Take 30 minutes before meal Terazosin Hcl 5 Mg Capsule 1 Cap PO QHS PRN 06/22/21 Reported Impression . IMPRESSION: 1. Acute on chronic respiratory failure--slowly improving 2. COVID-[address] revealing no evidence of pulmonary embolism. 4. Chronic obstructive pulmonary disease. 5. Other comorbidities as listed above. 6. Abnormal chest x-ray with diffuse bilateral infiltrates consistent with COVID-19 viral pneumonia Plan . 1. Continue oxygen supplementation. Currently down to 7 L of oxygen. We will continue to wean, keeping saturations more than 92%. 2. steroids. Completed full course. Dexamethasone to be discontinued on June 29 3. S/P remdesivir and tocilizumab 4. completed course of antibiotics 5. lovenox for dvt prophylaxis increase to bid 6. pepcid for stress ulcer prophylaxis D/W WU ANTOINE MD Jun 25, 2021 08:45
[2021-06-25 11:00] VITALS: BP 126/63
--- NOTE | 2021-06-25 11:51 | PDOC ---
[employer] PROGRESS NOTE Date of Service DOS: DATE: 06/25/21 TIME: 11:49 Chief Complaint Chief Complaint COVID-19 -status post tocilizumab 06/18/2021 he completed remdesivir. 10 days of steroids completed 06/22/2021. Hypoxemia requiring supp O2 Renal insufficiency Sepsis Acute respiratory failure with hypoxia with COVID-19 complicated by community- acquired pneumonia off antibiotics. Acute lung injury with bilateral infiltrates pneumonia Hyponatremia, acute illness, dry SHADY, acute vasomotor nephropathy Hypercalcemia HTN HLD GERD Bandemia History of Present Illness History of Present Illness 06/25/2021 Patient seen and examined Currently on 7 L of oxygen Discussed with RN Chart reviewed Afebrile overnight. On Vapotherm 20 L/min 55% FiO2 with saturations 95%. Another solid bowel movement appetite is stable. WBC 18. ALT and AST trending upward minimally. He has if he still contagious and when he can get vaccinated. Overall he is very weak today. CC time 30 minutes 06/23: Afebrile overnight. On Vapotherm 25 L/min 70% FiO2 30 saturations 97%. Stools have firmed up. Good appetite. WBC trended upward. 06/22: WBC 16.4. On Vapotherm 30 L/min 80% FiO2. Saturations 91%. He removed his Vapotherm with O2 sats down to the 50s. Having some loose stools. Increased appetite. 06/21: Patient evaluated examined at bedside. Still requiring Vapotherm in the ICU. Continue current COVID treatments. Wean oxygen as tolerated. 06/20: Patient evaluated examined at bedside. Requiring Vapotherm still saturations low 90s. He will need ICU admission. Continue COVID treatment. Plan of care discussed with bedside RN. 06/19: Patient evaluated and examined at bedside. He was on 15 L nonrebreather and Vapotherm however Vapotherm was not even in his nose and he was saturating well. I woke him sleep he had no complaints. Continue current plan. 06/18: Patient seen and examined. He is on 100% Non-rebreather mask. 12L O2 per NC 06/17: Patient seen and examined at bedside. Patient reports feeling about the same as yesterday. 06/16: Patient seen and examined. He is on 100% rebreather. He is getting day 4 remdesivir today at 17 06/15: Patient seen and examined. He is currently on a 100% nonrebreather HPI: Mr Jasso is a 64-year-old man with past medical history HTN, HLD, GERD, who presents to the ER with complaints of shortness of breath since day before admission He reports "cold-like symptoms "over the past 8 days prior to presentation. He went to an urgent care, was diagnosed with COVID-19 on 06/12/2021. He was sent home with a a home oxygen monitor and was told to come back to the ED if his O2 saturation dropped below 90. At home his oxygen saturations were reading in the 80s, so he came to the ER for further evaluation. Labs on admission showed WBC 14.3, sodium 129, BUN 31, creatinine 1.5, CBG 164, AST 45, ALT 47. CTA chest showed no evidence of pulmonary embolus, but patchy groundglass opacities throughout both lungs consistent with COVID-19 pneumonitis, mild mediastinal lymphadenopathy, and coronary artery calcifications. He has not been vaccinated against COVID-19. He was given IV fluids, Rocephin, and doxycycline in the ED. Admitted patient for further medical management. Vitals/I&O Vitals/I&O: Vital Signs Date Time Temp Pulse Resp B/P (MAP) Pulse Ox O2 Delivery O2 Flow Rate FiO2 06/25/21 08:00 Nasal Cannula 7.0 06/25/21 07:00 98.7 99 18 137/66 (89) 96 98.7 I & O 06/24/21 06/24/21 06/25/21 15:00 23:00 07:00 Intake Total 120 ml Output Total 490 ml Balance -370 ml Physical Exam Physical Exam: GENERAL: Alert, awake male, appears comfortable. HEART: S1, S2 ABDOMEN: nondistended. DERMATOLOGIC: no generalized rash. NEUROLOGIC: Alert and awake Lungs clear skin nad General: Alert, Oriented X3, Cooperative, mild distress Heart: Regular rate, Normal S1 Abdomen: Normal bowel sounds Extremities: No clubbing, No edema Skin: No breakdown Labs Labs: Laboratory Tests Test 06/25/21 07:08 Sodium Level 133 mmol/L (136-145) Potassium Level 4.6 mmol/L (3.5-5.1) Chloride Level 101 mmol/L (98-107) Carbon Dioxide Level 27 mmol/L (21-32) Anion Gap 5 (6-14) Blood Urea Nitrogen 21 mg/dL (8-26) Creatinine 0.9 mg/dL (0.7-1.3) Estimated GFR (Cockcroft-Gault) 83.9 BUN/Creatinine Ratio 23 (6-20) Glucose Level 101 mg/dL (70-99) Calcium Level 8.3 mg/dL (8.5-10.1) Total Bilirubin 0.7 mg/dL (0.2-1.0) Aspartate Amino Transf (AST/SGOT) 43 U/L (15-37) Alanine Aminotransferase (ALT/SGPT) 123 U/L (16-63) Alkaline Phosphatase 69 U/L (46-116) Total Protein 6.2 g/dL (6.4-8.2) Albumin 2.6 g/dL (3.4-5.0) Albumin/Globulin Ratio 0.7 (1.0-1.7) Assessment and Plan Assessmemt and Plan Problems Medical Problems: (1) Bandemia Status: Acute (2) COVID-19 Status: Acute (3) Hypoxemia requiring supplemental oxygen Status: Acute (4) Renal insufficiency Status: Acute (5) Sepsis COVID-19 -status post tocilizumab 06/18/2021 he completed remdesivir. 10 days of steroids completed 06/22/2021. Hypoxemia requiring supp O2 Renal insufficiency Sepsis Acute respiratory failure with hypoxia with COVID-19 complicated by community- acquired pneumonia off antibiotics. Acute lung injury with bilateral infiltrates pneumonia Hyponatremia, acute illness, dry SHADY, acute vasomotor nephropathy Hypercalcemia HTN HLD GERD Bandemia Plan S/P remdesivir and tocilizumab He has completed most of the other Covid protocol but will continue the following; Continue O2 per nasal cannula currently at 7 L trying to titrate it down Continue IV Decadron He is on as needed Robitussin-DM Lovenox for DVT prophylaxis Vitamin C Zinc [facility]erol [facility] Home med[facility] Full code Appreciate subspecialist input Per pulmonary recommendations please see the following and we certainly appreciate and agree; IMPRESSION: 1. Acute on chronic respiratory failure--slowly improving 2. COVID-[address] revealing no evidence of pulmonary embolism. 4. Chronic obstructive pulmonary disease. 5. Other comorbidities as listed above. 6. Abnormal chest x-ray with diffuse bilateral infiltrates consistent with COVID-19 viral pneumonia Plan 1. Continue oxygen supplementation. Currently down to 7 L of oxygen. We will continue to wean, keeping saturations more than 92%. 2. steroids. Completed full course. Dexamethasone to be discontinued on June 29 3. S/P remdesivir and tocilizumab 4. completed course of antibiotics 5. lovenox for dvt prophylaxis increase to bid 6. pepcid for stress ulcer prophylaxis D/W RN Comment Review of Relevant I have reviewed the following items alessia (where applicable) has been applied. Medications: Current Medications Medications (Trade) Dose Ordered Sig/Andriy Route PRN Reason Start Time Stop Time Status Last Admin Dose Admin Dexamethasone (Decadron) 2 mg [id number] PO 06/25/21 08:00 06/29/21 07:59 06/25/21 08:42 Justifications for Admission General Conditions Other justification for admit: Respiratory failure with hypoxia, COVID-19 Other Justification MADISON RODRIGUEZ III DO Jun 25, 2021 11:51
[2021-06-25 15:00] VITALS: BP 125/68
[2021-06-25 19:00] VITALS: BP 132/78
[2021-06-25 23:00] VITALS: BP 147/83
[2021-06-26 03:00] VITALS: BP 129/71
[2021-06-26 06:12] LABS: ALBUMIN 2.7 g/dL (3.4-5.0); ALBUMIN/GLOBULIN RATIO 0.8 (1.0-1.7); CALCIUM 8.5 mg/dL (8.5-10.1); CREATININE 0.9 mg/dL (0.7-1.3); GFR 83.9; POTASSIUM 4.7 mmol/L (3.5-5.1); TOTAL BILIRUBIN 0.7 mg/dL (0.2-1.0); TOTAL PROTEIN 6.2 g/dL (6.4-8.2)
[2021-06-26 07:00] VITALS: BP 122/68
[2021-06-26] MEDS: ZINC SULFATE 220 MG CAPSULE. PO SCH (08:56)
[2021-06-26] MEDS: FAMOTIDINE 20 MG TABLET. PO PRN (08:57)
[2021-06-26] MEDS: ASCORBIC ACID 500 MG TABLET PO SCH ×2 (08:57→22:21)
[2021-06-26] MEDS: guaiFENesin DM 200MG/20MG 10 ML SYRUP PO PRN (08:57)
[2021-06-26] MEDS: DEXAMETHASONE 4 MG TABLET PO SCH (08:57)
[2021-06-26] MEDS: BENZONATATE 100 MG CAPSULE. PO PRN (08:58)
[2021-06-26] MEDS: LACTOBACILLUS RHAMNOSUS GG 1 CAPSULE. PO SCH ×2 (08:58→22:21)
[2021-06-26] MEDS: ENOXAPARIN 40 MG/0.4 ML SYRINGE. SQ SCH ×2 (08:59→22:21)
[2021-06-26] MEDS ORDERED: DEXAMETHASONE 4 MG TABLET PO ONE (10:00)
--- NOTE | 2021-06-26 10:15 | PDOC ---
PULMONARY PROGRESS NOTES DATE: 06/26/21 TIME: 10:13 Subjective Patient desaturates with activity. Patient is a mouth breather. Was on 7 L nasal cannula. RN has placed him on a nonrebreather mask as he was noted to have desaturations with activity. Vitals Vital Signs Date Time Temp Pulse Resp B/P (MAP) Pulse Ox O2 Delivery O2 Flow Rate FiO2 06/26/21 07:00 95.7 89 22 122/68 (86) 91 Nasal Cannula 15.0 95.7 Comments no distress nc at rrr no accessory muscle use no paradoixcal abd motion no rash Labs Laboratory Tests Test 06/25/21 07:08 06/26/21 04:30 Sodium Level 133 mmol/L (136-145) 134 mmol/L (136-145) Potassium Level 4.6 mmol/L (3.5-5.1) 4.7 mmol/L (3.5-5.1) Chloride Level 101 mmol/L (98-107) 100 mmol/L (98-107) Carbon Dioxide Level 27 mmol/L (21-32) 27 mmol/L (21-32) Anion Gap 5 (6-14) 7 (6-14) Blood Urea Nitrogen 21 mg/dL (8-26) 26 mg/dL (8-26) Creatinine 0.9 mg/dL (0.7-1.3) 0.9 mg/dL (0.7-1.3) Estimated GFR (Cockcroft-Gault) 83.9 83.9 BUN/Creatinine Ratio 23 (6-20) 29 (6-20) Glucose Level 101 mg/dL (70-99) 97 mg/dL (70-99) Calcium Level 8.3 mg/dL (8.5-10.1) 8.5 mg/dL (8.5-10.1) Total Bilirubin 0.7 mg/dL (0.2-1.0) 0.7 mg/dL (0.2-1.0) Aspartate Amino Transf (AST/SGOT) 43 U/L (15-37) 45 U/L (15-37) Alanine Aminotransferase (ALT/SGPT) 123 U/L (16-63) 139 U/L (16-63) Alkaline Phosphatase 69 U/L (46-116) 62 U/L (46-116) Total Protein 6.2 g/dL (6.4-8.2) 6.2 g/dL (6.4-8.2) Albumin 2.6 g/dL (3.4-5.0) 2.7 g/dL (3.4-5.0) Albumin/Globulin Ratio 0.7 (1.0-1.7) 0.8 (1.0-1.7) Laboratory Tests Test 06/26/21 04:30 Sodium Level 134 mmol/L (136-145) Potassium Level 4.7 mmol/L (3.5-5.1) Chloride Level 100 mmol/L (98-107) Carbon Dioxide Level 27 mmol/L (21-32) Anion Gap 7 (6-14) Blood Urea Nitrogen 26 mg/dL (8-26) Creatinine 0.9 mg/dL (0.7-1.3) Estimated GFR (Cockcroft-Gault) 83.9 BUN/Creatinine Ratio 29 (6-20) Glucose Level 97 mg/dL (70-99) Calcium Level 8.5 mg/dL (8.5-10.1) Total Bilirubin 0.7 mg/dL (0.2-1.0) Aspartate Amino Transf (AST/SGOT) 45 U/L (15-37) Alanine Aminotransferase (ALT/SGPT) 139 U/L (16-63) Alkaline Phosphatase 62 U/L (46-116) Total Protein 6.2 g/dL (6.4-8.2) Albumin 2.7 g/dL (3.4-5.0) Albumin/Globulin Ratio 0.8 (1.0-1.7) Medications Active Scripts Medications Dose Route/Sig Max Daily Dose Days Date Category Dose Instructions Atorvastatin Calcium 10 Mg Tablet 1 Tab PO DAILY 06/22/21 Reported Losartan Potassium 100 Mg Tablet 100 Mg PO DAILY 06/22/21 Reported Hydrochlorothiazide Capsule (Hydrochlorothiazide) 12.5 Mg Capsule 12.5 Mg PO DAILY 06/22/21 Reported Omeprazole 20 Mg Tablet.dr 1 Tab PO DAILY 06/22/21 Reported Take 30 minutes before meal Terazosin Hcl 5 Mg Capsule 1 Cap PO QHS PRN 06/22/21 Reported Impression . IMPRESSION: 1. Acute on chronic respiratory failure-- 2. COVID-[address] revealing no evidence of pulmonary embolism. 4. Chronic obstructive pulmonary disease. 5. Other comorbidities as listed above. 6. Abnormal chest x-ray with diffuse bilateral infiltrates consistent with COVID-19 viral pneumonia Plan . 1. Patient's oxygen requirement has increased today. He is a mouth breather and does not tolerate nasal cannula well. Will use simple mask at 8 to 10 L. Will obtain a chest x-ray to make sure there is no radiographic worsening. 2. steroids. Completed full course. Dexamethasone to be discontinued on June 29 3. S/P remdesivir and tocilizumab 4. completed course of antibiotics 5. lovenox for dvt prophylaxis 6. pepcid for stress ulcer prophylaxis D/W RN and patient's hospitalist WU MENDOZA MD Jun 26, 2021 10:15
[2021-06-26 11:00] VITALS: BP 139/70
--- NOTE | 2021-06-26 12:53 | RAD ---
EXAM: AP View of the chest DATE: 06/26/2021 10:27 AM INDICATION: Reason: covid/ hypoxia / Spl. Instructions: / History: COMPARISON: 06/18/2021 FINDINGS: The heart is not enlarged. Mediastinal and hilar contours are stable. Patchy bilateral parenchymal airspace opacities, predominantly peripherally, are marginally improved compared to 06/18/2021. No pleural effusion or pneumothorax. IMPRESSION: Patchy bilateral parenchymal airspace opacities are marginally improved compared to 06/18/2021. Electronically signed by: Johnny Kim MD (06/26/2021 12:51 PM) [id number]
[2021-06-26] MEDS: IV NORMAL SALINE 1000ML BAG 1,000 ML IV SCH (12:59)
[2021-06-26 15:00] VITALS: BP 121/66
--- NOTE | 2021-06-26 15:57 | PDOC ---
PROGRESS NOTES Date of Service: DATE: 06/26/21 TIME: 15:53 Chief Complaint Chief Complaint COVID-19 -status post tocilizumab 06/18/2021 he completed remdesivir. 10 days of steroids completed 06/22/2021. Hypoxemia requiring supp O2 Renal insufficiency Sepsis Acute respiratory failure with hypoxia with COVID-19 complicated by community- acquired pneumonia off antibiotics. Acute lung injury with bilateral infiltrates pneumonia Hyponatremia, acute illness, dry SHADY, acute vasomotor nephropathy Hypercalcemia HTN HLD GERD Bandemia History of Present Illness History of Present Illness 06/26/2021 No acute events reported overnight, case discussed with nursing staff patient in no acute distress no complaints during my visit this morning patient required unfortunately he had to be put back on nonrebreather mask and his oxygen requirements have increased. Discussed with pulmonary strategy consultant at bedside All concerns addressed to the best of my abilities 06/25/2021 Patient seen and examined Currently on 7 L of oxygen Discussed with RN Chart reviewed Afebrile overnight. On Vapotherm 20 L/min 55% FiO2 with saturations 95%. Another solid bowel movement appetite is stable. WBC 18. ALT and AST trending upward minimally. He has if he still contagious and when he can get vaccinated. Overall he is very weak today. CC time 30 minutes 06/23: Afebrile overnight. On Vapotherm 25 L/min 70% FiO2 30 saturations 97%. Stools have firmed up. Good appetite. WBC trended upward. 06/22: WBC 16.4. On Vapotherm 30 L/min 80% FiO2. Saturations 91%. He removed his Vapotherm with O2 sats down to the 50s. Having some loose stools. Increased appetite. 06/21: Patient evaluated examined at bedside. Still requiring Vapotherm in the ICU. Continue current COVID treatments. Wean oxygen as tolerated. 06/20: Patient evaluated examined at bedside. Requiring Vapotherm still saturations low 90s. He will need ICU admission. Continue COVID treatment. Plan of care discussed with bedside RN. 06/19: Patient evaluated and examined at bedside. He was on 15 L nonrebreather and Vapotherm however Vapotherm was not even in his nose and he was saturating well. I woke him sleep he had no complaints. Continue current plan. 06/18: Patient seen and examined. He is on 100% Non-rebreather mask. 12L O2 per NC 06/17: Patient seen and examined at bedside. Patient reports feeling about the same as yesterday. 06/16: Patient seen and examined. He is on 100% rebreather. He is getting day 4 remdesivir today at 17 06/15: Patient seen and examined. He is currently on a 100% nonrebreather HPI: Mr Jasso is a 64-year-old man with past medical history HTN, HLD, GERD, who presents to the ER with complaints of shortness of breath since day before admission He reports "cold-like symptoms "over the past 8 days prior to presentation. He went to an urgent care, was diagnosed with COVID-19 on 06/12/2021. He was sent home with a a home oxygen monitor and was told to come back to the ED if his O2 saturation dropped below 90. At home his oxygen saturations were reading in the 80s, so he came to the ER for further evaluation. Labs on admission showed WBC 14.3, sodium 129, BUN 31, creatinine 1.5, CBG 164, AST 45, ALT 47. CTA chest showed no evidence of pulmonary embolus, but patchy groundglass opacities throughout both lungs consistent with COVID-19 pneumonitis, mild mediastinal lymphadenopathy, and coronary artery calcifications. He has not been vaccinated against COVID-19. He was given IV fluids, Rocephin, and doxycycline in the ED. Admitted patient for further medical management. Vitals Vitals Vital Signs Date Time Temp Pulse Resp B/P (MAP) Pulse Ox O2 Delivery O2 Flow Rate FiO2 06/26/21 11:00 96.5 97 18 139/70 (93) 96 Nasal Cannula 15.0 96.5 Physical Exam Physical Exam GENERAL: Alert, awake male, appears comfortable. HEART: S1, S2 ABDOMEN: nondistended. DERMATOLOGIC: no generalized rash. NEUROLOGIC: Alert and awake Lungs clear skin nad General: Alert, Oriented X3, Cooperative, mild distress Heart: Regular rate, Normal S1 Abdomen: Normal bowel sounds Extremities: No clubbing, No edema Skin: No breakdown Labs LABS Laboratory Tests Test 06/26/21 04:30 Sodium Level 134 mmol/L (136-145) Potassium Level 4.7 mmol/L (3.5-5.1) Chloride Level 100 mmol/L (98-107) Carbon Dioxide Level 27 mmol/L (21-32) Anion Gap 7 (6-14) Blood Urea Nitrogen 26 mg/dL (8-26) Creatinine 0.9 mg/dL (0.7-1.3) Estimated GFR (Cockcroft-Gault) 83.9 BUN/Creatinine Ratio 29 (6-20) Glucose Level 97 mg/dL (70-99) Calcium Level 8.5 mg/dL (8.5-10.1) Total Bilirubin 0.7 mg/dL (0.2-1.0) Aspartate Amino Transf (AST/SGOT) 45 U/L (15-37) Alanine Aminotransferase (ALT/SGPT) 139 U/L (16-63) Alkaline Phosphatase 62 U/L (46-116) Total Protein 6.2 g/dL (6.4-8.2) Albumin 2.7 g/dL (3.4-5.0) Albumin/Globulin Ratio 0.8 (1.0-1.7) Review of Systems Review of Systems Review of systems pertinent as per HPI otherwise 14 point review of system is negative Assessment and Plan Assessmemt and Plan Problems Medical Problems: (1) Bandemia Status: Acute (2) COVID-19 Status: Acute (3) Hypoxemia requiring supplemental oxygen Status: Acute (4) Renal insufficiency Status: Acute (5) Sepsis Status: Acute Comment Review of Relevant I have reviewed the following items alessia (where applicable) has been applied. Labs Laboratory Tests Test 06/25/21 07:08 06/26/21 04:30 Sodium Level 133 mmol/L (136-145) 134 mmol/L (136-145) Potassium Level 4.6 mmol/L (3.5-5.1) 4.7 mmol/L (3.5-5.1) Chloride Level 101 mmol/L (98-107) 100 mmol/L (98-107) Carbon Dioxide Level 27 mmol/L (21-32) 27 mmol/L (21-32) Anion Gap 5 (6-14) 7 (6-14) Blood Urea Nitrogen 21 mg/dL (8-26) 26 mg/dL (8-26) Creatinine 0.9 mg/dL (0.7-1.3) 0.9 mg/dL (0.7-1.3) Estimated GFR (Cockcroft-Gault) 83.9 83.9 BUN/Creatinine Ratio 23 (6-20) 29 (6-20) Glucose Level 101 mg/dL (70-99) 97 mg/dL (70-99) Calcium Level 8.3 mg/dL (8.5-10.1) 8.5 mg/dL (8.5-10.1) Total Bilirubin 0.7 mg/dL (0.2-1.0) 0.7 mg/dL (0.2-1.0) Aspartate Amino Transf (AST/SGOT) 43 U/L (15-37) 45 U/L (15-37) Alanine Aminotransferase (ALT/SGPT) 123 U/L (16-63) 139 U/L (16-63) Alkaline Phosphatase 69 U/L (46-116) 62 U/L (46-116) Total Protein 6.2 g/dL (6.4-8.2) 6.2 g/dL (6.4-8.2) Albumin 2.6 g/dL (3.4-5.0) 2.7 g/dL (3.4-5.0) Albumin/Globulin Ratio 0.7 (1.0-1.7) 0.8 (1.0-1.7) Laboratory Tests Test 06/26/21 04:30 Sodium Level 134 mmol/L (136-145) Potassium Level 4.7 mmol/L (3.5-5.1) Chloride Level 100 mmol/L (98-107) Carbon Dioxide Level 27 mmol/L (21-32) Anion Gap 7 (6-14) Blood Urea Nitrogen 26 mg/dL (8-26) Creatinine 0.9 mg/dL (0.7-1.3) Estimated GFR (Cockcroft-Gault) 83.9 BUN/Creatinine Ratio 29 (6-20) Glucose Level 97 mg/dL (70-99) Calcium Level 8.5 mg/dL (8.5-10.1) Total Bilirubin 0.7 mg/dL (0.2-1.0) Aspartate Amino Transf (AST/SGOT) 45 U/L (15-37) Alanine Aminotransferase (ALT/SGPT) 139 U/L (16-63) Alkaline Phosphatase 62 U/L (46-116) Total Protein 6.2 g/dL (6.4-8.2) Albumin 2.7 g/dL (3.4-5.0) Albumin/Globulin Ratio 0.8 (1.0-1.7) Medications Current Medications Sodium Chloride 1,000 ml @ 1,000 mls/hr 1X ONCE IV Last administered on 06/13/21at 15:00; Start 06/13/21 at 15:30; Stop 06/13/21 at 16:29; Status DC Iohexol (Omnipaque 350 Mg/ml) 100 ml 1X ONCE IV Last administered on 06/13/21at 16:19; Start 06/13/21 at 16:00; Stop 06/13/21 at 16:01; Status DC Info (CONTRAST GIVEN -- Rx MONITORING) 1 each PRN DAILY PRN MC SEE COMMENTS; Start 06/13/21 at 16:00; Stop 06/15/21 at 15:59; Status DC Ondansetron HCl (Zofran) 4 mg PRN Q6HRS PRN IVP NAUSEA/VOMITING; Start 06/13/21 at 17:00 Al Hydroxide/Mg Hydroxide (Mylanta Plus Xs) 30 ml PRN Q3HRS PRN PO HEARTBURN / GAS, 2ND CHOICE; Start 06/13/21 at 17:00 Calcium Carbonate/ Glycine (Tums) 500 mg PRN Q3HRS PRN PO UPSET STOMACH Last administered on 06/20/21at 17:19; Start 06/13/21 at 17:00 Zolpidem Tartrate (Ambien) 5 mg PRN QHS PRN PO INSOMNIA, MAY REPEAT IN 1HR; Start 06/13/21 at 17:00 Acetaminophen/ Hydrocodone Bitart (Lortab 5/325) 1 tab PRN Q4HRS PRN PO PAIN; Start 06/13/21 at 17:00 Acetaminophen (Tylenol) 650 mg PRN Q6HRS PRN PO Headaches, Temp > 101.5F Last administered on 06/17/21at 11:50; Start 06/13/21 at 17:00 Magnesium Hydroxide (Milk Of Magnesia) 2,400 mg PRN Q12HR PRN PO CONSTIPATION; Start 06/13/21 at 17:00 Enoxaparin Sodium (Lovenox 40mg Syringe) 40 mg Q24H SQ Last administered on 06/20/21at 20:08; Start 06/13/21 at 21:00; Stop 06/21/21 at 11:27; Status DC Loperamide HCl (Imodium) 2 mg PRN Q15MIN PRN PO DIARRHEA Last administered on 06/22/21at 10:31; Start 06/13/21 at 17:00 Tizanidine HCl (Zanaflex) 4 mg PRN Q8HRS PRN PO MUSCLE SPASMS; Start 06/13/21 at 17:00 Benzonatate (Tessalon Perle) 100 mg PRN Q8HRS PRN PO COUGH Last administered on 06/26/21at 08:58; Start 06/13/21 at 17:00 Ascorbic Acid (Vitamin C) 500 mg BID PO Last administered on 06/26/21at 08:57; Start 06/13/21 at 21:00; Stop 06/27/21 at 20:59 Zinc Sulfate (Orazinc) 440 mg DAILY PO Last administered on 06/26/21at 08:56; Start 06/13/21 at 18:00; Stop 06/28/21 at 17:59 Throat Lozenges (Cepacol Sore Throat Lozenge) 1 iwona PRN Q2HRS PRN PO SORE THROAT; Start 06/13/21 at 17:00 Doxycycline Hyclate (Vibra-Tab) 100 mg BID PO ; Start 06/13/21 at 21:00; Stop 06/13/21 at 17:27; Status DC Ceftriaxone Sodium (Rocephin) 1 gm DAILY IVP ; Start 06/13/21 at 18:00; Stop 06/13/21 at 17:27; Status DC Albuterol Sulfate (Ventolin Hfa) 2 puff PRN Q4HRS PRN INH SHORTNESS OF BREATH; Start 06/13/21 at 17:30 Remdesivir 200 mg/ Sodium Chloride 210 ml @ 210 mls/hr 1X ONCE IV Last administered on 06/13/21at 20:42; Start 06/13/21 at 19:00; Stop 06/13/21 at 19:59; Status DC Remdesivir 100 mg/ Sodium Chloride 230 ml @ 460 mls/hr Q24H IV Last administered on 06/17/21at 20:42; Start 06/14/21 at 19:00; Stop 06/17/21 at 19:29; Status DC Hydralazine HCl (Apresoline Inj) 10 mg PRN Q4HRS PRN IVP HYPERTENSION; Start 06/13/21 at 17:30 Ceftriaxone Sodium (Rocephin) 1 gm DAILY IVP Last administered on 06/18/21at 10:20; Start 06/14/21 at 09:00; Stop 06/19/21 at 08:59; Status DC Doxycycline Hyclate (Vibra-Tab) 100 mg BID PO Last administered on 06/18/21at 20:57; Start 06/14/21 at 09:00; Stop 06/19/21 at 08:59; Status DC Famotidine (Pepcid) 20 mg PRN BID PRN PO HEARTBURN / GAS Last administered on 06/26/21 08:57; Start 06/13/21 at 17:30 Dexamethasone Sodium Phosphate (Decadron) 6 mg DAILY IVP Last administered on 06/22/21at 08:27; Start 06/14/21 at 09:00; Stop 06/23/21 at 08:10; Status DC Dexamethasone Sodium Phosphate (Decadron) 6 mg 1X ONCE IVP Last administered on 06/13/21at 20:44; Start 06/13/21 at 20:00; Stop 06/13/21 at 20:01; Status DC Lactobacillus Rhamnosus (Culturelle) 1 cap BID PO Last administered on 06/26/21at 08:58; Start 06/14/21 at 21:00 Sterile Water (WATER for RESP) 2,000 ml CONT PRN INH VIA VAPOTHERM DEVICE Last administered on 06/23/21at 08:06; Start 06/18/21 at 18:30 Tocilizumab 600 mg/Sodium Chloride 100 ml @ 100 mls/hr 1X ONCE IV Last administered on 06/18/21at 21:00; Start 06/18/21 at 20:00; Stop 06/18/21 at 20:59; Status DC Enoxaparin Sodium (Lovenox 40mg Syringe) 40 mg Q12HR SQ Last administered on 06/26/21 08:59; Start 06/21/21 at 12:00 Guaifenesin (Robitussin Dm) 10 ml PRN Q6HRS PRN PO COUGH- 1st choice Last administered on 06/26/21 08:57; Start 06/22/21 at 09:45 Dexamethasone (Decadron) 2 mg DAILYWBKFT PO Last administered on 06/24/21at 08:46; Start 06/24/21 at 08:00; Stop 06/25/21 at 05:43; Status DC Dexamethasone (Decadron) 2 mg DAILYWBKFT PO Last administered on 06/26/21at 0 8:57; Start 06/25/21 at 08:00; Stop 06/26/21 at 09:55; Status DC Dexamethasone (Decadron) 6 mg DAILYWBKFT PO ; Start 06/27/21 at 08:00 Dexamethasone (Decadron) 4 mg 1X ONCE PO Last administered on 06/26/21at 10:41; Start 06/26/21 at 10:00; Stop 06/26/21 at 10:01; Status DC Sodium Chloride 1,000 ml @ 75 mls/hr [id number] IV Last administered on 06/26/21at 12:59; Start 06/26/21 at 12:30 Active Scripts Active Reported Atorvastatin Calcium 10 Mg Tablet 1 Tab PO DAILY Losartan Potassium 100 Mg Tablet 100 Mg PO DAILY Hydrochlorothiazide Capsule (Hydrochlorothiazide) 12.5 Mg Capsule 12.5 Mg PO DAILY Omeprazole 20 Mg Tablet.dr 1 Tab PO DAILY Take 30 minutes before meal Terazosin Hcl 5 Mg Capsule 1 Cap PO QHS PRN Vitals/I & O Vital Sign - Last 24 Hours 06/25/21 06/25/21 06/25/21 06/25/21 19:00 20:05 22:15 22:20 Temp 97.4 97.4 Pulse 85 Resp 28 B/P (MAP) 132/78 (96) Pulse Ox 97 86 90 O2 Delivery Nasal Cannula Nasal Cannula Nasal Cannula Nasal Cannula O2 Flow Rate 8.0 8.0 10.0 15.0 06/25/21 06/26/21 06/26/21 06/26/21 23:00 03:00 07:00 11:00 Temp 98.3 98.0 95.7 96.5 98.3 98.0 95.7 96.5 Pulse 83 91 89 97 Resp 24 22 22 18 B/P (MAP) 147/83 (104) 129/71 (90) 122/68 (86) 139/70 (93) Pulse Ox 91 95 91 96 O2 Delivery Nasal Cannula Nasal Cannula Nasal Cannula Nasal Cannula O2 Flow Rate 8.0 15.0 15.0 15.0 Intake and Output 06/25/21 06/25/21 06/26/21 15:00 23:00 07:00 Output Total 850 ml 300 ml 350 ml Balance -850 ml -300 ml -350 ml Nutrition Consultation Dietary Evaluation: Recommendations by RD: Dietary education by RD, Increase Calorie Intake, Protein supplementation Comments: pt likes sweets per RN, pt is a pickey eater will continue to send ensure pudding and magic cup oral nutrition supplements bid Expected Outcomes/Goals: to meet >75% est nutr needs- goal ongoing Malnutrition Findings: Body Fat Depletion (Non Severe: Mod to Severe Weight Status: Appropriate Justicifation of Admission Dx: Justifications for Admission: Justification of Admission Dx: Yes Comminuty Aquired Pneumonia: Hypoxemia DOROTHY HERBERT MD Jun 26, 2021 15:57
[2021-06-26 19:00] VITALS: BP 124/75
[2021-06-26 23:00] VITALS: BP 108/72
[2021-06-27] MEDS: IV NORMAL SALINE 1000ML BAG 1,000 ML IV SCH ×2 (02:24→16:49)
[2021-06-27 03:00] VITALS: BP 131/68
[2021-06-27 07:00] VITALS: BP 108/65
--- NOTE | 2021-06-27 07:35 | PDOC ---
PULMONARY PROGRESS NOTES DATE: 06/27/21 TIME: 07:33 Subjective on nrb 12 lpm sob better has occ cough Vitals Vital Signs Date Time Temp Pulse Resp B/P (MAP) Pulse Ox O2 Delivery O2 Flow Rate FiO2 06/27/21 03:00 98.5 84 18 131/68 (89) 96 Nasal Cannula 15.0 98.5 Comments no distress nc at rrr no accessory muscle use no paradoixcal abd motion no rash Labs Laboratory Tests Test 06/26/21 04:30 Sodium Level 134 mmol/L (136-145) Potassium Level 4.7 mmol/L (3.5-5.1) Chloride Level 100 mmol/L (98-107) Carbon Dioxide Level 27 mmol/L (21-32) Anion Gap 7 (6-14) Blood Urea Nitrogen 26 mg/dL (8-26) Creatinine 0.9 mg/dL (0.7-1.3) Estimated GFR (Cockcroft-Gault) 83.9 BUN/Creatinine Ratio 29 (6-20) Glucose Level 97 mg/dL (70-99) Calcium Level 8.5 mg/dL (8.5-10.1) Total Bilirubin 0.7 mg/dL (0.2-1.0) Aspartate Amino Transf (AST/SGOT) 45 U/L (15-37) Alanine Aminotransferase (ALT/SGPT) 139 U/L (16-63) Alkaline Phosphatase 62 U/L (46-116) Total Protein 6.2 g/dL (6.4-8.2) Albumin 2.7 g/dL (3.4-5.0) Albumin/Globulin Ratio 0.8 (1.0-1.7) Medications Active Scripts Medications Dose Route/Sig Max Daily Dose Days Date Category Dose Instructions Atorvastatin Calcium 10 Mg Tablet 1 Tab PO DAILY 06/22/21 Reported Losartan Potassium 100 Mg Tablet 100 Mg PO DAILY 06/22/21 Reported Hydrochlorothiazide Capsule (Hydrochlorothiazide) 12.5 Mg Capsule 12.5 Mg PO DAILY 06/22/21 Reported Omeprazole 20 Mg Tablet.dr 1 Tab PO DAILY 06/22/21 Reported Take 30 minutes before meal Terazosin Hcl 5 Mg Capsule 1 Cap PO QHS PRN 06/22/21 Reported Impression . IMPRESSION: 1. Acute on chronic respiratory failure-- 2. COVID-[address] revealing no evidence of pulmonary embolism. 4. Chronic obstructive pulmonary disease. 5. Other comorbidities as listed above. 6. Abnormal chest x-ray with diffuse bilateral infiltrates consistent with COVI D-19 viral pneumonia Plan . 1. 02 titration to keep sat 90% cxr reviewed Patchy bilateral parenchymal airspace opacities are marginally improved compared to 06/18/2021. 2. steroids. Dexamethasone to be discontinued on June 29 3. S/P remdesivir and tocilizumab 4. completed course of antibiotics 5. lovenox for dvt prophylaxis 6. pepcid for stress ulcer prophylaxis D/W NAM ROMO MD Jun 27, 2021 07:35
[2021-06-27 08:08] LABS: ALBUMIN 2.6 g/dL (3.4-5.0); ALBUMIN/GLOBULIN RATIO 0.8 (1.0-1.7); CALCIUM 8.3 mg/dL (8.5-10.1); CREATININE 0.8 mg/dL (0.7-1.3); GFR 96.1; TOTAL BILIRUBIN 0.7 mg/dL (0.2-1.0); TOTAL PROTEIN 5.9 g/dL (6.4-8.2)
[2021-06-27] MEDS: ENOXAPARIN 40 MG/0.4 ML SYRINGE. SQ SCH ×2 (09:19→21:21)
[2021-06-27] MEDS: ASCORBIC ACID 500 MG TABLET PO SCH (09:19)
[2021-06-27] MEDS: ZINC SULFATE 220 MG CAPSULE. PO SCH (09:19)
[2021-06-27] MEDS: DEXAMETHASONE 4 MG TABLET PO SCH (09:20)
[2021-06-27] MEDS: LACTOBACILLUS RHAMNOSUS GG 1 CAPSULE. PO SCH ×2 (09:20→21:21)
[2021-06-27 11:00] VITALS: BP 123/63
--- NOTE | 2021-06-27 13:30 | PDOC ---
PROGRESS NOTES Date of Service: DATE: 06/27/21 TIME: 13:29 Chief Complaint Chief Complaint COVID-19 -status post tocilizumab 06/18/2021 he completed remdesivir. 10 days of steroids completed 06/22/2021. Hypoxemia requiring supp O2 Renal insufficiency Sepsis Acute respiratory failure with hypoxia with COVID-19 complicated by community- acquired pneumonia off antibiotics. Acute lung injury with bilateral infiltrates pneumonia Hyponatremia, acute illness, dry SHADY, acute vasomotor nephropathy Hypercalcemia HTN HLD GERD Plan: continue supportive measures wean off steroids.; Encourage more activity Encourage incentive spirometry Encourage prone Continue with current DVT prophylaxis Follow recommendations from pci security consultant History of Present Illness History of Present Illness 06/26/2021 No acute events reported overnight, case discussed with nursing staff patient in no acute distress no complaints during my visit this morning patient required unfortunately he had to be put back on nonrebreather mask and his oxygen requirements have increased. Discussed with pulmonary pci security consultant at bedside All concerns addressed to the best of my abilities 06/25/2021 Patient seen and examined Currently on 7 L of oxygen Discussed with RN Chart reviewed Afebrile overnight. On Vapotherm 20 L/min 55% FiO2 with saturations 95%. Another solid bowel movement appetite is stable. WBC 18. ALT and AST trending upward minimally. He has if he still contagious and when he can get vaccinated. Overall he is very weak today. CC time 30 minutes 06/23: Afebrile overnight. On Vapotherm 25 L/min 70% FiO2 30 saturations 97%. Stools have firmed up. Good appetite. WBC trended upward. 06/22: WBC 16.4. On Vapotherm 30 L/min 80% FiO2. Saturations 91%. He removed his Vapotherm with O2 sats down to the 50s. Having some loose stools. Increased appetite. 06/21: Patient evaluated examined at bedside. Still requiring Vapotherm in the ICU. Continue current COVID treatments. Wean oxygen as tolerated. 06/20: Patient evaluated examined at bedside. Requiring Vapotherm still saturations low 90s. He will need ICU admission. Continue COVID treatment. Plan of care discussed with bedside RN. 06/19: Patient evaluated and examined at bedside. He was on 15 L nonrebreather and Vapotherm however Vapotherm was not even in his nose and he was saturating well. I woke him sleep he had no complaints. Continue current plan. 06/18: Patient seen and examined. He is on 100% Non-rebreather mask. 12L O2 per NC 06/17: Patient seen and examined at bedside. Patient reports feeling about the same as yesterday. 06/16: Patient seen and examined. He is on 100% rebreather. He is getting day 4 remdesivir today at 17 06/15: Patient seen and examined. He is currently on a 100% nonrebreather HPI: Mr Jasso is a 64-year-old man with past medical history HTN, HLD, GERD, who presents to the ER with complaints of shortness of breath since day before admission He reports "cold-like symptoms "over the past 8 days prior to presentation. He went to an urgent care, was diagnosed with COVID-19 on 06/12/2021. He was sent home with a a home oxygen monitor and was told to come back to the ED if his O2 saturation dropped below 90. At home his oxygen saturations were reading in the 80s, so he came to the ER for further evaluation. Labs on admission showed WBC 14.3, sodium 129, BUN 31, creatinine 1.5, CBG 164, AST 45, ALT 47. CTA chest showed no evidence of pulmonary embolus, but patchy groundglass opacities throughout both lungs consistent with COVID-19 pneumonitis, mild mediastinal lymphadenopathy, and coronary artery calcifications. He has not been vaccinated against COVID-19. He was given IV fluids, Rocephin, and doxycycline in the ED. Admitted patient for further medical management. Vitals Vitals Vital Signs Date Time Temp Pulse Resp B/P (MAP) Pulse Ox O2 Delivery O2 Flow Rate FiO2 06/27/21 11:00 97.7 90 18 123/63 (83) 97 Nasal Cannula 15.0 97.7 Physical Exam Physical Exam GENERAL: Alert, awake male, appears comfortable. HEART: S1, S2 ABDOMEN: nondistended. DERMATOLOGIC: no generalized rash. NEUROLOGIC: Alert and awake Lungs clear skin nad General: Alert, Oriented X3, Cooperative, mild distress Heart: Regular rate, Normal S1 Abdomen: Normal bowel sounds Extremities: No clubbing, No edema Skin: No breakdown Labs LABS Laboratory Tests Test 06/27/21 06:00 Sodium Level 136 mmol/L (136-145) Potassium Level 5.0 mmol/L (3.5-5.1) Chloride Level 102 mmol/L (98-107) Carbon Dioxide Level 27 mmol/L (21-32) Anion Gap 7 (6-14) Blood Urea Nitrogen 28 mg/dL (8-26) Creatinine 0.8 mg/dL (0.7-1.3) Estimated GFR (Cockcroft-Gault) 96.1 BUN/Creatinine Ratio 35 (6-20) Glucose Level 81 mg/dL (70-99) Calcium Level 8.3 mg/dL (8.5-10.1) Total Bilirubin 0.7 mg/dL (0.2-1.0) Aspartate Amino Transf (AST/SGOT) 34 U/L (15-37) Alanine Aminotransferase (ALT/SGPT) 124 U/L (16-63) Alkaline Phosphatase 61 U/L (46-116) Total Protein 5.9 g/dL (6.4-8.2) Albumin 2.6 g/dL (3.4-5.0) Albumin/Globulin Ratio 0.8 (1.0-1.7) Assessment and Plan Assessmemt and Plan Problems Medical Problems: (1) Bandemia Status: Acute (2) COVID-19 Status: Acute (3) Hypoxemia requiring supplemental oxygen Status: Acute (4) Renal insufficiency Status: Acute (5) Sepsis Status: Acute Comment Review of Relevant I have reviewed the following items alessia (where applicable) has been applied. Labs Laboratory Tests Test 06/26/21 04:30 06/27/21 06:00 Sodium Level 134 mmol/L (136-145) 136 mmol/L (136-145) Potassium Level 4.7 mmol/L (3.5-5.1) 5.0 mmol/L (3.5-5.1) Chloride Level 100 mmol/L (98-107) 102 mmol/L (98-107) Carbon Dioxide Level 27 mmol/L (21-32) 27 mmol/L (21-32) Anion Gap 7 (6-14) 7 (6-14) Blood Urea Nitrogen 26 mg/dL (8-26) 28 mg/dL (8-26) Creatinine 0.9 mg/dL (0.7-1.3) 0.8 mg/dL (0.7-1.3) Estimated GFR (Cockcroft-Gault) 83.9 96.1 BUN/Creatinine Ratio 29 (6-20) 35 (6-20) Glucose Level 97 mg/dL (70-99) 81 mg/dL (70-99) Calcium Level 8.5 mg/dL (8.5-10.1) 8.3 mg/dL (8.5-10.1) Total Bilirubin 0.7 mg/dL (0.2-1.0) 0.7 mg/dL (0.2-1.0) Aspartate Amino Transf (AST/SGOT) 45 U/L (15-37) 34 U/L (15-37) Alanine Aminotransferase (ALT/SGPT) 139 U/L (16-63) 124 U/L (16-63) Alkaline Phosphatase 62 U/L (46-116) 61 U/L (46-116) Total Protein 6.2 g/dL (6.4-8.2) 5.9 g/dL (6.4-8.2) Albumin 2.7 g/dL (3.4-5.0) 2.6 g/dL (3.4-5.0) Albumin/Globulin Ratio 0.8 (1.0-1.7) 0.8 (1.0-1.7) Laboratory Tests Test 06/27/21 06:00 Sodium Level 136 mmol/L (136-145) Potassium Level 5.0 mmol/L (3.5-5.1) Chloride Level 102 mmol/L (98-107) Carbon Dioxide Level 27 mmol/L (21-32) Anion Gap 7 (6-14) Blood Urea Nitrogen 28 mg/dL (8-26) Creatinine 0.8 mg/dL (0.7-1.3) Estimated GFR (Cockcroft-Gault) 96.1 BUN/Creatinine Ratio 35 (6-20) Glucose Level 81 mg/dL (70-99) Calcium Level 8.3 mg/dL (8.5-10.1) Total Bilirubin 0.7 mg/dL (0.2-1.0) Aspartate Amino Transf (AST/SGOT) 34 U/L (15-37) Alanine Aminotransferase (ALT/SGPT) 124 U/L (16-63) Alkaline Phosphatase 61 U/L (46-116) Total Protein 5.9 g/dL (6.4-8.2) Albumin 2.6 g/dL (3.4-5.0) Albumin/Globulin Ratio 0.8 (1.0-1.7) Medications Current Medications Sodium Chloride 1,000 ml @ 1,000 mls/hr 1X ONCE IV Last administered on 06/13/21at 15:00; Start 06/13/21 at 15:30; Stop 06/13/21 at 16:29; Status DC Iohexol (Omnipaque 350 Mg/ml) 100 ml 1X ONCE IV Last administered on 06/13/21at 16:19; Start 06/13/21 at 16:00; Stop 06/13/21 at 16:01; Status DC Info (CONTRAST GIVEN -- Rx MONITORING) 1 each PRN DAILY PRN MC SEE COMMENTS; Start 06/13/21 at 16:00; Stop 06/15/21 at 15:59; Status DC Ondansetron HCl (Zofran) 4 mg PRN Q6HRS PRN IVP NAUSEA/VOMITING; Start 06/13/21 at 17:00 Al Hydroxide/Mg Hydroxide (Mylanta Plus Xs) 30 ml PRN Q3HRS PRN PO HEARTBURN / GAS, 2ND CHOICE; Start 06/13/21 at 17:00 Calcium Carbonate/ Glycine (Tums) 500 mg PRN Q3HRS PRN PO UPSET STOMACH Last administered on 06/20/21at 17:19; Start 06/13/21 at 17:00 Zolpidem Tartrate (Ambien) 5 mg PRN QHS PRN PO INSOMNIA, MAY REPEAT IN 1HR; Start 06/13/21 at 17:00 Acetaminophen/ Hydrocodone Bitart (Lortab 5/325) 1 tab PRN Q4HRS PRN PO PAIN; Start 06/13/21 at 17:00 Acetaminophen (Tylenol) 650 mg PRN Q6HRS PRN PO Headaches, Temp > 101.5F Last administered on 06/17/21at 11:50; Start 06/13/21 at 17:00 Magnesium Hydroxide (Milk Of Magnesia) 2,400 mg PRN Q12HR PRN PO CONSTIPATION; Start 06/13/21 at 17:00 Enoxaparin Sodium (Lovenox 40mg Syringe) 40 mg Q24H SQ Last administered on 06/20/21at 20:08; Start 06/13/21 at 21:00; Stop 06/21/21 at 11:27; Status DC Loperamide HCl (Imodium) 2 mg PRN Q15MIN PRN PO DIARRHEA Last administered on 06/22/21at 10:31; Start 06/13/21 at 17:00 Tizanidine HCl (Zanaflex) 4 mg PRN Q8HRS PRN PO MUSCLE SPASMS; Start 06/13/21 at 17:00 Benzonatate (Tessalon Perle) 100 mg PRN Q8HRS PRN PO COUGH Last administered on 06/26/21at 08:58; Start 06/13/21 at 17:00 Ascorbic Acid (Vitamin C) 500 mg BID PO Last administered on 06/27/21at 09:19; Start 06/13/21 at 21:00; Stop 06/27/21 at 20:59 Zinc Sulfate (Orazinc) 440 mg DAILY PO Last administered on 06/27/21at 09:19; Start 06/13/21 at 18:00; Stop 06/28/21 at 17:59 Throat Lozenges (Cepacol Sore Throat Lozenge) 1 iwona PRN Q2HRS PRN PO SORE THROAT; Start 06/13/21 at 17:00 Doxycycline Hyclate (Vibra-Tab) 100 mg BID PO ; Start 06/13/21 at 21:00; Stop 06/13/21 at 17:27; Status DC Ceftriaxone Sodium (Rocephin) 1 gm DAILY IVP ; Start 06/13/21 at 18:00; Stop 06/13/21 at 17:27; Status DC Albuterol Sulfate (Ventolin Hfa) 2 puff PRN Q4HRS PRN INH SHORTNESS OF BREATH; Start 06/13/21 at 17:30 Remdesivir 200 mg/ Sodium Chloride 210 ml @ 210 mls/hr 1X ONCE IV Last administered on 06/13/21at 20:42; Start 06/13/21 at 19:00; Stop 06/13/21 at 19:59; Status DC Remdesivir 100 mg/ Sodium Chloride 230 ml @ 460 mls/hr Q24H IV Last administered on 06/17/21at 20:42; Start 06/14/21 at 19:00; Stop 06/17/21 at 19:29; Status DC Hydralazine HCl (Apresoline Inj) 10 mg PRN Q4HRS PRN IVP HYPERTENSION; Start 06/13/21 at 17:30 Ceftriaxone Sodium (Rocephin) 1 gm DAILY IVP Last administered on 06/18/21at 10:20; Start 06/14/21 at 09:00; Stop 06/19/21 at 08:59; Status DC Doxycycline Hyclate (Vibra-Tab) 100 mg BID PO Last administered on 06/18/21at 20:57; Start 06/14/21 at 09:00; Stop 06/19/21 at 08:59; Status DC Famotidine (Pepcid) 20 mg PRN BID PRN PO HEARTBURN / GAS Last administered on 06/26/21 08:57; Start 06/13/21 at 17:30 Dexamethasone Sodium Phosphate (Decadron) 6 mg DAILY IVP Last administered on 06/22/21at 08:27; Start 06/14/21 at 09:00; Stop 06/23/21 at 08:10; Status DC Dexamethasone Sodium Phosphate (Decadron) 6 mg 1X ONCE IVP Last administered on 06/13/21at 20:44; Start 06/13/21 at 20:00; Stop 06/13/21 at 20:01; Status DC Lactobacillus Rhamnosus (Culturelle) 1 cap BID PO Last administered on 06/27/21at 09:20; Start 06/14/21 at 21:00 Sterile Water (WATER for RESP) 2,000 ml CONT PRN INH VIA VAPOTHERM DEVICE Last administered on 06/23/21at 08:06; Start 06/18/21 at 18:30 Tocilizumab 600 mg/Sodium Chloride 100 ml @ 100 mls/hr 1X ONCE IV Last administered on 06/18/21at 21:00; Start 06/18/21 at 20:00; Stop 06/18/21 at 20:59; Status DC Enoxaparin Sodium (Lovenox 40mg Syringe) 40 mg Q12HR SQ Last administered on 06/27/21at 09:19; Start 06/21/21 at 12:00 Guaifenesin (Robitussin Dm) 10 ml PRN Q6HRS PRN PO COUGH- 1st choice Last administered on 06/26/21at 08:57; Start 06/22/21 at 09:45 Dexamethasone (Decadron) 2 mg DAILYWBKFT PO Last administered on 06/24/21at 08:46; Start 06/24/21 at 08:00; Stop 06/25/21 at 05:43; Status DC Dexamethasone (Decadron) 2 mg DAILYWBKFT PO Last administered on 06/26/21at 08:57; Start 06/25/21 at 08:00; Stop 06/26/21 at 09:55; Status DC Dexamethasone (Decadron) 6 mg DAILYWBKFT PO Last administered on 06/27/21at 09:20; Start 06/27/21 at 08:00 Dexamethasone (Decadron) 4 mg 1X ONCE PO Last administered on 06/26/21at 10:41; Start 06/26/21 at 10:00; Stop 06/26/21 at 10:01; Status DC Sodium Chloride 1,000 ml @ 75 mls/hr [id number] IV Last administered on 06/27/21at 02:24; Start 06/26/21 at 12:30 Active Scripts Active Reported Atorvastatin Calcium 10 Mg Tablet 1 Tab PO DAILY Losartan Potassium 100 Mg Tablet 100 Mg PO DAILY Hydrochlorothiazide Capsule (Hydrochlorothiazide) 12.5 Mg Capsule 12.5 Mg PO DAILY Omeprazole 20 Mg Tablet.dr 1 Tab PO DAILY Take 30 minutes before meal Terazosin Hcl 5 Mg Capsule 1 Cap PO QHS PRN Vitals/I & O Vital Sign - Last 24 Hours 06/26/21 06/26/21 06/26/21 06/26/21 15:00 19:00 20:00 23:00 Temp 96.9 96.5 96.5 96.9 96.5 96.5 Pulse 93 100 105 Resp 18 B/P (MAP) 121/66 (84) 124/75 (91) 108/72 (84) Pulse Ox 94 95 95 O2 Delivery Nasal Cannula Nasal Cannula Non-Rebreather Nasal Cannula O2 Flow Rate 15.0 15.0 15.0 15.0 06/27/21 06/27/21 06/27/21 06/27/21 03:00 07:00 08:00 11:00 Temp 98.5 97.9 97.7 98.5 97.9 97.7 Pulse 84 89 90 Resp 18 18 18 B/P (MAP) 131/68 (89) 108/65 (79) 123/63 (83) Pulse Ox 96 96 97 O2 Delivery Nasal Cannula Nasal Cannula Non-Rebreather Nasal Cannula O2 Flow Rate 15.0 15.0 15.0 15.0 Intake and Output 06/26/21 06/26/21 06/27/21 15:00 23:00 07:00 Intake Total 1000 ml Output Total 350 ml 950 ml Balance -350 ml 50 ml Nutrition Consultation Dietary Evaluation: Recommendations by RD: Dietary education by RD, Increase Calorie Intake, Protein supplementation Comments: pt likes sweets per RN, pt is a pickey eater will continue to send ensure pudding and magic cup oral nutrition supplements bid Expected Outcomes/Goals: to meet >75% est nutr needs- goal ongoing Malnutrition Findings: Body Fat Depletion (Non Severe: Mod to Severe Weight Status: Appropriate Justicifation of Admission Dx: Justifications for Admission: Justification of Admission Dx: Yes Comminuty Aquired Pneumonia: Hypoxemia DOROTHY HERBERT MD Jun 27, 2021 13:30
[2021-06-27 15:00] VITALS: BP 132/51
[2021-06-27 19:00] VITALS: BP 116/58
[2021-06-27] MEDS: tiZANidine 4 MG TABLET. PO PRN (21:21)
[2021-06-27 23:00] VITALS: BP 120/60
[2021-06-28 03:00] VITALS: BP 127/72
[2021-06-28] MEDS: IV NORMAL SALINE 1000ML BAG 1,000 ML IV SCH (04:30)
[2021-06-28 07:00] VITALS: BP 129/62
--- NOTE | 2021-06-28 07:25 | PDOC ---
PULMONARY PROGRESS NOTES DATE: 06/28/21 TIME: 07:23 Subjective on nrb 15 lpm o2 sat 99% feels better sob better has occ cough Vitals Vital Signs Date Time Temp Pulse Resp B/P (MAP) Pulse Ox O2 Delivery O2 Flow Rate FiO2 06/28/21 03:00 98.3 80 18 127/72 (90) 96 NonRebreather Mask 15.0 98.3 Comments no distress nc at rrr no accessory muscle use no paradoixcal abd motion no rash Labs Laboratory Tests Test 06/27/21 06:00 Sodium Level 136 mmol/L (136-145) Potassium Level 5.0 mmol/L (3.5-5.1) Chloride Level 102 mmol/L (98-107) Carbon Dioxide Level 27 mmol/L (21-32) Anion Gap 7 (6-14) Blood Urea Nitrogen 28 mg/dL (8-26) Creatinine 0.8 mg/dL (0.7-1.3) Estimated GFR (Cockcroft-Gault) 96.1 BUN/Creatinine Ratio 35 (6-20) Glucose Level 81 mg/dL (70-99) Calcium Level 8.3 mg/dL (8.5-10.1) Total Bilirubin 0.7 mg/dL (0.2-1.0) Aspartate Amino Transf (AST/SGOT) 34 U/L (15-37) Alanine Aminotransferase (ALT/SGPT) 124 U/L (16-63) Alkaline Phosphatase 61 U/L (46-116) Total Protein 5.9 g/dL (6.4-8.2) Albumin 2.6 g/dL (3.4-5.0) Albumin/Globulin Ratio 0.8 (1.0-1.7) Medications Active Scripts Medications Dose Route/Sig Max Daily Dose Days Date Category Dose Instructions Atorvastatin Calcium 10 Mg Tablet 1 Tab PO DAILY 06/22/21 Reported Losartan Potassium 100 Mg Tablet 100 Mg PO DAILY 06/22/21 Reported Hydrochlorothiazide Capsule (Hydrochlorothiazide) 12.5 Mg Capsule 12.5 Mg PO DAILY 06/22/21 Reported Omeprazole 20 Mg Tablet.dr 1 Tab PO DAILY 06/22/21 Reported Take 30 minutes before meal Terazosin Hcl 5 Mg Capsule 1 Cap PO QHS PRN 06/22/21 Reported Impression . IMPRESSION: 1. Acute on chronic respiratory failure-- 2. COVID-[address] revealing no evidence of pulmonary embolism. 4. Chronic obstructive pulmonary disease. 5. Other comorbidities as listed above. 6. Abnormal chest x-ray with diffuse bilateral infiltrates consistent with COVID-19 viral pneumonia Plan . 1. 02 titration to keep sat 90% cxr reviewed Patchy bilateral parenchymal airspace opacities are marginally improved compared to 06/18/2021. he is 15 lpm nrb but sat is 99% asked rn to start 02 titration 2. steroids. Dexamethasone to be discontinued on June 29 3. S/P remdesivir and tocilizumab 4. completed course of antibiotics 5. lovenox for dvt prophylaxis 6. pepcid for stress ulcer prophylaxis D/W NAM ROMO MD Jun 28, 2021 07:25
[2021-06-28 07:59] LABS: ALBUMIN 2.5 g/dL (3.4-5.0); ALBUMIN/GLOBULIN RATIO 0.8 (1.0-1.7); CREATININE 0.8 mg/dL (0.7-1.3); GFR 96.1; POTASSIUM 4.5 mmol/L (3.5-5.1); TOTAL BILIRUBIN 0.7 mg/dL (0.2-1.0); TOTAL PROTEIN 5.6 g/dL (6.4-8.2)
--- NOTE | 2021-06-28 08:10 | PDOC ---
PROGRESS NOTES Date of Service: DATE: 06/28/21 TIME: 08:07 Chief Complaint Chief Complaint COVID-19 -status post tocilizumab 06/18/2021 he completed remdesivir. 10 days of steroids completed 06/22/2021. Hypoxemia requiring supp O2 Renal insufficiency Sepsis Acute respiratory failure with hypoxia with COVID-19 complicated by community- acquired pneumonia off antibiotics. Acute lung injury with bilateral infiltrates pneumonia Hyponatremia, acute illness, dry SHADY, acute vasomotor nephropathy Hypercalcemia HTN HLD GERD Plan: continue supportive measures wean off steroids.; Encourage more activity Encourage incentive spirometry Encourage prone Continue with current DVT prophylaxis Follow recommendations from risk assessment consultant History of Present Illness History of Present Illness 06/28/2021 Patient with no acute events reported overnight, he cannot breath through nis nose and is now down to 8 L He desaturates with minimal exertion 06/27/2021 No new complaints still requiring venti mask, no fever or chills reassurance provided. 06/26/2021 No acute events reported overnight, case discussed with nursing staff patient in no acute distress no complaints during my visit this morning patient required unfortunately he had to be put back on nonrebreather mask and his oxygen requirements have increased. Discussed with pulmonary risk assessment consultant at bedside All concerns addressed to the best of my abilities 06/25/2021 Patient seen and examined Currently on 7 L of oxygen Discussed with RN Chart reviewed Afebrile overnight. On Vapotherm 20 L/min 55% FiO2 with saturations 95%. Another solid bowel movement appetite is stable. WBC 18. ALT and AST trending upward minimally. He has if he still contagious and when he can get vaccinated. Overall he is very weak today. CC time 30 minutes 06/23: Afebrile overnight. On Vapotherm 25 L/min 70% FiO2 30 saturations 97%. Stools have firmed up. Good appetite. WBC trended upward. 06/22: WBC 16.4. On Vapotherm 30 L/min 80% FiO2. Saturations 91%. He removed his Vapotherm with O2 sats down to the 50s. Having some loose stools. Increased appetite. 06/21: Patient evaluated examined at bedside. Still requiring Vapotherm in the ICU. Continue current COVID treatments. Wean oxygen as tolerated. 06/20: Patient evaluated examined at bedside. Requiring Vapotherm still saturations low 90s. He will need ICU admission. Continue COVID treatment. Plan of care discussed with bedside RN. 06/19: Patient evaluated and examined at bedside. He was on 15 L nonrebreather and Vapotherm however Vapotherm was not even in his nose and he was saturating well. I woke him sleep he had no complaints. Continue current plan. 06/18: Patient seen and examined. He is on 100% Non-rebreather mask. 12L O2 per NC 06/17: Patient seen and examined at bedside. Patient reports feeling about the same as yesterday. 06/16: Patient seen and examined. He is on 100% rebreather. He is getting day 4 remdesivir today at 17 06/15: Patient seen and examined. He is currently on a 100% nonrebreather HPI: Mr Jasso is a 64-year-old man with past medical history HTN, HLD, GERD, who presents to the ER with complaints of shortness of breath since day before admission He reports "cold-like symptoms "over the past 8 days prior to presentation. He went to an urgent care, was diagnosed with COVID-19 on 06/12/2021. He was sent home with a a home oxygen monitor and was told to come back to the ED if his O2 saturation dropped below 90. At home his oxygen saturations were reading in the 80s, so he came to the ER for further evaluation. Labs on admission showed WBC 14.3, sodium 129, BUN 31, creatinine 1.5, CBG 164, AST 45, ALT 47. CTA chest showed no evidence of pulmonary embolus, but patchy groundglass opacities throughout both lungs consistent with COVID-19 pneumonitis, mild mediastinal lymphadenopathy, and coronary artery calcifications. He has not been vaccinated against COVID-19. He was given IV fluids, Rocephin, and doxycycline in the ED. Admitted patient for further medical management. Vitals Vitals Vital Signs Date Time Temp Pulse Resp B/P (MAP) Pulse Ox O2 Delivery O2 Flow Rate FiO2 06/28/21 03:00 98.3 80 18 127/72 (90) 96 NonRebreather Mask 15.0 98.3 Physical Exam Physical Exam GENERAL: Alert, awake male, appears comfortable. HEART: S1, S2 ABDOMEN: nondistended. DERMATOLOGIC: no generalized rash. NEUROLOGIC: Alert and awake Lungs clear skin nad General: Alert, Oriented X3, Cooperative, mild distress Heart: Regular rate, Normal S1 Abdomen: Normal bowel sounds Extremities: No clubbing, No edema Skin: No breakdown Assessment and Plan Assessmemt and Plan Problems Medical Problems: (1) Bandemia Status: Acute (2) COVID-19 Status: Acute (3) Hypoxemia requiring supplemental oxygen Status: Acute (4) Renal insufficiency Status: Acute (5) Sepsis Status: Acute Comment Review of Relevant I have reviewed the following items alessia (where applicable) has been applied. Labs Laboratory Tests Test 06/27/21 06:00 Sodium Level 136 mmol/L (136-145) Potassium Level 5.0 mmol/L (3.5-5.1) Chloride Level 102 mmol/L (98-107) Carbon Dioxide Level 27 mmol/L (21-32) Anion Gap 7 (6-14) Blood Urea Nitrogen 28 mg/dL (8-26) Creatinine 0.8 mg/dL (0.7-1.3) Estimated GFR (Cockcroft-Gault) 96.1 BUN/Creatinine Ratio 35 (6-20) Glucose Level 81 mg/dL (70-99) Calcium Level 8.3 mg/dL (8.5-10.1) Total Bilirubin 0.7 mg/dL (0.2-1.0) Aspartate Amino Transf (AST/SGOT) 34 U/L (15-37) Alanine Aminotransferase (ALT/SGPT) 124 U/L (16-63) Alkaline Phosphatase 61 U/L (46-116) Total Protein 5.9 g/dL (6.4-8.2) Albumin 2.6 g/dL (3.4-5.0) Albumin/Globulin Ratio 0.8 (1.0-1.7) Medications Current Medications Sodium Chloride 1,000 ml @ 1,000 mls/hr 1X ONCE IV Last administered on 06/13/21at 15:00; Start 06/13/21 at 15:30; Stop 06/13/21 at 16:29; Status DC Iohexol (Omnipaque 350 Mg/ml) 100 ml 1X ONCE IV Last administered on 06/13/21at 16:19; Start 06/13/21 at 16:00; Stop 06/13/21 at 16:01; Status DC Info (CONTRAST GIVEN -- Rx MONITORING) 1 each PRN DAILY PRN MC SEE COMMENTS; Start 06/13/21 at 16:00; Stop 06/15/21 at 15:59; Status DC Ondansetron HCl (Zofran) 4 mg PRN Q6HRS PRN IVP NAUSEA/VOMITING; Start 06/13/21 at 17:00 Al Hydroxide/Mg Hydroxide (Mylanta Plus Xs) 30 ml PRN Q3HRS PRN PO HEARTBURN / GAS, 2ND CHOICE; Start 06/13/21 at 17:00 Calcium Carbonate/ Glycine (Tums) 500 mg PRN Q3HRS PRN PO UPSET STOMACH Last administered on 06/20/21at 17:19; Start 06/13/21 at 17:00 Zolpidem Tartrate (Ambien) 5 mg PRN QHS PRN PO INSOMNIA, MAY REPEAT IN 1HR; Start 06/13/21 at 17:00 Acetaminophen/ Hydrocodone Bitart (Lortab 5/325) 1 tab PRN Q4HRS PRN PO PAIN; Start 06/13/21 at 17:00 Acetaminophen (Tylenol) 650 mg PRN Q6HRS PRN PO Headaches, Temp > 101.5F Last administered on 06/17/21at 11:50; Start 06/13/21 at 17:00 Magnesium Hydroxide (Milk Of Magnesia) 2,400 mg PRN Q12HR PRN PO CONSTIPATION; Start 06/13/21 at 17:00 Enoxaparin Sodium (Lovenox 40mg Syringe) 40 mg Q24H SQ Last administered on 06/20/21at 20:08; Start 06/13/21 at 21:00; Stop 06/21/21 at 11:27; Status DC Loperamide HCl (Imodium) 2 mg PRN Q15MIN PRN PO DIARRHEA Last administered on 06/22/21at 10:31; Start 06/13/21 at 17:00 Tizanidine HCl (Zanaflex) 4 mg PRN Q8HRS PRN PO MUSCLE SPASMS; Start 06/13/21 at 17:00 Benzonatate (Tessalon Perle) 100 mg PRN Q8HRS PRN PO COUGH Last administered on 06/26/21at 08:58; Start 06/13/21 at 17:00 Ascorbic Acid (Vitamin C) 500 mg BID PO Last administered on 06/27/21at 09:19; Start 06/13/21 at 21:00; Stop 06/27/21 at 20:59; Status DC Zinc Sulfate (Orazinc) 440 mg DAILY PO Last administered on 06/27/21at 09:19; Start 06/13/21 at 18:00; Stop 06/28/21 at 17:59 Throat Lozenges (Cepacol Sore Throat Lozenge) 1 iwona PRN Q2HRS PRN PO SORE THROAT; Start 06/13/21 at 17:00 Doxycycline Hyclate (Vibra-Tab) 100 mg BID PO ; Start 06/13/21 at 21:00; Stop 06/13/21 at 17:27; Status DC Ceftriaxone Sodium (Rocephin) 1 gm DAILY IVP ; Start 06/13/21 at 18:00; Stop 06/13/21 at 17:27; Status DC Albuterol Sulfate (Ventolin Hfa) 2 puff PRN Q4HRS PRN INH SHORTNESS OF BREATH; Start 06/13/21 at 17:30 Remdesivir 200 mg/ Sodium Chloride 210 ml @ 210 mls/hr 1X ONCE IV Last administered on 06/13/21at 20:42; Start 06/13/21 at 19:00; Stop 06/13/21 at 19:59; Status DC Remdesivir 100 mg/ Sodium Chloride 230 ml @ 460 mls/hr Q24H IV Last administ ered on 06/17/21at 20:42; Start 06/14/21 at 19:00; Stop 06/17/21 at 19:29; Status DC Hydralazine HCl (Apresoline Inj) 10 mg PRN Q4HRS PRN IVP HYPERTENSION; Start 06/13/21 at 17:30 Ceftriaxone Sodium (Rocephin) 1 gm DAILY IVP Last administered on 06/18/21at 10:20; Start 06/14/21 at 09:00; Stop 06/19/21 at 08:59; Status DC Doxycycline Hyclate (Vibra-Tab) 100 mg BID PO Last administered on 06/18/21at 20:57; Start 06/14/21 at 09:00; Stop 06/19/21 at 08:59; Status DC Famotidine (Pepcid) 20 mg PRN BID PRN PO HEARTBURN / GAS Last administered on 06/26/21at 08:57; Start 06/13/21 at 17:30 Dexamethasone Sodium Phosphate (Decadron) 6 mg DAILY IVP Last administered on 06/22/21 08:27; Start 06/14/21 at 09:00; Stop 06/23/21 at 08:10; Status DC Dexamethasone Sodium Phosphate (Decadron) 6 mg 1X ONCE IVP Last administered on 06/13/21at 20:44; Start 06/13/21 at 20:00; Stop 06/13/21 at 20:01; Status DC Lactobacillus Rhamnosus (Culturelle) 1 cap BID PO Last administered on 06/27/21 21:21; Start 06/14/21 at 21:00 Sterile Water (WATER for RESP) 2,000 ml CONT PRN INH VIA VAPOTHERM DEVICE Last administered on 06/23/21 08:06; Start 06/18/21 at 18:30 Tocilizumab 600 mg/Sodium Chloride 100 ml @ 100 mls/hr 1X ONCE IV Last administered on 06/18/21at 21:00; Start 06/18/21 at 20:00; Stop 06/18/21 at 20:59; Status DC Enoxaparin Sodium (Lovenox 40mg Syringe) 40 mg Q12HR SQ Last administered on 06/27/21 21:21; Start 06/21/21 at 12:00 Guaifenesin (Robitussin Dm) 10 ml PRN Q6HRS PRN PO COUGH- 1st choice Last administered on 06/26/21 08:57; Start 06/22/21 at 09:45 Dexamethasone (Decadron) 2 mg DAILYWBKFT PO Last administered on 06/24/21at 08:46; Start 06/24/21 at 08:00; Stop 06/25/21 at 05:43; Status DC Dexamethasone (Decadron) 2 mg DAILYWBKFT PO Last administered on 06/26/21 08:57; Start 06/25/21 at 08:00; Stop 06/26/21 at 09:55; Status DC Dexamethasone (Decadron) 6 mg DAILYWBKFT PO Last administered on 06/27/21 09:20; Start 06/27/21 at 08:00 Dexamethasone (Decadron) 4 mg 1X ONCE PO Last administered on 06/26/21at 10:41; Start 06/26/21 at 10:00; Stop 06/26/21 at 10:01; Status DC Sodium Chloride 1,000 ml @ 75 mls/hr [id number] IV Last administered on 06/27/21at 16:49; Start 06/26/21 at 12:30 Active Scripts Active Reported Atorvastatin Calcium 10 Mg Tablet 1 Tab PO DAILY Losartan Potassium 100 Mg Tablet 100 Mg PO DAILY Hydrochlorothiazide Capsule (Hydrochlorothiazide) 12.5 Mg Capsule 12.5 Mg PO DAILY Omeprazole 20 Mg Tablet.dr 1 Tab PO DAILY Take 30 minutes before meal Terazosin Hcl 5 Mg Capsule 1 Cap PO QHS PRN Vitals/I & O Vital Sign - Last 24 Hours 06/27/21 06/27/21 06/27/21 06/27/21 11:00 15:00 19:00 20:15 Temp 97.7 97.9 97.9 97.7 97.9 97.9 Pulse 90 98 83 Resp 18 18 17 B/P (MAP) 123/63 (83) 132/51 (78) 116/58 (77) Pulse Ox 97 96 96 O2 Delivery Nasal Cannula Nasal Cannula NonRebreather Mask Non-Rebreather O2 Flow Rate 15.0 15.0 15.0 15.0 06/27/21 06/28/21 23:00 03:00 Temp 98.1 98.3 98.1 98.3 Pulse 82 80 Resp 17 18 B/P (MAP) 120/60 (80) 127/72 (90) Pulse Ox 97 96 O2 Delivery NonRebreather Mask NonRebreather Mask O2 Flow Rate 15.0 15.0 Intake and Output 06/27/21 06/27/21 06/28/21 15:00 23:00 07:00 Intake Total 340 ml 1000 ml Output Total 200 ml Balance 340 ml 800 ml Nutrition Consultation Dietary Evaluation: Recommendations by RD: Dietary education by RD, Increase Calorie Intake, Protein supplementation Comments: pt likes sweets per RN, pt is a pickey eater will continue to send ensure pudding and magic cup oral nutrition supplements bid Expected Outcomes/Goals: to meet >75% est nutr needs- goal ongoing Malnutrition Findings: Body Fat Depletion (Non Severe: Mod to Severe Weight Status: Appropriate Justicifation of Admission Dx: Justifications for Admission: Justification of Admission Dx: Yes Comminuty Aquired Pneumonia: Hypoxemia DOROTHY HERBERT MD Jun 28, 2021 08:10
[2021-06-28] MEDS: LACTOBACILLUS RHAMNOSUS GG 1 CAPSULE. PO SCH ×2 (09:03→20:47)
[2021-06-28] MEDS: ZINC SULFATE 220 MG CAPSULE. PO SCH (09:03)
[2021-06-28] MEDS: DEXAMETHASONE 4 MG TABLET PO SCH (09:04)
[2021-06-28] MEDS: ENOXAPARIN 40 MG/0.4 ML SYRINGE. SQ SCH ×2 (09:04→20:47)
[2021-06-28 11:00] VITALS: BP 109/59
[2021-06-28 15:00] VITALS: BP 123/60
[2021-06-28 19:00] VITALS: BP 117/60
[2021-06-28 23:00] VITALS: BP 125/68
[2021-06-29 03:00] VITALS: BP 117/65
[2021-06-29 07:00] VITALS: BP 124/68
[2021-06-29] MEDS: DEXAMETHASONE 4 MG TABLET PO SCH (07:52)
[2021-06-29] MEDS: LACTOBACILLUS RHAMNOSUS GG 1 CAPSULE. PO SCH ×2 (09:46→21:20)
[2021-06-29] MEDS: ENOXAPARIN 40 MG/0.4 ML SYRINGE. SQ SCH ×2 (09:47→21:21)
[2021-06-29 11:00] VITALS: BP 109/64
--- NOTE | 2021-06-29 12:33 | PDOC ---
[facility] PROGRESS NOTE Date of Service DOS: DATE: 06/29/21 TIME: 12:31 Chief Complaint Chief Complaint COVID-19 -status post tocilizumab 06/18/2021 he completed remdesivir. 10 days of steroids completed 06/22/2021. Hypoxemia requiring supp O2 Renal insufficiency Sepsis Acute respiratory failure with hypoxia with COVID-19 complicated by community- acquired pneumonia off antibiotics. Acute lung injury with bilateral infiltrates pneumonia Hyponatremia, acute illness, dry SHADY, acute vasomotor nephropathy Hypercalcemia HTN HLD GERD Plan: continue supportive measures wean off steroids.; Encourage more activity Encourage incentive spirometry Encourage prone Continue with current DVT prophylaxis Follow recommendations from creative consultant History of Present Illness History of Present Illness 06/29 Patient evaluated and examined at bedside. Was still requiring 10 L nonrebreather still having desaturation with minimal effort. Continue COVID treatment. We will follow pulmonary recommendations. Wean oxygen as tolerated. Plan of care discussed with bedside RN. 06/28/2021 Patient with no acute events reported overnight, he cannot breath through nis nose and is now down to 8 L He desaturates with minimal exertion 06/27/2021 No new complaints still requiring venti mask, no fever or chills reassurance provided. 06/26/2021 No acute events reported overnight, case discussed with nursing staff patient in no acute distress no complaints during my visit this morning patient required unfortunately he had to be put back on nonrebreather mask and his oxygen requirements have increased. Discussed with pulmonary creative consultant at bedside All concerns addressed to the best of my abilities 06/25/2021 Patient seen and examined Currently on 7 L of oxygen Discussed with RN Chart reviewed Afebrile overnight. On Vapotherm 20 L/min 55% FiO2 with saturations 95%. Another solid bowel movement appetite is stable. WBC 18. ALT and AST trending upward minimally. He has if he still contagious and when he can get vaccinated. Overall he is very weak today. CC time 30 minutes 06/23: Afebrile overnight. On Vapotherm 25 L/min 70% FiO2 30 saturations 97%. Stools have firmed up. Good appetite. WBC trended upward. 06/22: WBC 16.4. On Vapotherm 30 L/min 80% FiO2. Saturations 91%. He removed his Vapotherm with O2 sats down to the 50s. Having some loose stools. Increased appetite. 06/21: Patient evaluated examined at bedside. Still requiring Vapotherm in the ICU. Continue current COVID treatments. Wean oxygen as tolerated. 06/20: Patient evaluated examined at bedside. Requiring Vapotherm still saturations low 90s. He will need ICU admission. Continue COVID treatment. Pl an of care discussed with bedside RN. 06/19: Patient evaluated and examined at bedside. He was on 15 L nonrebreather and Vapotherm however Vapotherm was not even in his nose and he was saturating well. I woke him sleep he had no complaints. Continue current plan. 06/18: Patient seen and examined. He is on 100% Non-rebreather mask. 12L O2 per NC 06/17: Patient seen and examined at bedside. Patient reports feeling about the same as yesterday. 06/16: Patient seen and examined. He is on 100% rebreather. He is getting day 4 remdesivir today at 17 06/15: Patient seen and examined. He is currently on a 100% nonrebreather HPI: Mr Jasso is a 64-year-old man with past medical history HTN, HLD, GERD, who presents to the ER with complaints of shortness of breath since day before admission He reports "cold-like symptoms "over the past 8 days prior to presentation. He went to an urgent care, was diagnosed with COVID-19 on 06/12/2021. He was sent home with a a home oxygen monitor and was told to come back to the ED if his O2 saturation dropped below 90. At home his oxygen saturations were reading in the 80s, so he came to the ER for further braulio luation. Labs on admission showed WBC 14.3, sodium 129, BUN 31, creatinine 1.5, CBG 164, AST 45, ALT 47. CTA chest showed no evidence of pulmonary embolus, but patchy groundglass opacities throughout both lungs consistent with COVID-19 pneumonitis, mild mediastinal lymphadenopathy, and coronary artery calcifications. He has not been vaccinated against COVID-19. He was given IV fluids, Rocephin, and doxycycline in the ED. Admitted patient for further medical management. Vitals/I&O Vitals/I&O: Vital Signs Date Time Temp Pulse Resp B/P (MAP) Pulse Ox O2 Delivery O2 Flow Rate FiO2 06/29/21 11:00 98.5 106 18 109/64 (79) 91 NonRebreather Mask 10.0 98.5 I & O 06/28/21 06/28/21 06/29/21 15:00 23:00 07:00 Intake Total 500 ml Output Total 1400 ml 2200 ml Balance -1400 ml -1700 ml Physical Exam Physical Exam: GENERAL: Alert, awake male, appears comfortable. HEART: S1, S2 ABDOMEN: nondistended. DERMATOLOGIC: no generalized rash. NEUROLOGIC: Alert and awake Lungs clear skin nad General: Alert, Oriented X3, Cooperative, mild distress Heart: Regular rate, Normal S1 Abdomen: Normal bowel sounds Extremities: No clubbing, No edema Skin: No breakdown Assessment and Plan Assessmemt and Plan Problems Medical Problems: (1) Bandemia Status: Acute (2) COVID-19 Status: Acute (3) Hypoxemia requiring supplemental oxygen Status: Acute (4) Renal insufficiency Status: Acute (5) Sepsis Status: Acute Comment Review of Relevant I have reviewed the following items alessia (where applicable) has been applied. Justifications for Admission General Conditions Other justification for admit: Respiratory failure with hypoxia, COVID-19 Other Justification MARKUS BRIGHT MD Jun 29, 2021 12:33
--- NOTE | 2021-06-29 13:14 | PDOC ---
PULMONARY PROGRESS NOTES DATE: 06/29/21 TIME: 13:13 Subjective Patient continues to be short of breath with minimal activity currently on 10 L of oxygen Vitals Vital Signs Date Time Temp Pulse Resp B/P (MAP) Pulse Ox O2 Delivery O2 Flow Rate FiO2 06/29/21 11:00 98.5 106 18 109/64 (79) 91 NonRebreather Mask 10.0 98.5 Comments no distress nc at rrr no accessory muscle use no paradoixcal abd motion no rash Labs Laboratory Tests Test 06/28/21 06:50 Sodium Level 136 mmol/L (136-145) Potassium Level 4.5 mmol/L (3.5-5.1) Chloride Level 101 mmol/L (98-107) Carbon Dioxide Level 29 mmol/L (21-32) Anion Gap 6 (6-14) Blood Urea Nitrogen 23 mg/dL (8-26) Creatinine 0.8 mg/dL (0.7-1.3) Estimated GFR (Cockcroft-Gault) 96.1 BUN/Creatinine Ratio 29 (6-20) Glucose Level 75 mg/dL (70-99) Calcium Level 8.0 mg/dL (8.5-10.1) Total Bilirubin 0.7 mg/dL (0.2-1.0) Aspartate Amino Transf (AST/SGOT) 33 U/L (15-37) Alanine Aminotransferase (ALT/SGPT) 114 U/L (16-63) Alkaline Phosphatase 56 U/L (46-116) Total Protein 5.6 g/dL (6.4-8.2) Albumin 2.5 g/dL (3.4-5.0) Albumin/Globulin Ratio 0.8 (1.0-1.7) Medications Active Scripts Medications Dose Route/Sig Max Daily Dose Days Date Category Dose Instructions Atorvastatin Calcium 10 Mg Tablet 1 Tab PO DAILY 06/22/21 Reported Losartan Potassium 100 Mg Tablet 100 Mg PO DAILY 06/22/21 Reported Hydrochlorothiazide Capsule (Hydrochlorothiazide) 12.5 Mg Capsule 12.5 Mg PO DAILY 06/22/21 Reported Omeprazole 20 Mg Tablet.dr 1 Tab PO DAILY 06/22/21 Reported Take 30 minutes before meal Terazosin Hcl 5 Mg Capsule 1 Cap PO QHS PRN 06/22/21 Reported Impression . IMPRESSION: 1. Acute on chronic respiratory failure-- 2. COVID-[address] revealing no evidence of pulmonary embolism. 4. Chronic obstructive pulmonary disease. 5. Other comorbidities as listed above. 6. Abnormal chest x-ray with diffuse bilateral infiltrates consistent with COVID-19 viral pneumonia Plan . Updated 06/29 Continue oxygen supplementation Finish course of dexamethasone Status post remdesivir and tocilizumab Home when oxygen requirements diminished THELMA YIP MD Jun 29, 2021 13:14
[2021-06-29 15:00] VITALS: BP 125/64
[2021-06-29 19:00] VITALS: BP 138/69
[2021-06-29 22:55] VITALS: BP 115/62
[2021-06-30 02:38] VITALS: BP 109/64
[2021-06-30 07:00] VITALS: BP 103/61
--- NOTE | 2021-06-30 08:30 | PDOC ---
PULMONARY PROGRESS NOTES DATE: 06/30/21 TIME: 08:30 Subjective Patient feels better, not more short of breath today, sitting up in chair When he transfers his O2 saturation drops to the low 80s Vitals Vital Signs Date Time Temp Pulse Resp B/P (MAP) Pulse Ox O2 Delivery O2 Flow Rate FiO2 06/30/21 02:38 96.9 86 16 109/64 (79) 98 NonRebreather Mask 15.0 96.9 Comments no distress nc at rrr no accessory muscle use no paradoixcal abd motion no rash Medications Active Scripts Medications Dose Route/Sig Max Daily Dose Days Date Category Dose Instructions Atorvastatin Calcium 10 Mg Tablet 1 Tab PO DAILY 06/22/21 Reported Losartan Potassium 100 Mg Tablet 100 Mg PO DAILY 06/22/21 Reported Hydrochlorothiazide Capsule (Hydrochlorothiazide) 12.5 Mg Capsule 12.5 Mg PO DAILY 06/22/21 Reported Omeprazole 20 Mg Tablet.dr 1 Tab PO DAILY 06/22/21 Reported Take 30 minutes before meal Terazosin Hcl 5 Mg Capsule 1 Cap PO QHS PRN 06/22/21 Reported Impression . IMPRESSION: 1. Acute on chronic respiratory failure-- 2. COVID-[address] revealing no evidence of pulmonary embolism. 4. Chronic obstructive pulmonary disease. 5. Other comorbidities as listed above. 6. Abnormal chest x-ray with diffuse bilateral infiltrates consistent with COVID-19 viral pneumonia Plan . Updated 06/30 Continue oxygen supplementation Up to chair Dexamethasone Status post remdesivir and tocilizumab updated 06/29 Continue oxygen supplementation Finish course of dexamethasone Status post remdesivir and tocilizumab Home when oxygen requirements diminished THELMA YIP MD Jun 30, 2021 08:30
[2021-06-30] MEDS: LACTOBACILLUS RHAMNOSUS GG 1 CAPSULE. PO SCH ×2 (09:56→20:22)
[2021-06-30] MEDS: ENOXAPARIN 40 MG/0.4 ML SYRINGE. SQ SCH (09:56)
[2021-06-30 11:00] VITALS: BP 131/65
[2021-06-30 12:25] LABS: BASO # 0.2 x10^3/uL (0.0-0.2); BASO % 1 % (0-3); EOS # 0.4 x10^3/uL (0.0-0.7); EOS % 2 % (0-3); HEMATOCRIT 42.7 % (39.0-53.0); LYMPH # 3.5 x10^3/uL (1.0-4.8); LYMPH % 20 % (24-48); MEAN CORPUSCULAR HEMOGLOBIN 32 pg (25-35); MEAN CORPUSCULAR HGB CONC 33 g/dL (31-37); MEAN CORPUSCULAR VOLUME 98 fL (79-100); MONO # 1.4 x10^3/uL (0.0-1.1); MONO % 8 % (0-9); NEUT # 12.2 x10^3/uL (1.8-7.7); NEUT % 69 % (31-73); PLATELET COUNT 407 x10^3/uL (140-400); RED BLOOD COUNT 4.38 x10^6/uL (4.30-5.70); RED CELL DISTRIBUTION WIDTH 12.9 % (11.5-14.5); WHITE BLOOD COUNT 17.7 x10^3/uL (4.0-11.0)
[2021-06-30 12:45] LABS: ALBUMIN 2.7 g/dL (3.4-5.0); ALBUMIN/GLOBULIN RATIO 0.8 (1.0-1.7); CALCIUM 8.3 mg/dL (8.5-10.1); CREATININE 0.8 mg/dL (0.7-1.3); GFR 96.1; POTASSIUM 4.1 mmol/L (3.5-5.1); TOTAL BILIRUBIN 0.6 mg/dL (0.2-1.0)
--- NOTE | 2021-06-30 13:22 | PDOC ---
[employer] PROGRESS NOTE Date of Service DOS: DATE: 06/30/21 TIME: 13:21 Chief Complaint Chief Complaint COVID-19 -status post tocilizumab 06/18/2021 he completed remdesivir. 10 days of steroids completed 06/22/2021. Hypoxemia requiring supp O2 Renal insufficiency Sepsis Acute respiratory failure with hypoxia with COVID-19 complicated by community- acquired pneumonia off antibiotics. Acute lung injury with bilateral infiltrates pneumonia Hyponatremia, acute illness, dry SHADY, acute vasomotor nephropathy Hypercalcemia HTN HLD GERD Plan: continue supportive measures wean off steroids.; Encourage more activity Encourage incentive spirometry Encourage prone Continue with current DVT prophylaxis Follow recommendations from network systems consultant History of Present Illness History of Present Illness 06/30 Patient evaluated and examined at bedside. He was requiring 15 L nonrebreather. When I examined him patient said he really was not short of breath except with exertion. Saturating mid 90s. Turned down his nonrebreather to around 12 L and he was able to maintain his saturations. Informed him weaning the oxygen may be a slow process. He understands. Continue COVID treatments. Pulmonary following. Plan of care discussed with bedside RN. 06/29 Patient evaluated and examined at bedside. Was still requiring 10 L nonrebreather still having desaturation with minimal effort. Continue COVID t reatment. We will follow pulmonary recommendations. Wean oxygen as tolerated. Plan of care discussed with bedside RN. 06/28/2021 Patient with no acute events reported overnight, he cannot breath through nis nose and is now down to 8 L He desaturates with minimal exertion 06/27/2021 No new complaints still requiring venti mask, no fever or chills reassurance provided. 06/26/2021 No acute events reported overnight, case discussed with nursing staff patient in no acute distress no complaints during my visit this morning patient required unfortunately he had to be put back on nonrebreather mask and his oxygen requirements have increased. Discussed with pulmonary network systems consultant at bedside All concerns addressed to the best of my abilities 06/25/2021 Patient seen and examined Currently on 7 L of oxygen Discussed with RN Chart reviewed Afebrile overnight. On Vapotherm 20 L/min 55% FiO2 with saturations 95%. Another solid bowel movement appetite is stable. WBC 18. ALT and AST trending upward minimally. He has if he still contagious and when he can get vaccinated. Overall he is very weak today. CC time 30 minutes 06/23: Afebrile overnight. On Vapotherm 25 L/min 70% FiO2 30 saturations 97%. Stools have firmed up. Good appetite. WBC trended upward. 06/22: WBC 16.4. On Vapotherm 30 L/min 80% FiO2. Saturations 91%. He removed his Vapotherm with O2 sats down to the 50s. Having some loose stools. Increased appetite. 06/21: Patient evaluated examined at bedside. Still requiring Vapotherm in the I [facility]. Continue current COVID treatments. Wean oxygen as tolerated. 06/20: Patient evaluated examined at bedside. Requiring Vapotherm still saturations low 90s. He will need ICU admission. Continue COVID treatment. Plan of care discussed with bedside RN. 06/19: Patient evaluated and examined at bedside. He was on 15 L nonrebreather and Vapotherm however Vapotherm was not even in his nose and he was saturating well. I woke him sleep he had no complaints. Continue current plan. 06/18: Patient seen and examined. He is on 100% Non-rebreather mask. 12L O2 per NC 06/17: Patient seen and examined at bedside. Patient reports feeling about the same as yesterday. 06/16: Patient seen and examined. He is on 100% rebreather. He is getting day 4 remdesivir today at 17 06/15: Patient seen and examined. He is currently on a 100% nonrebreather HPI: Mr Jasso is a 64-year-old man with past medical history HTN, HLD, GERD, who presents to the ER with complaints of shortness of breath since day before admission He reports "cold-like symptoms "over the past 8 days prior to presentation. He went to an urgent care, was diagnosed with COVID-19 on 06/12/2021. He was sent home with a a home oxygen monitor and was told to come back to the ED if his O2 saturation dropped below 90. At home his oxygen saturations were reading in the 80s, so he came to the ER for further evaluation. Labs on admission showed WBC 14.3, sodium 129, BUN 31, creatinine 1.5, CBG 164, AST 45, ALT 47. CTA chest showed no evidence of pulmonary embolus, but patchy groundglass opacities throughout both lungs consistent with COVID-19 pneumonitis, mild mediastinal lymphadenopathy, and coronary artery calcifications. He has not been vaccinated against COVID-19. He was given IV fluids, Rocephin, and doxycycline in the ED. Admitted patient for further medical management. Vitals/I&O Vitals/I&O: Vital Signs Date Time Temp Pulse Resp B/P (MAP) Pulse Ox O2 Delivery O2 Flow Rate FiO2 06/30/21 11:00 98.5 101 20 131/65 (87) 97 NonRebreather Mask 15.0 98.5 I & O 06/29/21 06/29/21 06/30/21 15:00 23:00 07:00 Intake Total 0 ml Output Total 450 ml 200 ml 450 ml Balance -450 ml -200 ml -450 ml Physical Exam Physical Exam: GENERAL: Alert, awake male, appears comfortable. HEART: S1, S2 ABDOMEN: nondistended. DERMATOLOGIC: no generalized rash. NEUROLOGIC: Alert and awake Lungs clear skin nad General: Alert, Oriented X3, Cooperative, mild distress Heart: Regular rate, Normal S1 Abdomen: Normal bowel sounds Extremities: No clubbing, No edema Skin: No breakdown Labs Labs: Laboratory Tests Test 06/30/21 12:05 White Blood Count 17.7 x10^3/uL (4.0-11.0) Red Blood Count 4.38 x10^6/uL (4.30-5.70) Hemoglobin 14.0 g/dL (13.0-17.5) Hematocrit 42.7 % (39.0-53.0) Mean Corpuscular Volume 98 fL (79-100) Mean Corpuscular Hemoglobin 32 pg (25-35) Mean Corpuscular Hemoglobin Concent 33 g/dL (31-37) Red Cell Distribution Width 12.9 % (11.5-14.5) Platelet Count 407 x10^3/uL (140-400) Neutrophils (%) (Auto) 69 % (31-73) Lymphocytes (%) (Auto) 20 % (24-48) Monocytes (%) (Auto) 8 % (0-9) Eosinophils (%) (Auto) 2 % (0-3) Basophils (%) (Auto) 1 % (0-3) Neutrophils # (Auto) 12.2 x10^3/uL (1.8-7.7) Lymphocytes # (Auto) 3.5 x10^3/uL (1.0-4.8) Monocytes # (Auto) 1.4 x10^3/uL (0.0-1.1) Eosinophils # (Auto) 0.4 x10^3/uL (0.0-0.7) Basophils # (Auto) 0.2 x10^3/uL (0.0-0.2) Sodium Level 135 mmol/L (136-145) Potassium Level 4.1 mmol/L (3.5-5.1) Chloride Level 100 mmol/L (98-107) Carbon Dioxide Level 29 mmol/L (21-32) Anion Gap 6 (6-14) Blood Urea Nitrogen 25 mg/dL (8-26) Creatinine 0.8 mg/dL (0.7-1.3) Estimated GFR (Cockcroft-Gault) 96.1 BUN/Creatinine Ratio 31 (6-20) Glucose Level 118 mg/dL (70-99) Calcium Level 8.3 mg/dL (8.5-10.1) Total Bilirubin 0.6 mg/dL (0.2-1.0) Aspartate Amino Transf (AST/SGOT) 40 U/L (15-37) Alanine Aminotransferase (ALT/SGPT) 114 U/L (16-63) Alkaline Phosphatase 63 U/L (46-116) Total Protein 6.0 g/dL (6.4-8.2) Albumin 2.7 g/dL (3.4-5.0) Albumin/Globulin Ratio 0.8 (1.0-1.7) Assessment and Plan Assessmemt and Plan Problems Medical Problems: (1) Bandemia Status: Acute (2) COVID-19 Status: Acute (3) Hypoxemia requiring supplemental oxygen Status: Acute (4) Renal insufficiency Status: Acute (5) Sepsis Status: Acute Comment Review of Relevant I have reviewed the following items alessia (where applicable) has been applied. Justifications for Admission General Conditions Other justification for admit: Respiratory failure with hypoxia, COVID-19 Other Justification MARKUS BRIGHT MD Jun 30, 2021 13:22
--- NOTE | 2021-06-30 13:30 | RAD ---
EXAM: Chest, single view. HISTORY: Covid 19. Increased oxygen requirement. COMPARISON: None. FINDINGS: A frontal view of the chest is obtained. There is stable diffuse mixed interstitial and иван eolar infiltrate. No significant pleural effusion is seen. There are suspected chronic interstitial c hanges. The heart is normal in size. There is no pneumothorax. IMPRESSION: Stable diffuse mixed interstitial and alveolar infiltrate. Electronically signed by: Nely Damon MD (06/30/2021 1:27 PM) [id number]
[2021-06-30 15:08] VITALS: BP 110/61
[2021-06-30] MEDS ORDERED: METOPROLOL IV PUSH 5 MG/5 ML VIAL. IVP PRN (15:45)
[2021-06-30 19:00] VITALS: BP 113/58
[2021-06-30 23:03] VITALS: BP 112/58
[2021-07-01 03:14] VITALS: BP 115/60
[2021-07-01 07:00] VITALS: BP 121/61
--- NOTE | 2021-07-01 09:16 | PDOC ---
PULMONARY PROGRESS NOTES DATE: 07/01/21 TIME: 09:16 Subjective No new symptoms When he transfers his O2 saturation drops to the low 80s Vitals Vital Signs Date Time Temp Pulse Resp B/P (MAP) Pulse Ox O2 Delivery O2 Flow Rate FiO2 07/01/21 07:00 97.5 86 16 121/61 (81) 95 Venturi Mask 97.5 06/30/21 15:08 15.0 Comments no distress nc at rrr no accessory muscle use no paradoixcal abd motion no rash Labs Laboratory Tests Test 06/30/21 12:05 White Blood Count 17.7 x10^3/uL (4.0-11.0) Red Blood Count 4.38 x10^6/uL (4.30-5.70) Hemoglobin 14.0 g/dL (13.0-17.5) Hematocrit 42.7 % (39.0-53.0) Mean Corpuscular Volume 98 fL (79-100) Mean Corpuscular Hemoglobin 32 pg (25-35) Mean Corpuscular Hemoglobin Concent 33 g/dL (31-37) Red Cell Distribution Width 12.9 % (11.5-14.5) Platelet Count 407 x10^3/uL (140-400) Neutrophils (%) (Auto) 69 % (31-73) Lymphocytes (%) (Auto) 20 % (24-48) Monocytes (%) (Auto) 8 % (0-9) Eosinophils (%) (Auto) 2 % (0-3) Basophils (%) (Auto) 1 % (0-3) Neutrophils # (Auto) 12.2 x10^3/uL (1.8-7.7) Lymphocytes # (Auto) 3.5 x10^3/uL (1.0-4.8) Monocytes # (Auto) 1.4 x10^3/uL (0.0-1.1) Eosinophils # (Auto) 0.4 x10^3/uL (0.0-0.7) Basophils # (Auto) 0.2 x10^3/uL (0.0-0.2) Sodium Level 135 mmol/L (136-145) Potassium Level 4.1 mmol/L (3.5-5.1) Chloride Level 100 mmol/L (98-107) Carbon Dioxide Level 29 mmol/L (21-32) Anion Gap 6 (6-14) Blood Urea Nitrogen 25 mg/dL (8-26) Creatinine 0.8 mg/dL (0.7-1.3) Estimated GFR (Cockcroft-Gault) 96.1 BUN/Creatinine Ratio 31 (6-20) Glucose Level 118 mg/dL (70-99) Calcium Level 8.3 mg/dL (8.5-10.1) Total Bilirubin 0.6 mg/dL (0.2-1.0) Aspartate Amino Transf (AST/SGOT) 40 U/L (15-37) Alanine Aminotransferase (ALT/SGPT) 114 U/L (16-63) Alkaline Phosphatase 63 U/L (46-116) Total Protein 6.0 g/dL (6.4-8.2) Albumin 2.7 g/dL (3.4-5.0) Albumin/Globulin Ratio 0.8 (1.0-1.7) Laboratory Tests Test 06/30/21 12:05 White Blood Count 17.7 x10^3/uL (4.0-11.0) Red Blood Count 4.38 x10^6/uL (4.30-5.70) Hemoglobin 14.0 g/dL (13.0-17.5) Hematocrit 42.7 % (39.0-53.0) Mean Corpuscular Volume 98 fL (79-100) Mean Corpuscular Hemoglobin 32 pg (25-35) Mean Corpuscular Hemoglobin Concent 33 g/dL (31-37) Red Cell Distribution Width 12.9 % (11.5-14.5) Platelet Count 407 x10^3/uL (140-400) Neutrophils (%) (Auto) 69 % (31-73) Lymphocytes (%) (Auto) 20 % (24-48) Monocytes (%) (Auto) 8 % (0-9) Eosinophils (%) (Auto) 2 % (0-3) Basophils (%) (Auto) 1 % (0-3) Neutrophils # (Auto) 12.2 x10^3/uL (1.8-7.7) Lymphocytes # (Auto) 3.5 x10^3/uL (1.0-4.8) Monocytes # (Auto) 1.4 x10^3/uL (0.0-1.1) Eosinophils # (Auto) 0.4 x10^3/uL (0.0-0.7) Basophils # (Auto) 0.2 x10^3/uL (0.0-0.2) Sodium Level 135 mmol/L (136-145) Potassium Level 4.1 mmol/L (3.5-5.1) Chloride Level 100 mmol/L (98-107) Carbon Dioxide Level 29 mmol/L (21-32) Anion Gap 6 (6-14) Blood Urea Nitrogen 25 mg/dL (8-26) Creatinine 0.8 mg/dL (0.7-1.3) Estimated GFR (Cockcroft-Gault) 96.1 BUN/Creatinine Ratio 31 (6-20) Glucose Level 118 mg/dL (70-99) Calcium Level 8.3 mg/dL (8.5-10.1) Total Bilirubin 0.6 mg/dL (0.2-1.0) Aspartate Amino Transf (AST/SGOT) 40 U/L (15-37) Alanine Aminotransferase (ALT/SGPT) 114 U/L (16-63) Alkaline Phosphatase 63 U/L (46-116) Total Protein 6.0 g/dL (6.4-8.2) Albumin 2.7 g/dL (3.4-5.0) Albumin/Globulin Ratio 0.8 (1.0-1.7) Medications Active Scripts Medications Dose Route/Sig Max Daily Dose Days Date Category Dose Instructions Atorvastatin Calcium 10 Mg Tablet 1 Tab PO DAILY 06/22/21 Reported Losartan Potassium 100 Mg Tablet 100 Mg PO DAILY 06/22/21 Reported Hydrochlorothiazide Capsule (Hydrochlorothiazide) 12.5 Mg Capsule 12.5 Mg PO DAILY 06/22/21 Reported Omeprazole 20 Mg Tablet.dr 1 Tab PO DAILY 06/22/21 Reported Take 30 minutes before meal Terazosin Hcl 5 Mg Capsule 1 Cap PO QHS PRN 06/22/21 Reported Impression . IMPRESSION: 1. Acute on chronic respiratory failure-- 2. COVID-[address] revealing no evidence of pulmonary embolism. 4. Chronic obstructive pulmonary disease. 5. Other comorbidities as listed above. 6. Abnormal chest x-ray with diffuse bilateral infiltrates consistent with COVID-19 viral pneumonia Plan . Updated 07/01 Possible 6-minute walk in the a.m. Continue current support Up in chair Nutritional support updated 06/30 Continue oxygen supplementation Up to chair Dexamethasone Status post remdesivir and tocilizumab updated 06/29 Continue oxygen supplementation Finish course of dexamethasone Status post remdesivir and tocilizumab Home when oxygen requirements diminished THELMA YIP MD Jul 01, 2021 09:16
[2021-07-01] MEDS: ENOXAPARIN 40 MG/0.4 ML SYRINGE. SQ SCH (09:56)
[2021-07-01] MEDS: LACTOBACILLUS RHAMNOSUS GG 1 CAPSULE. PO SCH ×2 (09:56→21:30)
[2021-07-01] MEDS: PANTOPRAZOLE 40 MG TABLET.DR. PO SCH (09:56)
[2021-07-01] MEDS: hydroCHLOROthiazide 12.5 MG CAPSULE PO SCH (09:56)
[2021-07-01] MEDS: LOSARTAN POTASSIUM 50 MG TABLET. PO SCH (09:57)
[2021-07-01] MEDS: ATORVASTATIN CALCIUM 10 MG TABLET. PO SCH (09:57)
[2021-07-01 11:00] VITALS: BP 116/51
--- NOTE | 2021-07-01 11:40 | PDOC ---
[employer] PROGRESS NOTE Date of Service DOS: DATE: 07/01/21 TIME: 11:39 Chief Complaint Chief Complaint COVID-19 -status post tocilizumab 06/18/2021 he completed remdesivir. 10 days of steroids completed 06/22/2021. Hypoxemia requiring supp O2 Renal insufficiency Sepsis Acute respiratory failure with hypoxia with COVID-19 complicated by community- acquired pneumonia off antibiotics. Acute lung injury with bilateral infiltrates pneumonia Hyponatremia, acute illness, dry SHADY, acute vasomotor nephropathy Hypercalcemia HTN HLD GERD Plan: continue supportive measures wean off steroids.; Encourage more activity Encourage incentive spirometry Encourage prone Continue with current DVT prophylaxis Follow recommendations from energy sales consultant History of Present Illness History of Present Illness 07/01 Patient evaluated examined at bedside. Still continues to endorse not really being short of breath. On Ventimask. Continue weaning as tolerated. Pulmonary team following. 06/30 Patient evaluated and examined at bedside. He was requiring 15 L nonrebreather. When I examined him patient said he really was not short of breath except with exertion. Saturating mid 90s. Turned down his nonrebreather to around 12 L and he was able to maintain his saturations. Informed him weaning the oxygen may be a slow process. He understands. Continue COVID treatments. Pulmonary following. Plan of care discussed with bedside RN. 06/29 Patient evaluated and examined at bedside. Was still requiring 10 L nonrebreather still having desaturation with minimal effort. Continue COVID treatment. We will follow pulmonary recommendations. Wean oxygen as tolerated. Plan of care discussed with bedside RN. 06/28/2021 Patient with no acute events reported overnight, he cannot breath through nis nose and is now down to 8 L He desaturates with minimal exertion 06/27/2021 No new complaints still requiring venti mask, no fever or chills reassurance provided. 06/26/2021 No acute events reported overnight, case discussed with nursing staff patient in no acute distress no complaints during my visit this morning patient required unfortunately he had to be put back on nonrebreather mask and his oxygen requirements have increased. Discussed with pulmonary energy sales consultant at bedside All concerns addressed to the best of my abilities 06/25/2021 Patient seen and examined Currently on 7 L of oxygen Discussed with RN Chart reviewed Afebrile overnight. On Vapotherm 20 L/min 55% FiO2 with saturations 95%. Another solid bowel movement appetite is stable. WBC 18. ALT and AST trending upward minimally. He has if he still contagious and when he can get vaccinated. Overall he is very weak today. CC time 30 minutes 06/23: Afebrile overnight. On Vapotherm 25 L/min 70% FiO2 30 saturations 97%. S tools have firmed up. Good appetite. WBC trended upward. 06/22: WBC 16.4. On Vapotherm 30 L/min 80% FiO2. Saturations 91%. He removed his Vapotherm with O2 sats down to the 50s. Having some loose stools. Increased appetite. 06/21: Patient evaluated examined at bedside. Still requiring Vapotherm in the ICU. Continue current COVID treatments. Wean oxygen as tolerated. 06/20: Patient evaluated examined at bedside. Requiring Vapotherm still saturations low 90s. He will need ICU admission. Continue COVID treatment. Plan of care discussed with bedside RN. 06/19: Patient evaluated and examined at bedside. He was on 15 L nonrebreather and Vapotherm however Vapotherm was not even in his nose and he was saturating well. I woke him sleep he had no complaints. Continue current plan. 06/18: Patient seen and examined. He is on 100% Non-rebreather mask. 12L O2 per NC 06/17: Patient seen and examined at bedside. Patient reports feeling about the same as yesterday. 06/16: Patient seen and examined. He is on 100% rebreather. He is getting day 4 remdesivir today at 17 06/15: Patient seen and examined. He is currently on a 100% nonrebreather HPI: Mr Jasso is a 64-year-old man with past medical history HTN, HLD, GERD, who presents to the ER with complaints of shortness of breath since day before admission He reports "cold-like symptoms "over the past 8 days prior to presentation. He went to an urgent care, was diagnosed with COVID-19 on 06/12/2021. He was sent home with a a home oxygen monitor and was told to come back to the ED if his O2 saturation dropped below 90. At home his oxygen saturations were reading in the 80s, so he came to the ER for further evaluation. Labs on admission showed WBC 14.3, sodium 129, BUN 31, creatinine 1.5, CBG 164, AST 45, ALT 47. CTA chest showed no evidence of pulmonary embolus, but patchy groundglass opacities throughout both lungs consistent with COVID-19 pneumonitis, mild mediastinal lymphadenopathy, and coronary artery calcifications. He has not been vaccinated against COVID-19. He was given IV fluids, Rocephin, and doxycycline in the ED. Admitted patient for further medical management. Vitals/I&O Vitals/I&O: Vital Signs Date Time Temp Pulse Resp B/P (MAP) Pulse Ox O2 Delivery O2 Flow Rate FiO2 07/01/21 09:57 86 121/61 07/01/21 08:00 Venturi Mask 15.0 07/01/21 07:00 97.5 16 95 97.5 I & O 06/30/21 06/30/21 07/01/21 15:00 23:00 07:00 Intake Total 400 ml Output Total 500 ml 0 ml Balance -100 ml 0 ml Physical Exam Physical Exam: GENERAL: Alert, awake male, appears comfortable. HEART: S1, S2 ABDOMEN: nondistended. DERMATOLOGIC: no generalized rash. NEUROLOGIC: Alert and awake Lungs clear skin nad General: Alert, Oriented X3, Cooperative, mild distress Heart: Regular rate, Normal S1 Abdomen: Normal bowel sounds Extremities: No clubbing, No edema Skin: No breakdown Labs Labs: Laboratory Tests Test 06/30/21 12:05 White Blood Count 17.7 x10^3/uL (4.0-11.0) Red Blood Count 4.38 x10^6/uL (4.30-5.70) Hemoglobin 14.0 g/dL (13.0-17.5) Hematocrit 42.7 % (39.0-53.0) Mean Corpuscular Volume 98 fL (79-100) Mean Corpuscular Hemoglobin 32 pg (25-35) Mean Corpuscular Hemoglobin Concent 33 g/dL (31-37) Red Cell Distribution Width 12.9 % (11.5-14.5) Platelet Count 407 x10^3/uL (140-400) Neutrophils (%) (Auto) 69 % (31-73) Lymphocytes (%) (Auto) 20 % (24-48) Monocytes (%) (Auto) 8 % (0-9) Eosinophils (%) (Auto) 2 % (0-3) Basophils (%) (Auto) 1 % (0-3) Neutrophils # (Auto) 12.2 x10^3/uL (1.8-7.7) Lymphocytes # (Auto) 3.5 x10^3/uL (1.0-4.8) Monocytes # (Auto) 1.4 x10^3/uL (0.0-1.1) Eosinophils # (Auto) 0.4 x10^3/uL (0.0-0.7) Basophils # (Auto) 0.2 x10^3/uL (0.0-0.2) Sodium Level 135 mmol/L (136-145) Potassium Level 4.1 mmol/L (3.5-5.1) Chloride Level 100 mmol/L (98-107) Carbon Dioxide Level 29 mmol/L (21-32) Anion Gap 6 (6-14) Blood Urea Nitrogen 25 mg/dL (8-26) Creatinine 0.8 mg/dL (0.7-1.3) Estimated GFR (Cockcroft-Gault) 96.1 BUN/Creatinine Ratio 31 (6-20) Glucose Level 118 mg/dL (70-99) Calcium Level 8.3 mg/dL (8.5-10.1) Total Bilirubin 0.6 mg/dL (0.2-1.0) Aspartate Amino Transf (AST/SGOT) 40 U/L (15-37) Alanine Aminotransferase (ALT/SGPT) 114 U/L (16-63) Alkaline Phosphatase 63 U/L (46-116) Total Protein 6.0 g/dL (6.4-8.2) Albumin 2.7 g/dL (3.4-5.0) Albumin/Globulin Ratio 0.8 (1.0-1.7) Assessment and Plan Assessmemt and Plan Problems Medical Problems: (1) Bandemia Status: Acute (2) COVID-19 Status: Acute (3) Hypoxemia requiring supplemental oxygen Status: Acute (4) Renal insufficiency Status: Acute (5) Sepsis Status: Acute Comment Review of Relevant I have reviewed the following items alessia (where applicable) has been applied. Medications: Current Medications Medications (Trade) Dose Ordered Sig/Andriy Route PRN Reason Start Time Stop Time Status Last Admin Dose Admin Enoxaparin Sodium (Lovenox 40mg Syringe) 40 mg Q24H SQ 07/01/21 09:00 07/01/21 09:56 Atorvastatin Calcium (Lipitor) 10 mg DAILY PO 07/01/21 09:00 07/01/21 09:57 Hydrochlorothiazide (Microzide) 12.5 mg DAILY PO 07/01/21 09:00 07/01/21 09:56 Losartan Potassium (Cozaar) 100 mg DAILY PO 07/01/21 09:00 07/01/21 09:57 Pantoprazole Sodium (Protonix) 40 mg DAILYAC PO 07/01/21 07:30 07/01/21 09:56 Justifications for Admission General Conditions Other justification for admit: Respiratory failure with hypoxia, COVID-19 Other Justification MARKUS BRIGHT MD Jul 01, 2021 11:40
[2021-07-01 15:00] VITALS: BP 101/43
[2021-07-01 19:00] VITALS: BP 112/55
[2021-07-01 23:02] VITALS: BP 98/56
[2021-07-02 03:05] VITALS: BP 122/56
[2021-07-02 07:00] VITALS: BP 95/57
[2021-07-02] MEDS: PANTOPRAZOLE 40 MG TABLET.DR. PO SCH (07:46)
--- NOTE | 2021-07-02 08:18 | PDOC ---
PULMONARY PROGRESS NOTES DATE: 07/02/21 TIME: 08:18 Subjective No new events patient feels better, not more short of breath today, sitting up in chair When he transfers his O2 saturation drops to the low 80s Vitals Vital Signs Date Time Temp Pulse Resp B/P (MAP) Pulse Ox O2 Delivery O2 Flow Rate FiO2 07/02/21 07:51 Venturi Mask 15.0 07/02/21 03:05 98.0 97 20 122/56 (78) 94 98.0 Comments no distress nc at rrr no accessory muscle use no paradoixcal abd motion no rash Labs Laboratory Tests Test 06/30/21 12:05 White Blood Count 17.7 x10^3/uL (4.0-11.0) Red Blood Count 4.38 x10^6/uL (4.30-5.70) Hemoglobin 14.0 g/dL (13.0-17.5) Hematocrit 42.7 % (39.0-53.0) Mean Corpuscular Volume 98 fL (79-100) Mean Corpuscular Hemoglobin 32 pg (25-35) Mean Corpuscular Hemoglobin Concent 33 g/dL (31-37) Red Cell Distribution Width 12.9 % (11.5-14.5) Platelet Count 407 x10^3/uL (140-400) Neutrophils (%) (Auto) 69 % (31-73) Lymphocytes (%) (Auto) 20 % (24-48) Monocytes (%) (Auto) 8 % (0-9) Eosinophils (%) (Auto) 2 % (0-3) Basophils (%) (Auto) 1 % (0-3) Neutrophils # (Auto) 12.2 x10^3/uL (1.8-7.7) Lymphocytes # (Auto) 3.5 x10^3/uL (1.0-4.8) Monocytes # (Auto) 1.4 x10^3/uL (0.0-1.1) Eosinophils # (Auto) 0.4 x10^3/uL (0.0-0.7) Basophils # (Auto) 0.2 x10^3/uL (0.0-0.2) Sodium Level 135 mmol/L (136-145) Potassium Level 4.1 mmol/L (3.5-5.1) Chloride Level 100 mmol/L (98-107) Carbon Dioxide Level 29 mmol/L (21-32) Anion Gap 6 (6-14) Blood Urea Nitrogen 25 mg/dL (8-26) Creatinine 0.8 mg/dL (0.7-1.3) Estimated GFR (Cockcroft-Gault) 96.1 BUN/Creatinine Ratio 31 (6-20) Glucose Level 118 mg/dL (70-99) Calcium Level 8.3 mg/dL (8.5-10.1) Total Bilirubin 0.6 mg/dL (0.2-1.0) Aspartate Amino Transf (AST/SGOT) 40 U/L (15-37) Alanine Aminotransferase (ALT/SGPT) 114 U/L (16-63) Alkaline Phosphatase 63 U/L (46-116) Total Protein 6.0 g/dL (6.4-8.2) Albumin 2.7 g/dL (3.4-5.0) Albumin/Globulin Ratio 0.8 (1.0-1.7) Medications Active Scripts Medications Dose Route/Sig Max Daily Dose Days Date Category Dose Instructions Atorvastatin Calcium 10 Mg Tablet 1 Tab PO DAILY 06/22/21 Reported Losartan Potassium 100 Mg Tablet 100 Mg PO DAILY 06/22/21 Reported Hydrochlorothiazide Capsule (Hydrochlorothiazide) 12.5 Mg Capsule 12.5 Mg PO DAILY 06/22/21 Reported Omeprazole 20 Mg Tablet. 1 Tab PO DAILY 06/22/21 Reported Take 30 minutes before meal Terazosin Hcl 5 Mg Capsule 1 Cap PO QHS PRN 06/22/21 Reported Impression . IMPRESSION: 1. Acute on chronic respiratory failure-- 2. COVID-[address] revealing no evidence of pulmonary embolism. 4. Chronic obstructive pulmonary disease. 5. Other comorbidities as listed above. 6. Abnormal chest x-ray with diffuse bilateral infiltrates consistent with COVID-19 viral pneumonia Plan . Updated 07/[address] Tan Patient not ready to undergo 6-minute walk Continues to desaturate with exertion THELMA YIP MD Jul 02, 2021 08:18
[2021-07-02] MEDS: hydroCHLOROthiazide 12.5 MG CAPSULE PO SCH (09:00)
[2021-07-02] MEDS: LOSARTAN POTASSIUM 50 MG TABLET. PO SCH (09:00)
[2021-07-02] MEDS: LACTOBACILLUS RHAMNOSUS GG 1 CAPSULE. PO SCH ×2 (09:34→21:30)
[2021-07-02] MEDS: ATORVASTATIN CALCIUM 10 MG TABLET. PO SCH (09:34)
[2021-07-02] MEDS: ENOXAPARIN 40 MG/0.4 ML SYRINGE. SQ SCH (09:35)
[2021-07-02 11:00] VITALS: BP 114/62
--- NOTE | 2021-07-02 11:38 | PDOC ---
[facility] PROGRESS NOTE Date of Service DOS: DATE: 07/02/21 TIME: 11:37 Chief Complaint Chief Complaint COVID-19 -status post tocilizumab 06/18/2021 he completed remdesivir. 10 days of steroids completed 06/22/2021. Hypoxemia requiring supp O2 Renal insufficiency Sepsis Acute respiratory failure with hypoxia with COVID-19 complicated by community- acquired pneumonia off antibiotics. Acute lung injury with bilateral infiltrates pneumonia Hyponatremia, acute illness, dry SHADY, acute vasomotor nephropathy Hypercalcemia HTN HLD GERD Plan: continue supportive measures wean off steroids.; Encourage more activity Encourage incentive spirometry Encourage prone Continue with current DVT prophylaxis Follow recommendations from technical healthcare consultant History of Present Illness History of Present Illness 07/02 Evaluated and examined at bedside. Still remains on Ventimask 15 L. Attempting to wean O2. Continue steroids. Discussed with Dr. Maya. 07/01 Patient evaluated examined at bedside. Still continues to endorse not really being short of breath. On Ventimask. Continue weaning as tolerated. Pulmonary team following. 06/30 Patient evaluated and examined at bedside. He was requiring 15 L nonrebreather. When I examined him patient said he really was not short of breath except with exertion. Saturating mid 90s. Turned down his nonrebreather to around 12 L and he was able to maintain his saturations. Informed him weaning the oxygen may be a slow process. He understands. Continue COVID treatments. Pulmonary following. Plan of care discussed with bedside RN. 06/29 Patient evaluated and examined at bedside. Was still requiring 10 L nonrebreather still having desaturation with minimal effort. Continue COVID treatment. We will follow pulmonary recommendations. Wean oxygen as tolerated. Plan of care discussed with bedside RN. 06/28/2021 Patient with no acute events reported overnight, he cannot breath through nis nose and is now down to 8 L He desaturates with minimal exertion 06/27/2021 No new complaints still requiring venti mask, no fever or chills reassurance provided. 06/26/2021 No acute events reported overnight, case discussed with nursing staff patient in no acute distress no complaints during my visit this morning patient required unfortunately he had to be put back on nonrebreather mask and his oxygen requirements have increased. Discussed with pulmonary technical healthcare consultant at bedside All concerns addressed to the best of my abilities 06/25/2021 Patient seen and examined Currently on 7 L of oxygen Discussed with RN Chart reviewed Afebrile overnight. On Vapotherm 20 L/min 55% FiO2 with saturations 95%. Anoth er solid bowel movement appetite is stable. WBC 18. ALT and AST trending upward minimally. He has if he still contagious and when he can get vaccinated. Overall he is very weak today. CC time 30 minutes 06/23: Afebrile overnight. On Vapotherm 25 L/min 70% FiO2 30 saturations 97%. Stools have firmed up. Good appetite. WBC trended upward. 06/22: WBC 16.4. On Vapotherm 30 L/min 80% FiO2. Saturations 91%. He removed his Vapotherm with O2 sats down to the 50s. Having some loose stools. Incr eased appetite. 06/21: Patient evaluated examined at bedside. Still requiring Vapotherm in the ICU. Continue current COVID treatments. Wean oxygen as tolerated. 06/20: Patient evaluated examined at bedside. Requiring Vapotherm still saturations low 90s. He will need ICU admission. Continue COVID treatment. Plan of care discussed with bedside RN. 06/19: Patient evaluated and examined at bedside. He was on 15 L nonrebreather and Vapotherm however Vapotherm was not even in his nose and he was saturating w ell. I woke him sleep he had no complaints. Continue current plan. 06/18: Patient seen and examined. He is on 100% Non-rebreather mask. 12L O2 per NC 06/17: Patient seen and examined at bedside. Patient reports feeling about the same as yesterday. 06/16: Patient seen and examined. He is on 100% rebreather. He is getting day 4 remdesivir today at 17 06/15: Patient seen and examined. He is currently on a 100% nonrebreather HPI: Mr Jasso is a 64-year-old man with past medical history HTN, HLD, GERD, who presents to the ER with complaints of shortness of breath since day before admission He reports "cold-like symptoms "over the past 8 days prior to presentation. He went to an urgent care, was diagnosed with COVID-19 on 06/12/2021. He was sent home with a a home oxygen monitor and was told to come back to the ED if his O2 saturation dropped below 90. At home his oxygen saturations were reading in the 80s, so he came to the ER for further evaluation. Labs on admission showed WBC 14.3, sodium 129, BUN 31, creatinine 1.5, CBG 164, AST 45, ALT 47. CTA chest showed no evidence of pulmonary embolus, but patchy groundglass opacities throughout both lungs consistent with COVID-19 pneumonitis, mild mediastinal lymphadenopathy, and coronary artery calcifications. He has not been vaccinated against COVID-19. He was given IV fluids, Rocephin, and doxycycline in the ED. Admitted patient for further medical management. Vitals/I&O Vitals/I&O: Vital Signs Date Time Temp Pulse Resp B/P (MAP) Pulse Ox O2 Delivery O2 Flow Rate FiO2 07/02/21 07:51 Venturi Mask 15.0 07/02/21 07:00 97.6 91 16 95/57 (70) 95 97.6 I & O 07/01/21 07/01/21 07/02/21 15:00 23:00 07:00 Output Total 1000 ml Balance -1000 ml Physical Exam Physical Exam: GENERAL: Alert, awake male, appears comfortable. HEART: S1, S2 ABDOMEN: nondistended. DERMATOLOGIC: no generalized rash. NEUROLOGIC: Alert and awake Lungs clear skin nad General: Alert, Oriented X3, Cooperative, mild distress Heart: Regular rate, Normal S1 Abdomen: Normal bowel sounds Extremities: No clubbing, No edema Skin: No breakdown Assessment and Plan Assessmemt and Plan Problems Medical Problems: (1) Bandemia Status: Acute (2) COVID-19 Status: Acute (3) Hypoxemia requiring supplemental oxygen Status: Acute (4) Renal insufficiency Status: Acute (5) Sepsis Status: Acute Comment Review of Relevant I have reviewed the following items alessia (where applicable) has been applied. Justifications for Admission General Conditions Other justification for admit: Respiratory failure with hypoxia, COVID-19 Other Justification MARKUS BRIGHT MD Jul 02, 2021 11:38
[2021-07-02 15:00] VITALS: BP 149/73
[2021-07-02 19:00] VITALS: BP 113/64
[2021-07-02 23:00] VITALS: BP 122/66
[2021-07-03 03:00] VITALS: BP 103/69
[2021-07-03 07:00] VITALS: BP 111/65
[2021-07-03] MEDS: PANTOPRAZOLE 40 MG TABLET.DR. PO SCH (07:58)
--- NOTE | 2021-07-03 08:08 | PDOC ---
PULMONARY PROGRESS NOTES DATE: 07/03/21 TIME: 08:07 Subjective No new events overnight no new symptoms When he transfers his O2 saturation drops to the low 80s Vitals Vital Signs Date Time Temp Pulse Resp B/P (MAP) Pulse Ox O2 Delivery O2 Flow Rate FiO2 07/03/21 08:02 Venturi Mask 15.0 07/03/21 03:00 98.7 92 16 103/69 (80) 92 98.7 Comments no distress nc at rrr no accessory muscle use no paradoixcal abd motion no rash Medications Active Scripts Medications Dose Route/Sig Max Daily Dose Days Date Category Dose Instructions Atorvastatin Calcium 10 Mg Tablet 1 Tab PO DAILY 06/22/21 Reported Losartan Potassium 100 Mg Tablet 100 Mg PO DAILY 06/22/21 Reported Hydrochlorothiazide Capsule (Hydrochlorothiazide) 12.5 Mg Capsule 12.5 Mg PO DAILY 06/22/21 Reported Omeprazole 20 Mg Tablet.dr 1 Tab PO DAILY 06/22/21 Reported Take 30 minutes before meal Terazosin Hcl 5 Mg Capsule 1 Cap PO QHS PRN 06/22/21 Reported Impression . IMPRESSION: 1. Acute on chronic respiratory failure-- 2. COVID-[address] revealing no evidence of pulmonary embolism. 4. Chronic obstructive pulmonary disease. 5. Other comorbidities as listed above. 6. Abnormal chest x-ray with diffuse bilateral infiltrates consistent with COVID-19 viral pneumonia Plan . Updated 07/03 Continue current support Patient continues to require high flow oxygen THELMA YIP MD Jul 03, 2021 08:08
[2021-07-03] MEDS: ATORVASTATIN CALCIUM 10 MG TABLET. PO SCH (09:50)
[2021-07-03] MEDS: hydroCHLOROthiazide 12.5 MG CAPSULE PO SCH (09:50)
[2021-07-03] MEDS: LOSARTAN POTASSIUM 50 MG TABLET. PO SCH (09:50)
[2021-07-03] MEDS: LACTOBACILLUS RHAMNOSUS GG 1 CAPSULE. PO SCH ×2 (09:50→21:34)
[2021-07-03] MEDS: ENOXAPARIN 40 MG/0.4 ML SYRINGE. SQ SCH (09:51)
[2021-07-03 11:00] VITALS: BP 110/66
--- NOTE | 2021-07-03 14:35 | PDOC ---
[facility] [facility] PROGRESS NOTE Date of Service DOS: DATE: 07/03/21 TIME: 14:34 Chief Complaint Chief Complaint COVID-19 -status post tocilizumab 06/18/2021 he completed remdesivir. 10 days of steroids completed 06/22/2021. Hypoxemia requiring supp O2 Renal insufficiency Sepsis Acute respiratory failure with hypoxia with COVID-19 complicated by community- acquired pneumonia off antibiotics. Acute lung injury with bilateral infiltrates pneumonia Hyponatremia, acute illness, dry SHADY, acute vasomotor nephropathy Hypercalcemia HTN HLD GERD Plan: continue supportive measures wean off steroids.; Encourage more activity Encourage incentive spirometry Encourage prone Continue with current DVT prophylaxis Follow recommendations from customer service sales consultant History of Present Illness History of Present Illness 07/03 Patient evaluated examined at bedside. Still remains on Ventimask attempting to wean. Continuing current treatments. Plan of care discussed with bedside RN. 07/02 Evaluated and examined at bedside. Still remains on Ventimask 15 L. Attempting to wean O2. Continue steroids. Discussed with Dr. Maya. 07/01 Patient evaluated examined at bedside. Still continues to endorse not really being short of breath. On Ventimask. Continue weaning as tolerated. Pulmonary team following. 06/30 Patient evaluated and examined at bedside. He was requiring 15 L nonrebreather. When I examined him patient said he really was not short of breath except with exertion. Saturating mid 90s. Turned down his nonrebreather to around 12 L and he was able to maintain his saturations. Informed him weaning the oxygen may be a slow process. He understands. Continue COVID treatments. Pulmonary following. Plan of care discussed with bedside RN. 06/29 Patient evaluated and examined at bedside. Was still requiring 10 L nonrebreather still having desaturation with minimal effort. Continue COVID treatment. We will follow pulmonary recommendations. Wean oxygen as tolerated. Plan of care discussed with bedside RN. 06/28/2021 Patient with no acute events reported overnight, he cannot breath through nis nose and is now down to 8 L He desaturates with minimal exertion 06/27/2021 No new complaints still requiring venti mask, no fever or chills reassurance provided. 06/26/2021 No acute events reported overnight, case discussed with nursing staff patient in no acute distress no complaints during my visit this morning patient required unfortunately he had to be put back on nonrebreather mask and his oxygen requi rements have increased. Discussed with pulmonary customer service sales consultant at bedside All concerns addressed to the best of my abilities 06/25/2021 Patient seen and examined Currently on 7 L of oxygen Discussed with RN Chart reviewed Afebrile overnight. On Vapotherm 20 L/min 55% FiO2 with saturations 95%. Another solid bowel movement appetite is stable. WBC 18. ALT and AST trending upward minimally. He has if he still contagious and when he can get vaccinated. Overall he is very weak today. CC time 30 minutes 06/23: Afebrile overnight. On Vapotherm 25 L/min 70% FiO2 30 saturations 97%. Stools have firmed up. Good appetite. WBC trended upward. 06/22: WBC 16.4. On Vapotherm 30 L/min 80% FiO2. Saturations 91%. He removed his Vapotherm with O2 sats down to the 50s. Having some loose stools. Increased appetite. 06/21: Patient evaluated examined at bedside. Still requiring Vapotherm in the ICU. Continue current COVID treatments. Wean oxygen as tolerated. 06/20: Patient evaluated examined at bedside. Requiring Vapotherm still saturations low 90s. He will need ICU admission. Continue COVID treatment. Plan of care discussed with bedside RN. 06/19: Patient evaluated and examined at bedside. He was on 15 L nonrebreather and Vapotherm however Vapotherm was not even in his nose and he was saturating well. I woke him sleep he had no complaints. Continue current plan. 06/18: Patient seen and examined. He is on 100% Non-rebreather mask. 12L O2 per NC 06/17: Patient seen and examined at bedside. Patient reports feeling about the same as yesterday. 06/16: Patient seen and examined. He is on 100% rebreather. He is getting day 4 remdesivir today at 17 06/15: Patient seen and examined. He is currently on a 100% nonrebreather HPI: Mr Jasso is a 64-year-old man with past medical history HTN, HLD, GERD, who presents to the ER with complaints of shortness of breath since day before admission He reports "cold-like symptoms "over the past 8 days prior to presentation. He went to an urgent care, was diagnosed with COVID-19 on 06/12/2021. He was sent home with a a home oxygen monitor and was told to come back to the ED if his O2 saturation dropped below 90. At home his oxygen saturations were reading in the 80s, so he came to the ER for further evaluation. Labs on admission showed WBC 14.3, sodium 129, BUN 31, creatinine 1.5, CBG 164, AST 45, ALT 47. CTA chest showed no evidence of pulmonary em bolus, but patchy groundglass opacities throughout both lungs consistent with COVID-19 pneumonitis, mild mediastinal lymphadenopathy, and coronary artery calcifications. He has not been vaccinated against COVID-19. He was given IV fluids, Rocephin, and doxycycline in the ED. Admitted patient for further medical management. Vitals/I&O Vitals/I&O: Vital Signs Date Time Temp Pulse Resp B/P (MAP) Pulse Ox O2 Delivery O2 Flow Rate FiO2 07/03/21 11:00 98.1 82 17 110/66 (81) 97 Venturi Mask 15.0 98.1 I & O 07/02/21 07/02/21 07/03/21 15:00 23:00 07:00 Output Total 300 ml 400 ml 300 ml Balance -300 ml -400 ml -300 ml Physical Exam Physical Exam: GENERAL: Alert, awake male, appears comfortable. HEART: S1, S2 ABDOMEN: nondistended. DERMATOLOGIC: no generalized rash. NEUROLOGIC: Alert and awake Lungs clear skin nad General: Alert, Oriented X3, Cooperative, mild distress Heart: Regular rate, Normal S1 Abdomen: Normal bowel sounds Extremities: No clubbing, No edema Skin: No breakdown Assessment and Plan Assessmemt and Plan Problems Medical Problems: (1) Bandemia Status: Acute (2) COVID-19 Status: Acute (3) Hypoxemia requiring supplemental oxygen Status: Acute (4) Renal insufficiency Status: Acute (5) Sepsis Status: Acute Comment Review of Relevant I have reviewed the following items alessia (where applicable) has been applied. Justifications for Admission General Conditions Other justification for admit: Respiratory failure with hypoxia, COVID-19 Other Justification MARKUS BRIGHT MD Jul 03, 2021 14:35
[2021-07-03 15:00] VITALS: BP 102/64
--- NOTE | 2021-07-03 15:04 | NUR ---
This RN titrated pt to 8L high flow NC at approx 1000 this am. Pt has tolerated well throughout shift, sats in the mid to high 90's. Will continue to titrate as tolerated.
[2021-07-03 19:00] VITALS: BP 109/55
[2021-07-03 23:00] VITALS: BP 105/57
[2021-07-04 03:00] VITALS: BP 99/50
[2021-07-04 07:00] VITALS: BP 108/59
[2021-07-04] MEDS: PANTOPRAZOLE 40 MG TABLET.DR. PO SCH (07:08)
[2021-07-04] MEDS: ATORVASTATIN CALCIUM 10 MG TABLET. PO SCH (09:44)
[2021-07-04] MEDS: LOSARTAN POTASSIUM 50 MG TABLET. PO SCH (09:45)
[2021-07-04] MEDS: hydroCHLOROthiazide 12.5 MG CAPSULE PO SCH (09:45)
[2021-07-04] MEDS: LACTOBACILLUS RHAMNOSUS GG 1 CAPSULE. PO SCH ×2 (09:45→23:07)
[2021-07-04] MEDS: ENOXAPARIN 40 MG/0.4 ML SYRINGE. SQ SCH (09:45)
[2021-07-04 11:00] VITALS: BP 93/61
--- NOTE | 2021-07-04 11:15 | PDOC ---
[facility] PROGRESS NOTE Date of Service DOS: DATE: 07/04/21 TIME: 11:15 Chief Complaint Chief Complaint COVID-19 -status post tocilizumab 06/18/2021 he completed remdesivir. 10 days of steroids completed 06/22/2021. Hypoxemia requiring supp O2 Renal insufficiency Sepsis Acute respiratory failure with hypoxia with COVID-19 complicated by community- acquired pneumonia off antibiotics. Acute lung injury with bilateral infiltrates pneumonia Hyponatremia, acute illness, dry SHADY, acute vasomotor nephropathy Hypercalcemia HTN HLD GERD Plan: continue supportive measures wean off steroids.; Encourage more activity Encourage incentive spirometry Encourage prone Continue with current DVT prophylaxis Follow recommendations from education sales consultant History of Present Illness History of Present Illness 07/04 Patient evaluated examined at bedside. Notable improvement in oxygen requirement yesterday down to 6 L nasal cannula when seen this morning. We will plan for 6- minute walk tomorrow morning and possible discharge tomorrow if continued impro vement. 07/03 Patient evaluated examined at bedside. Still remains on Ventimask attempting to wean. Continuing current treatments. Plan of care discussed with bedside RN. 07/02 Evaluated and examined at bedside. Still remains on Ventimask 15 L. Attempting to wean O2. Continue steroids. Discussed with Dr. Maya. 07/01 Patient evaluated examined at bedside. Still continues to endorse not really being short of breath. On Ventimask. Continue weaning as tolerated. Pulmonary team following. 06/30 Patient evaluated and examined at bedside. He was requiring 15 L nonrebreather. When I examined him patient said he really was not short of breath except with exertion. Saturating mid 90s. Turned down his nonrebreather to around 12 L and he was able to maintain his saturations. Informed him weaning the oxygen may be a slow process. He understands. Continue COVID treatments. Pulmonary following. Plan of care discussed with bedside RN. 06/29 Patient evaluated and examined at bedside. Was still requiring 10 L nonrebreather still having desaturation with minimal effort. Continue COVID treatment. We will follow pulmonary recommendations. Wean oxygen as tolerated. Plan of care discussed with bedside RN. 06/28/2021 Patient with no acute events reported overnight, he cannot breath through nis nose and is now down to 8 L He desaturates with minimal exertion 06/27/2021 No new complaints still requiring venti mask, no fever or chills reassurance provided. 06/26/2021 No acute events reported overnight, case discussed with nursing staff patient in no acute distress no complaints during my visit this morning patient required unfortunately he had to be put back on nonrebreather mask and his oxygen require ments have increased. Discussed with pulmonary education sales consultant at bedside All concerns addressed to the best of my abilities 06/25/2021 Patient seen and examined Currently on 7 L of oxygen Discussed with RN Chart reviewed Afebrile overnight. On Vapotherm 20 L/min 55% FiO2 with saturations 95%. Another solid bowel movement appetite is stable. WBC 18. ALT and AST trending upward minimally. He has if he still contagious and when he can get vaccinated. Overall he is very weak today. CC time 30 minutes 06/23: Afebrile overnight. On Vapotherm 25 L/min 70% FiO2 30 saturations 97%. Stools have firmed up. Good appetite. WBC trended upward. 06/22: WBC 16.4. On Vapotherm 30 L/min 80% FiO2. Saturations 91%. He removed his Vapotherm with O2 sats down to the 50s. Having some loose stools. Increased appetite. 06/21: Patient evaluated examined at bedside. Still requiring Vapotherm in the ICU. Continue current COVID treatments. Wean oxygen as tolerated. 06/20: Patient evaluated examined at bedside. Requiring Vapotherm still saturations low 90s. He will need ICU admission. Continue COVID treatment. Plan of care discussed with bedside RN. 06/19: Patient evaluated and examined at bedside. He was on 15 L nonrebreather and Vapotherm however Vapotherm was not even in his nose and he was saturating well. I woke him sleep he had no complaints. Continue current plan. 06/18: Patient seen and examined. He is on 100% Non-rebreather mask. 12L O2 per NC 06/17: Patient seen and examined at bedside. Patient reports feeling about the same as yesterday. 06/16: Patient seen and examined. He is on 100% rebreather. He is getting day 4 remdesivir today at 17 06/15: Patient seen and examined. He is currently on a 100% nonrebreather HPI: Mr Jasso is a 64-year-old man with past medical history HTN, HLD, GERD, who presents to the ER with complaints of shortness of breath since day before admission He reports "cold-like symptoms "over the past 8 days prior to presentation. He went to an urgent care, was diagnosed with COVID-19 on 06/12/2021. He was sent home with a a home oxygen monitor and was told to come back to the ED if his O2 saturation dropped below 90. At home his oxygen saturations were reading in the 80s, so he came to the ER for further evaluation. Labs on admission showed WBC 14.3, sodium 129, BUN 31, creatinine 1.5, CBG 164, AST 45, ALT 47. CTA chest showed no evidence of pulmonary embo isaías, but patchy groundglass opacities throughout both lungs consistent with COVID-19 pneumonitis, mild mediastinal lymphadenopathy, and coronary artery calcifications. He has not been vaccinated against COVID-19. He was given IV fluids, Rocephin, and doxycycline in the ED. Admitted patient for further medical management. Vitals/I&O Vitals/I&O: Vital Signs Date Time Temp Pulse Resp B/P (MAP) Pulse Ox O2 Delivery O2 Flow Rate FiO2 07/04/21 09:45 92 108/59 07/04/21 07:00 97.5 18 97 Nasal Cannula 6.0 97.5 I & O 07/03/21 07/03/21 07/04/21 15:00 23:00 07:00 Intake Total 360 ml Output Total 300 ml Balance 360 ml -300 ml Physical Exam Physical Exam: GENERAL: Alert, awake male, appears comfortable. HEART: S1, S2 ABDOMEN: nondistended. DERMATOLOGIC: no generalized rash. NEUROLOGIC: Alert and awake Lungs clear skin nad General: Alert, Oriented X3, Cooperative, mild distress Heart: Regular rate, Normal S1 Abdomen: Normal bowel sounds Extremities: No clubbing, No edema Skin: No breakdown Assessment and Plan Assessmemt and Plan Problems Medical Problems: (1) Bandemia Status: Acute (2) COVID-19 Status: Acute (3) Hypoxemia requiring supplemental oxygen Status: Acute (4) Renal insufficiency Status: Acute (5) Sepsis Status: Acute Comment Review of Relevant I have reviewed the following items alessia (where applicable) has been applied. Justifications for Admission General Conditions Other justification for admit: Respiratory failure with hypoxia, COVID-19 Other Justification MARKUS BRIGHT MD Jul 04, 2021 11:15
--- NOTE | 2021-07-04 12:22 | PDOC ---
PULMONARY PROGRESS NOTES DATE: 07/04/21 TIME: 12:21 Subjective Currently on 5 L, desaturates with activity Vitals Vital Signs Date Time Temp Pulse Resp B/P (MAP) Pulse Ox O2 Delivery O2 Flow Rate FiO2 07/04/21 09:45 92 108/59 07/04/21 08:30 Nasal Cannula 6.0 07/04/21 07:00 97.5 18 97 97.5 Comments no distress nc at rrr no accessory muscle use no paradoixcal abd motion no rash Medications Active Scripts Medications Dose Route/Sig Max Daily Dose Days Date Category Dose Instructions Atorvastatin Calcium 10 Mg Tablet 1 Tab PO DAILY 06/22/21 Reported Losartan Potassium 100 Mg Tablet 100 Mg PO DAILY 06/22/21 Reported Hydrochlorothiazide Capsule (Hydrochlorothiazide) 12.5 Mg Capsule 12.5 Mg PO DAILY 06/22/21 Reported Omeprazole 20 Mg Tablet.dr 1 Tab PO DAILY 06/22/21 Reported Take 30 minutes before meal Terazosin Hcl 5 Mg Capsule 1 Cap PO QHS PRN 06/22/21 Reported Impression . IMPRESSION: 1. Acute on chronic respiratory failure-- 2. COVID-[address] revealing no evidence of pulmonary embolism. 4. Chronic obstructive pulmonary disease. 5. Other comorbidities as listed above. 6. Abnormal chest x-ray with diffuse bilateral infiltrates consistent with COVID-19 viral pneumonia Plan . Updated 07/04 Oxygen needs have diminished 6-minute walk in the a.m. Continue current support Updated 07/03 Continue current support Patient continues to require high flow oxygen THELMA YIP MD Jul 04, 2021 12:22
[2021-07-04 15:00] VITALS: BP 100/56
[2021-07-04 19:00] VITALS: BP 105/55
[2021-07-04 23:02] VITALS: BP 95/56
[2021-07-05 03:24] VITALS: BP 97/50
[2021-07-05 06:34] VITALS: BP 114/68
[2021-07-05] MEDS: PANTOPRAZOLE 40 MG TABLET.DR. PO SCH (06:34)
[2021-07-05] MEDS: LACTOBACILLUS RHAMNOSUS GG 1 CAPSULE. PO SCH ×2 (08:16→20:58)
[2021-07-05] MEDS: hydroCHLOROthiazide 12.5 MG CAPSULE PO SCH (08:16)
[2021-07-05] MEDS: ATORVASTATIN CALCIUM 10 MG TABLET. PO SCH (08:16)
[2021-07-05] MEDS: LOSARTAN POTASSIUM 50 MG TABLET. PO SCH (08:17)
[2021-07-05] MEDS: ENOXAPARIN 40 MG/0.4 ML SYRINGE. SQ SCH (08:19)
[2021-07-05 11:00] VITALS: BP 110/60
--- NOTE | 2021-07-05 11:41 | PDOC ---
[facility] [facility] PROGRESS NOTE Date of Service DOS: DATE: 07/05/21 TIME: 11:40 Chief Complaint Chief Complaint COVID-19 -status post tocilizumab 06/18/2021 he completed remdesivir. 10 days of steroids completed 06/22/2021. Hypoxemia requiring supp O2 Renal insufficiency Sepsis Acute respiratory failure with hypoxia with COVID-19 complicated by community- acquired pneumonia off antibiotics. Acute lung injury with bilateral infiltrates pneumonia Hyponatremia, acute illness, dry SHADY, acute vasomotor nephropathy Hypercalcemia HTN HLD GERD Plan: continue supportive measures wean off steroids.; Encourage more activity Encourage incentive spirometry Encourage prone Continue with current DVT prophylaxis Follow recommendations from senior recruitment consultant History of Present Illness History of Present Illness 07/05 Patient evaluated examined at bedside. He is down to 4 L nasal cannula. Does still have some oxygen issues with activity interested to see how 6-minute walk yesterday. We will follow up once this complete. 07/04 Patient evaluated examined at bedside. Notable improvement in oxygen requirement yesterday down to 6 L nasal cannula when seen this morning. We will plan for 6- minute walk tomorrow morning and possible discharge tomorrow if continued improvement. 07/03 Patient evaluated examined at bedside. Still remains on Ventimask attempting to wean. Continuing current treatments. Plan of care discussed with bedside RN. 07/02 Evaluated and examined at bedside. Still remains on Ventimask 15 L. Attempting to wean O2. Continue steroids. Discussed with Dr. Maya. 07/01 Patient evaluated examined at bedside. Still continues to endorse not really being short of breath. On Ventimask. Continue weaning as tolerated. Pulmonary team following. 06/30 Patient evaluated and examined at bedside. He was requiring 15 L nonrebreather. When I examined him patient said he really was not short of breath except with exertion. Saturating mid 90s. Turned down his nonrebreather to around 12 L and he was able to maintain his saturations. Informed him weaning the oxygen may be a slow process. He understands. Continue COVID treatments. Pulmonary following. Plan of care discussed with bedside RN. 06/29 Patient evaluated and examined at bedside. Was still requiring 10 L nonrebreather still having desaturation with minimal effort. Continue COVID treatment. We will follow pulmonary recommendations. Wean oxygen as tolerated. Plan of care discussed with bedside RN. 06/28/2021 Patient with no acute events reported overnight, he cannot breath through nis nose and is now down to 8 L He desaturates with minimal exertion 06/27/2021 No new complaints still requiring venti mask, no fever or chills reassurance provided. 06/26/2021 No acute events reported overnight, case discussed with nursing staff patient in no acute distress no complaints during my visit this morning patient required unfortunately he had to be put back on nonrebreather mask and his oxygen requirements have increased. Discussed with pulmonary senior recruitment consultant at bedside All concerns addressed to the best of my abilities 06/25/2021 Patient seen and examined Currently on 7 L of oxygen Discussed with RN Chart reviewed Afebrile overnight. On Vapotherm 20 L/min 55% FiO2 with saturations 95%. A nother solid bowel movement appetite is stable. WBC 18. ALT and AST trending upward minimally. He has if he still contagious and when he can get vaccinated. Overall he is very weak today. CC time 30 minutes 06/23: Afebrile overnight. On Vapotherm 25 L/min 70% FiO2 30 saturations 97%. Stools have firmed up. Good appetite. WBC trended upward. 06/22: WBC 16.4. On Vapotherm 30 L/min 80% FiO2. Saturations 91%. He removed his Vapotherm with O2 sats down to the 50s. Having some loose stools. Increased appetite. 06/21: Patient evaluated examined at bedside. Still requiring Vapotherm in the ICU. Continue current COVID treatments. Wean oxygen as tolerated. 06/20: Patient evaluated examined at bedside. Requiring Vapotherm still saturations low 90s. He will need ICU admission. Continue COVID treatment. Plan of care discussed with bedside RN. 06/19: Patient evaluated and examined at bedside. He was on 15 L nonrebreather and Vapotherm however Vapotherm was not even in his nose and he was saturating well. I woke him sleep he had no complaints. Continue current plan. 06/18: Patient seen and examined. He is on 100% Non-rebreather mask. 12L O2 per NC 06/17: Patient seen and examined at bedside. Patient reports feeling about the same as yesterday. 06/16: Patient seen and examined. He is on 100% rebreather. He is getting day 4 remdesivir today at 17 06/15: Patient seen and examined. He is currently on a 100% nonrebreather HPI: Mr Jasso is a 64-year-old man with past medical history HTN, HLD, GERD, who presents to the ER with complaints of shortness of breath since day before admission He reports "cold-like symptoms "over the past 8 days prior to presentation. He went to an urgent care, was diagnosed with COVID-19 on 06/12/2021. He was sent home with a a home oxygen monitor and was told to come back to the ED if his O2 saturation dropped below 90. At home his oxygen saturations were reading in the 80s, so he came to the ER for further evaluation. Labs on admission showed WBC 14.3, sodium 129, BUN 31, creatinine 1.5, CBG 164, AST 45, ALT 47. CTA chest showed no evidence of pulmonary embolus, but patchy groundglass opacities throughout both lungs consistent with COVID-19 pneumonitis, mild mediastinal lymphadenopathy, and coronary artery calcifications. He has not been vaccinated against COVID-19. He was given IV fluids, Rocephin, and doxycycline in the ED. Admitted patient for further medical management. Vitals/I&O Vitals/I&O: Vital Signs Date Time Temp Pulse Resp B/P (MAP) Pulse Ox O2 Delivery O2 Flow Rate FiO2 07/05/21 08:17 91 114/68 07/05/21 07:50 Nasal Cannula 4.0 07/05/21 06:34 98.1 20 98 98.1 I & O 07/04/21 07/04/21 07/05/21 15:00 23:00 07:00 Intake Total 120 ml Output Total 700 ml Balance -580 ml Physical Exam Physical Exam: GENERAL: Alert, awake male, appears comfortable. HEART: S1, S2 ABDOMEN: nondistended. DERMATOLOGIC: no generalized rash. NEUROLOGIC: Alert and awake Lungs clear skin nad General: Alert, Oriented X3, Cooperative, mild distress Heart: Regular rate, Normal S1 Abdomen: Normal bowel sounds Extremities: No clubbing, No edema Skin: No breakdown Assessment and Plan Assessmemt and Plan Problems Medical Problems: (1) Bandemia Status: Acute (2) COVID-19 Status: Acute (3) Hypoxemia requiring supplemental oxygen Status: Acute (4) Renal insufficiency Status: Acute (5) Sepsis Status: Acute Comment Review of Relevant I have reviewed the following items alessia (where applicable) has been applied. Justifications for Admission General Conditions Other justification for admit: Respiratory failure with hypoxia, COVID-19 Other Justification MARKUS BRIGHT MD Jul 05, 2021 11:41
--- NOTE | 2021-07-05 13:03 | PDOC ---
PULMONARY PROGRESS NOTES DATE: 07/05/21 TIME: 13:02 Subjective Now on 4 L of oxygen not more short of air Vitals Vital Signs Date Time Temp Pulse Resp B/P (MAP) Pulse Ox O2 Delivery O2 Flow Rate FiO2 07/05/21 08:17 91 114/68 07/05/21 07:50 Nasal Cannula 4.0 07/05/21 06:34 98.1 20 98 98.1 Comments no distress nc at rrr no accessory muscle use no paradoixcal abd motion no rash Medications Active Scripts Medications Dose Route/Sig Max Daily Dose Days Date Category Dose Instructions Atorvastatin Calcium 10 Mg Tablet 1 Tab PO DAILY 06/22/21 Reported Losartan Potassium 100 Mg Tablet 100 Mg PO DAILY 06/22/21 Reported Hydrochlorothiazide Capsule (Hydrochlorothiazide) 12.5 Mg Capsule 12.5 Mg PO DAILY 06/22/21 Reported Omeprazole 20 Mg Tablet.dr 1 Tab PO DAILY 06/22/21 Reported Take 30 minutes before meal Terazosin Hcl 5 Mg Capsule 1 Cap PO QHS PRN 06/22/21 Reported Impression . IMPRESSION: 1. Acute on chronic respiratory failure-- 2. COVID-[address] revealing no evidence of pulmonary embolism. 4. Chronic obstructive pulmonary disease. 5. Other comorbidities as listed above. 6. Abnormal chest x-ray with diffuse bilateral infiltrates consistent with COVID-19 viral pneumonia Plan . Updated 07/05 6-minute walk in the a.m. Possible discharge Continue support Updated 07/04 Oxygen needs have diminished 6-minute walk in the a.m. Continue current support THELMA YIP MD Jul 05, 2021 13:03
[2021-07-05 15:00] VITALS: BP 103/60
[2021-07-05 19:00] VITALS: BP 108/56
[2021-07-05 23:03] VITALS: BP 113/62
[2021-07-06 03:18] VITALS: BP 107/64
[2021-07-06] MEDS: PANTOPRAZOLE 40 MG TABLET.DR. PO SCH (06:26)
[2021-07-06 07:00] VITALS: BP 110/63
--- NOTE | 2021-07-06 09:01 | PDOC ---
PULMONARY PROGRESS NOTES DATE: 07/06/21 TIME: 08:59 Subjective Remains on 4 L of oxygen not more short of air Vitals Vital Signs Date Time Temp Pulse Resp B/P (MAP) Pulse Ox O2 Delivery O2 Flow Rate FiO2 07/06/21 07:00 96.9 89 18 110/63 (79) 96 Nasal Cannula 6.0 96.9 Comments no distress nc at rrr no accessory muscle use no paradoixcal abd motion no rash Medications Active Scripts Medications Dose Route/Sig Max Daily Dose Days Date Category Dose Instructions Atorvastatin Calcium 10 Mg Tablet 1 Tab PO DAILY 06/22/21 Reported Losartan Potassium 100 Mg Tablet 100 Mg PO DAILY 06/22/21 Reported Hydrochlorothiazide Capsule (Hydrochlorothiazide) 12.5 Mg Capsule 12.5 Mg PO DAILY 06/22/21 Reported Omeprazole 20 Mg Tablet.dr 1 Tab PO DAILY 06/22/21 Reported Take 30 minutes before meal Terazosin Hcl 5 Mg Capsule 1 Cap PO QHS PRN 06/22/21 Reported Impression . IMPRESSION: 1. Acute on chronic respiratory failure-- 2. COVID-[address] revealing no evidence of pulmonary embolism. 4. Chronic obstructive pulmonary disease. 5. Other comorbidities as listed above. 6. Abnormal chest x-ray with diffuse bilateral infiltrates consistent with COVID-19 viral pneumonia Plan . Clinically stable. On 4 L of oxygen via nasal cannula. 6-minute walk Consider discharge today. Discussed with RN. Continue support WU MENDOZA MD Jul 06, 2021 09:01
[2021-07-06] MEDS: FAMOTIDINE 20 MG TABLET. PO PRN (09:41)
[2021-07-06] MEDS: LACTOBACILLUS RHAMNOSUS GG 1 CAPSULE. PO SCH (09:42)
[2021-07-06] MEDS: guaiFENesin DM 200MG/20MG 10 ML SYRUP PO PRN (09:42)
[2021-07-06] MEDS: tiZANidine 4 MG TABLET. PO PRN (09:42)
[2021-07-06] MEDS: BENZONATATE 100 MG CAPSULE. PO PRN (09:42)
[2021-07-06] MEDS: ENOXAPARIN 40 MG/0.4 ML SYRINGE. SQ SCH (09:43)
[2021-07-06] MEDS: ATORVASTATIN CALCIUM 10 MG TABLET. PO SCH (09:44)
--- NOTE | 2021-07-06 10:06 | PDOC ---
[employer] [facility] PROGRESS NOTE Date of Service DOS: DATE: 07/06/21 TIME: 10:06 Chief Complaint Chief Complaint COVID-19 -status post tocilizumab 06/18/2021 he completed remdesivir. 10 days of steroids completed 06/22/2021. Hypoxemia requiring supp O2 Renal insufficiency Sepsis Acute respiratory failure with hypoxia with COVID-19 complicated by community- acquired pneumonia off antibiotics. Acute lung injury with bilateral infiltrates pneumonia Hyponatremia, acute illness, dry SHADY, acute vasomotor nephropathy Hypercalcemia HTN HLD GERD Plan: continue supportive measures wean off steroids.; Encourage more activity Encourage incentive spirometry Encourage prone Continue with current DVT prophylaxis Follow recommendations from help desk consultant History of Present Illness History of Present Illness 07/06: O2 saturations 94% on 4 L nasal cannula. Able to ambulate around the room with walker he does not wish to go to skilled rehab is asking if he can go home on oxygen. Cough is minimal today. Discussed with pulmonology 07/05 Patient evaluated examined at bedside. He is down to 4 L nasal cannula. Does still have some oxygen issues with activity interested to see how 6-minute walk yesterday. We will follow up once this complete. 07/04 Patient evaluated examined at bedside. Notable improvement in oxygen requirement yesterday down to 6 L nasal cannula when seen this morning. We will plan for 6- minute walk tomorrow morning and possible discharge tomorrow if continued improvement. 07/03 Patient evaluated examined at bedside. Still remains on Ventimask attempting to wean. Continuing current treatments. Plan of care discussed with bedside RN. 07/02 Evaluated and examined at bedside. Still remains on Ventimask 15 L. Attempting to wean O2. Continue steroids. Discussed with Dr. Maya. 07/01 Patient evaluated examined at bedside. Still continues to endorse not really being short of breath. On Ventimask. Continue weaning as tolerated. Pulmonary team following. 06/30 Patient evaluated and examined at bedside. He was requiring 15 L nonrebreather. When I examined him patient said he really was not short of breath except with exertion. Saturating mid 90s. Turned down his nonrebreather to around 12 L and he was able to maintain his saturations. Informed him weaning the oxygen may be a slow process. He understands. Continue COVID treatments. Pulmonary followi ng. Plan of care discussed with bedside RN. 06/29 Patient evaluated and examined at bedside. Was still requiring 10 L nonrebreather still having desaturation with minimal effort. Continue COVID treatment. We will follow pulmonary recommendations. Wean oxygen as tolerated. Plan of care discussed with bedside RN. 06/28/2021 Patient with no acute events reported overnight, he cannot breath through nis nose and is now down to 8 L He desaturates with minimal exertion 06/27/2021 No new complaints still requiring venti mask, no fever or chills reassurance provided. 06/26/2021 No acute events reported overnight, case discussed with nursing staff patient in no acute distress no complaints during my visit this morning patient required unfortunately he had to be put back on nonrebreather mask and his oxygen requirements have increased. Discussed with pulmonary help desk consultant at bedside All concerns addressed to the best of my abilities 06/25/2021 Patient seen and examined Currently on 7 L of oxygen Discussed with RN Chart reviewed Afebrile overnight. On Vapotherm 20 L/min 55% FiO2 with saturations 95%. Another solid bowel movement appetite is stable. WBC 18. ALT and AST trending upward minimally. He has if he still contagious and when he can get vaccinated. Overall he is very weak today. CC time 30 minutes 06/23: Afebrile overnight. On Vapotherm 25 L/min 70% FiO2 30 saturations 97%. Stools have firmed up. Good appetite. WBC trended upward. 06/22: WBC 16.4. On Vapotherm 30 L/min 80% FiO2. Saturations 91%. He removed his Vapotherm with O2 sats down to the 50s. Having some loose stools. Increased appetite. 06/21: Patient evaluated examined at bedside. Still requiring Vapotherm in the ICU. Continue current COVID treatments. Wean oxygen as tolerated. 06/20: Patient evaluated examined at bedside. Requiring Vapotherm still saturations low 90s. He will need ICU admission. Continue COVID treatment. Plan of care discussed with bedside RN. 06/19: Patient evaluated and examined at bedside. He was on 15 L nonrebreather and Vapotherm however Vapotherm was not even in his nose and he was saturating well. I woke him sleep he had no complaints. Continue current plan. 06/18: Patient seen and examined. He is on 100% Non-rebreather mask. 12L O2 per NC 06/17: Patient seen and examined at bedside. Patient reports feeling about the same as yesterday. 06/16: Patient seen and examined. He is on 100% rebreather. He is getting day 4 remdesivir today at 17 06/15: Patient seen and examined. He is currently on a 100% nonrebreather HPI: Mr Jasso is a 64-year-old man with past medical history HTN, HLD, GERD, who presents to the ER with complaints of shortness of breath since day before admission He reports "cold-like symptoms "over the past 8 days prior to presentation. He went to an urgent care, was diagnosed with COVID-19 on 06/12/2021. He was sent home with a a home oxygen monitor and was told to come back to the ED if his O2 saturation dropped below 90. At home his oxygen saturations were reading in the 80s, so he came to the ER for further evaluation. Labs on admission showed WBC 14.3, sodium 129, BUN 31, creatinine 1.5, CBG 164, AST 45, ALT 47. CTA chest showed no evidence of pulmonary embolus, but patchy groundglass opacities throughout both lungs consistent with COVID-19 pneumonitis, mild mediastinal lymphadenopathy, and coronary artery calcifications. He has not been vaccinated against COVID-19. He was given IV fluids, Rocephin, and doxycycline in the ED. Admitted patient for further medical management. Vitals/I&O Vitals/I&O: Vital Signs Date Time Temp Pulse Resp B/P (MAP) Pulse Ox O2 Delivery O2 Flow Rate FiO2 07/06/21 07:00 96.9 89 18 110/63 (79) 96 Nasal Cannula 6.0 96.9 I & O 07/05/21 07/05/21 07/06/21 15:00 23:00 07:00 Output Total 150 ml 100 ml Balance -150 ml -100 ml Physical Exam Physical Exam: GENERAL: Alert, awake male, appears comfortable. HEART: S1, S2 ABDOMEN: nondistended. DERMATOLOGIC: no generalized rash. NEUROLOGIC: Alert and awake Lungs clear skin nad General: Alert, Oriented X3, Cooperative, mild distress Heart: Regular rate, Normal S1 Abdomen: Normal bowel sounds Extremities: No clubbing, No edema Skin: No breakdown Assessment and Plan Assessmemt and Plan Problems Medical Problems: (1) Bandemia Status: Acute (2) COVID-19 Status: Acute (3) Hypoxemia requiring supplemental oxygen Status: Acute (4) Renal insufficiency Status: Acute (5) Sepsis Status: Acute Comment Review of Relevant I have reviewed the following items alessia (where applicable) has been applied. Justifications for Admission General Conditions Other justification for admit: Respiratory failure with hypoxia, COVID-19 Other Justification MARKUS BENNETT MD Jul 06, 2021 10:06
[2021-07-06 11:00] VITALS: BP 112/63
[2021-07-06] MEDS: hydroCHLOROthiazide 12.5 MG CAPSULE PO SCH (12:11)
[2021-07-06] MEDS: LOSARTAN POTASSIUM 50 MG TABLET. PO SCH (12:11)
[2021-07-06] MEDS ORDERED: TIZA-75 PO (14:05)
[2021-07-06] MEDS ORDERED: BENZ-8 PO (14:05)
--- NOTE | 2021-07-06 14:08 | SNU/HH DC ---
DISCHARGE WITH HOME HEALTH DISCHARGE INFORMATION: Discharge Date: Jul 06, 2021 Final Diagnosis: Problems Medical Problems: (1) Bandemia Status: Acute (2) COVID-19 Status: Acute (3) Hypoxemia requiring supplemental oxygen Status: Acute (4) Renal insufficiency Status: Acute (5) Sepsis Status: Acute Condition on Discharge: Stable CODE STATUS: Code Status: Full HOME HEALTH: Face to Face: I certify this patient is under my care and that I, or a nurse practitioner or physician's ex assistant/program director working with me, had a face to face encounter that meets the physician face to face encounter requirements with this patient on . Medical Complications: Pneumonia Care Home For: Assess & Educate Safety, Assess/Skilled Observatio, Medication Management RN For Eval/Treatment: Yes Physical Therapy For: Evalulation/Treatment Occupational Therapy For: Evaluation/Treatment Pt Meets Homebound Status: Extreme weakness w/ amb. POST DISCHARGE ORDERS: Activity Instructions for Disc: No restrictions, Resume previous activity Weight Bearing Status after Di: No restrictions, Full weight bearing DIET AFTER DISCHARGE: Regular CHECKS AFTER DISCHARGE: Checks after discharge: Check blood press - daily, Check blood sugar, ac/hs, Check your Temp as needed TREATMENT/EQUIPMENT ORDERS: Adaptive Equipment Issued: None Discharge Respiratory Equipmen: Oxygen CERTIFICATION STATEMENT: Certification Statement: Certification Statement: Based on the above finding, I certify that this patient is confined to the home and needs intermittent custodial care, physical therapy and/or speech therapy, or continues to need occupational therapy.~ This patient is under my care, and I have initiated the establishment of the plan of care.~ This patient will be followed by myself or a community physician who will periodically review the plan of care. Home Meds Active Scripts Tizanidine Hcl (TIZANIDINE HCL) 4 Mg Tablet, 4 MG PO PRN Q8HRS PRN for MUSCLE SPASMS for 10 Days, #30 TAB Prov:MARKUS BENNETT MD 07/06/21 Benzonatate (BENZONATATE) 100 Mg Capsule, 100 MG PO PRN Q8HRS PRN for COUGH (2nd Choice) for 10 Days, #30 CAP Prov:MARKUS BENNETT MD 07/06/21 Reported Medications Atorvastatin Calcium (ATORVASTATIN CALCIUM) 10 Mg Tablet, 1 TAB PO DAILY for hypertension, #30 TAB 5 Refills 06/22/21 Losartan Potassium (LOSARTAN POTASSIUM) 100 Mg Tablet, 100 MG PO DAILY for HYPERTENSION, TAB 06/22/21 Omeprazole (OMEPRAZOLE) 20 Mg Tablet.dr, 1 TAB PO DAILY for GERD, #90 TAB 1 Refill Take 30 minutes before meal 06/22/21 Terazosin Hcl (TERAZOSIN HCL) 5 Mg Capsule, 1 CAP PO QHS PRN for URINARY PAIN, #30 CAP 5 Refills 06/22/21 Discontinued Reported Medications Hydrochlorothiazide (HYDROCHLOROTHIAZIDE CAPSULE ) 12.5 Mg Capsule, 12.5 MG PO DAILY for DIURETIC, CAP 0 Refills 06/22/21 MARKUS BENNETT MD Jul 06, 2021 14:07
--- NOTE | 2021-07-06 14:15 | PDOC3 ---
Discharge Summary Visit Information Date of Admission: Jun 13, 2021 Date of Discharge: Jul 06, 2021 Admitting Diagnosis: COVID 19 Final Diagnosis Problems Medical Problems: (1) Bandemia Status: Acute (2) COVID-19 Status: Acute (3) Hypoxemia requiring supplemental oxygen Status: Acute (4) Renal insufficiency Status: Acute (5) Sepsis Status: Acute Brief Hospital Course Allergies Allergies Coded Allergies Type Severity Reaction Last Updated Verified No Known Drug Allergies 06/13/21 No Vital Signs Vital Signs Date Time Temp Pulse Resp B/P (MAP) Pulse Ox O2 Delivery O2 Flow Rate FiO2 07/06/21 12:11 104 112/63 07/06/21 11:00 96.8 16 97 Nasal Cannula 6.0 96.8 Brief Hospital Course HPI: Mr Jasso is a 64-year-old man with past medical history HTN, HLD, GERD, who presents to the ER with complaints of shortness of breath since day before admission He reports "cold-like symptoms "over the past 8 days prior to presentation. He went to an urgent care, was diagnosed with COVID-19 on 06/12/2021. He was sent home with a a home oxygen monitor and was told to come back to the ED if his O2 saturation dropped below 90. At home his oxygen satu rations were reading in the 80s, so he came to the ER for further evaluation. Labs on admission showed WBC 14.3, sodium 129, BUN 31, creatinine 1.5, CBG 164, AST 45, ALT 47. CTA chest showed no evidence of pulmonary embolus, but patchy groundglass opacities throughout both lungs consistent with COVID-19 pneumonitis, mild mediastinal lymphadenopathy, and coronary artery calcificat ions. He has not been vaccinated against COVID-19. He was given IV fluids, Rocephin, and doxycycline in the ED. Admitted patient for further medical management. 06/15: Patient seen and examined. He is currently on a 100% nonrebreather 06/16: Patient seen and examined. He is on 100% rebreather. He is getting day 4 remdesivir today at 17 06/17: Patient seen and examined at bedside. Patient reports feeling about the same as yesterday. 06/18: Patient seen and examined. He is on 100% Non-rebreather mask. 12L O2 per NC 06/18: Patient seen and examined. He is on 100% Non-rebreather mask. 12L O2 per NC 06/20: Patient evaluated examined at bedside. Requiring Vapotherm still saturations low 90s. He will need ICU admission. Continue COVID treatment. Plan of care discussed with bedside RN. 06/21: Patient evaluated examined at bedside. Still requiring Vapotherm in the ICU. Continue current COVID treatments. Wean oxygen as tolerated. 06/22: WBC 16.4. On Vapotherm 30 L/min 80% FiO2. Saturations 91%. He removed his Vapotherm with O2 sats down to the 50s. Having some loose stools. Increased appetite. 06/23: Afebrile overnight. On Vapotherm 25 L/min 70% FiO2 30 saturations 97%. Stools have firmed up. Good appetite. WBC trended upward. 06/24: Afebrile overnight. On Vapotherm 20 L/min 55% FiO2 with saturations 95%. Another solid bowel movement appetite is stable. WBC 18. ALT and AST trending upward minimally. He has if he still contagious and when he can get vaccinated. Overall he is very weak today. 06/25: Patient seen and examined. Currently on 7 L of oxygen 06/26: No acute events reported overnight, case discussed with nursing staff patient in no acute distress no complaints during my visit this morning patient required unfortunately he had to be put back on nonrebreather mask and his oxygen requirements have increased. 06/27: No new complaints still requiring venti mask, no fever or chills reassurance provided. 06/28: Patient with no acute events reported overnight, he cannot breath through nis nose and is now down to 8 L He desaturates with minimal exertion 06/29: Patient evaluated and examined at bedside. Was still requiring 10 L nonr ebreather still having desaturation with minimal effort. Continue COVID treatment. We will follow pulmonary recommendations. Wean oxygen as tolerated. Plan of care discussed with bedside RN. 06/30: Patient evaluated and examined at bedside. He was requiring 15 L nonrebreather. When I examined him patient said he really was not short of breath except with exertion. Saturating mid 90s. Turned down his nonrebreather to around 12 L and he was able to maintain his saturations. 07/01: Patient evaluated examined at bedside. Still continues to endorse not really being short of breath. On Ventimask. Continue weaning as tolerated. Pulmonary team following. 07/02: Evaluated and examined at bedside. Still remains on Ventimask 15 L. Attempting to wean O2. Continue steroids. Discussed with Dr. Maya. 07/03: Patient evaluated examined at bedside. Still remains on Ventimask attemp ting to wean. Continuing current treatments. Plan of care discussed with bedside RN. 07/04: Patient evaluated examined at bedside. Notable improvement in oxygen requirement yesterday down to 6 L nasal cannula when seen this morning. We will plan for 6-minute walk tomorrow morning and possible discharge tomorrow if continued improvement. 07/05: Patient evaluated examined at bedside. He is down to 4 L nasal cannula. Does still have some oxygen issues with activity interested to see how 6-minute walk yesterday. We will follow up once this complete. 07/06: O2 saturations 94% on 4 L nasal cannula. Able to ambulate around the room with walker he does not wish to go to skilled rehab is asking if he can go home on oxygen. Cough is minimal today. Discussed with pulmonology After prolonged COVID-19 hospitalization is able to ambulate and go home with home health and 3 L/min O2 and has outpatient follow-up as needed. Consults: Pulm, ID Problem list: COVID-19 -status post tocilizumab 06/18/2021 he completed remdesivir. 10 days of steroids completed 06/22/2021. Hypoxemia requiring supp O2 Renal insufficiency Sepsis Acute respiratory failure with hypoxia with COVID-19 complicated by community- acquired pneumonia off antibiotics. Acute lung injury with bilateral infiltrates pneumonia Hyponatremia, acute illness, dry SHADY, acute vasomotor nephropathy Hypercalcemia HTN HLD GERD Greater than 30 minutes spent on d/c home with home health Discharge Information Condition at Discharge: Improved Follow Up: Weeks (1) Disposition/Orders: D/C to Home Scheduled Atorvastatin Calcium (Atorvastatin Calcium) 10 Mg Tablet, 1 TAB PO DAILY for hypertension, #30 Ref 5 (Reported) Entered as Reported by: ROBYN JARA on 06/22/21 1129 Last Action: Continued on 06/30/21 1541 by MAITE LAZO Losartan Potassium (Losartan Potassium) 100 Mg Tablet, 100 MG PO DAILY for HYPERTENSION, (Reported) Entered as Reported by: ROBYN JARA on 06/22/21 1127 Last Action: Converted on 06/30/211540 by MAITE LAZO Omeprazole (Omeprazole) 20 Mg Tablet.dr, 1 TAB PO DAILY for GERD, #90 Ref 1 (Reported) Take 30 minutes before meal Entered as Reported by: ROBYN JARA on 06/22/211126 Last Action: Converted on 06/30/211540 by MAITE LAZO Scheduled PRN Benzonatate (Benzonatate) 100 Mg Capsule, 100 MG PO PRN Q8HRS PRN for COUGH (2nd Choice) for 10 Days, #30 Prescribed by: MAKRUS BENNETT MD on 07/06/21 1405 Terazosin Hcl (Terazosin Hcl) 5 Mg Capsule, 1 CAP PO QHS PRN for URINARY PAIN, #30 Ref 5 (Reported) Entered as Reported by: ROBYN JARA on 06/22/211121 Last Action: New Order on 06/22/211121 by ROBYN JARA Tizanidine Hcl (Tizanidine Hcl) 4 Mg Tablet, 4 MG PO PRN Q8HRS PRN for MUSCLE SPASMS for 10 Days, #30 Prescribed by: MARKUS BENNETT MD on 07/06/21 1405 Discontinued Medications Hydrochlorothiazide (Hydrochlorothiazide Capsule ) 12.5 Mg Capsule, 12.5 MG PO DAILY for DIURETIC, Ref 0 (Reported) Entered as Reported by: ROBYN JARA on 06/22/211126 Last Action: Continued on 06/30/211540 by MAITE LAZO Justicifation of Admission Dx: Justifications for Admission: Justification of Admission Dx: Yes Comminuty Aquired Pneumonia: Hypoxemia MARKUS BENNETT MD Jul 06, 2021 14:15
[2021-07-06 15:00] VITALS: BP 108/66
--- NOTE | 2021-07-06 16:35 | NUR ---
Patient discharged to with home O2 on 3 LNC at rest and exertion. Escorted out to main entrance with all belongings to spouse and private vehicle. NO IV, and telemonitor discontinued.
== END 2021-07-06 16:45 | disposition home health service (06) | DRG 871 ==
LOC: ER 14:07 → 5 SOUTH 16:35 → ER 17:40 → 5 NORTH 06-15 00:52 → 1 WEST ICU 06-18 18:39 → 5 NORTH 06-24 16:26
PROVIDERS: ADMIT Family Medicine; ATTEND Family Medicine
PROC: XW033E5 Introduction of Remdesivir Anti-infective into Peripheral Vein, Percutaneous Approach, New Technology Group 5 (ICD-10-PCS; 2021-06-14)
PROC: XW033H5 Introduction of Tocilizumab into Peripheral Vein, Percutaneous Approach, New Technology Group 5 (ICD-10-PCS; 2021-06-18)
PROC: 5A0935A Assistance with Respiratory Ventilation, Less than 24 Consecutive Hours, High Flow/Velocity Cannula (ICD-10-PCS; principal; 2021-06-25)
DX: A41.89 Other specified sepsis (principal); U07.1 COVID-19; J96.01 Acute respiratory failure with hypoxia; J12.82 Pneumonia due to coronavirus disease 2019; J96.21 Acute and chronic respiratory failure with hypoxia; N17.0 Acute kidney failure with tubular necrosis; E44.1 Mild protein-calorie malnutrition; E87.1 Hypo-osmolality and hyponatremia; J44.0 Chronic obstructive pulmonary disease with (acute) lower respiratory infection; D72.810 Lymphocytopenia; E78.5 Hyperlipidemia, unspecified; E83.52 Hypercalcemia; I10 Essential (primary) hypertension; I25.10 Atherosclerotic heart disease of native coronary artery without angina pectoris; K21.9 Gastro-esophageal reflux disease without esophagitis; K80.20 Calculus of gallbladder without cholecystitis without obstruction; Z87.891 Personal history of nicotine dependence; Z68.25 Body mass index [BMI] 25.0-25.9, adult
CPT/HCPCS: 36415; 36600; 71045; 71275; 80048; 80053; 80076; 82550; 82805; 83880; 84484; 85007; 85025; 86140; 87426; 87804; 93005; 94618; 94760; 96360; J0696; J1100; J1650; J3262; J7030; J7050; Q9967; 97110-GP; 97116-GP; 97530-GO; 97530-GP; 97535-GO; 99285-25; G0378

== ENCOUNTER → 2021-08-03 | Outpatient (CLI) | payer MEDICARE ==
[2021-07-06 15:00] VITALS: BP 108/66
[~2021-08-03] MED LIST: ATOR10TA60 PO; BENZ-8 PO; HYDR12.575 PO; LOSA100T14 PO; OMEP20TA8 PO; TERA5CAP3 PO; TIZA-75 PO
--- NOTE | 2021-08-03 16:00 | CARD ---
MR#: [id number] Date of Study: 08/03/2021 Ordering Physician: SINGH COOK, Referring Physician: SINGH COOK, Tech: Diana Perdue [facility] APPROVED REPORT EXAM: Two-dimensional and M-mode echocardiogram with Doppler and color Doppler. Other Information Quality : AverageHR: 102bpm Rhythm : NSRTachycardia INDICATION Palpitations Dyspnea 2D DIMENSIONS RVDd3.5 (2.9-3.5cm)Left Atrium(2D)3.8 (1.6-4.0cm) IVSd0.7 (0.7-1.1cm)Aortic Root(2D)3.6 (2.0-3.7cm) LVDd5.1 (3.9-5.9cm)LVOT Diameter1.9 (1.8-2.4cm) PWd0.9 (0.7-1.1cm)LVDs2.8 (2.5-4.0cm) FS (%) 44.8 %SV95.9 ml Aortic Valve AoV Peak Ike.147.1cm/sAoV VTI28.0cm AO Peak GR.8.7mmHgLVOT Peak Ike.132.9cm/s AO Mean GR.4mmHgAVA (VMAX)2.47cm2 Mitral Valve MV E Xsnuyxge88.9cm/sMV DECEL [id number] MV A Apezxlfc72.0cm/sE/A Ratio1.2 Tricuspid Valve TR P. Rpbrfexv509bg/sTR Peak Gr.36mmHg LEFT VENTRICLE The left ventricle is normal size. There is normal left ventricular wall thickness. The left ventricu lar systolic function is mildly decreased. LV ejection fraction of 40 to 45%. There is mild global hy pokinesis of the left ventricle. The left ventricular diastolic function and filling is normal for ag e. RIGHT VENTRICLE The right ventricle is normal size. There is normal right ventricular wall thickness. The right ventr icular systolic function is normal. ATRIA The left atrium size is normal. The right atrium size is normal. The interatrial septum is intact wit h no evidence for an atrial septal defect or patent foramen ovale as noted on 2-D or Doppler imaging. AORTIC VALVE The aortic valve is normal in structure and function. Doppler and Color Flow revealed no significant aortic regurgitation. There is no significant aortic valvular stenosis. MITRAL VALVE The mitral valve is normal in structure and function. There is no evidence of mitral valve prolapse. There is no mitral valve stenosis. Doppler and Color-flow revealed trace mitral regurgitation. TRICUSPID VALVE The tricuspid valve is normal in structure and function. Doppler and Color Flow revealed trace tricus pid regurgitation. Estimated PAP 38 mmHg. There is no tricuspid valve stenosis. GREAT VESSELS The aortic root is normal in size. The ascending aorta is normal in size. The IVC is normal in size a nd collapses >50% with inspiration. PERICARDIAL EFFUSION There is no evidence of significant pericardial effusion. Critical Notification Critical Value: No <Conclusion> The left ventricle is normal size. The left ventricular systolic function is mildly decreased. LV ejection fraction of 40 to 45%. There is mild global hypokinesis of the left ventricle. Doppler and Color Flow revealed no significant aortic regurgitation. There is no significant aortic valvular stenosis. Doppler and Color-flow revealed trace mitral regurgitation. Doppler and Color Flow revealed trace tricuspid regurgitation. Estimated PAP 38 mmHg. Signed by : Singh Cook MD Electronically Approved : 08/03/2021 16:00:29
== END ==
LOC: ECHO 14:37
PROVIDERS: ATTEND Internal Medicine Cardiovascular Disease
DX: I51.9 Heart disease, unspecified (principal); R06.02 Shortness of breath; R06.00 Dyspnea, unspecified; R00.2 Palpitations
CPT/HCPCS: 93306

== ENCOUNTER → 2021-12-07 | Outpatient (CLI) | payer MEDICARE ==
[~2021-12-07] MED LIST changes: -OMEP20TA8 PO; +OMEP20TA91 PO
--- NOTE | 2021-12-07 16:55 | CARD ---
MR#: [id number] Date of Study: 12/07/2021 Ordering Physician: RAY GARRETT, Referring Physician: RAY GARRETT, Tech: Diana Perdue [facility] APPROVED REPORT EXAM: Two-dimensional and M-mode echocardiogram with Doppler and color Doppler. Other Information Quality : AverageHR: 67bpm Rhythm : NSR INDICATION Cardiomyopathy RISK FACTORS Hypertension 2D DIMENSIONS Left Atrium(2D)4.1 (1.6-4.0cm)IVSd1.0 (0.7-1.1cm) Aortic Root(2D)3.8 (2.0-3.7cm)LVDd5.4 (3.9-5.9cm) LVOT Diameter2.2 (1.8-2.4cm)PWd1.1 (0.7-1.1cm) IVSs0.8 (0.8-1.2cm)LVDs4.3 (2.5-4.0cm) FS (%) 20.0 %PWs1.2 (0.8-1.2cm) SV56.8 mlLVEF(%)40.5 (>50%) Tricuspid Valve TR P. [id number]/sTR Peak Gr.26mmHg LEFT VENTRICLE The left ventricle is normal size. There is normal left ventricular wall thickness. The left ventricu lar systolic function is mildly impaired. Estimated ejection fraction 45%. RIGHT VENTRICLE The right ventricle is normal size. There is normal right ventricular wall thickness. The right ventr icular systolic function is normal. ATRIA The left atrium size is normal. The right atrium size is normal. The interatrial septum is intact wit h no evidence for an atrial septal defect or patent foramen ovale as noted on 2-D or Doppler imaging. AORTIC VALVE The aortic valve is normal in structure and function. There is no significant aortic valvular stenosi s. MITRAL VALVE The mitral valve is normal in structure and function. There is no evidence of mitral valve prolapse. There is no mitral valve stenosis. TRICUSPID VALVE The tricuspid valve is normal in structure and function. Doppler and Color Flow revealed mild tricusp id regurgitation. Estimated PAP 35 mmHg. There is no tricuspid valve stenosis. GREAT VESSELS The aortic root is normal in size. The ascending aorta is normal in size. The IVC is normal in size a nd collapses >50% with inspiration. PERICARDIAL EFFUSION There is no evidence of significant pericardial effusion. Critical Notification Critical Value: No <Conclusion> The left ventricular systolic function is mildly impaired. Estimated ejection fraction 45%. Doppler and Color Flow revealed mild tricuspid regurgitation. Estimated PAP 35 mmHg. There is no evidence of significant pericardial effusion. Signed by : Adán Villarreal, Electronically Approved : 12/07/2021 16:54:49
== END ==
LOC: ECHO 14:49
PROVIDERS: ATTEND Internal Medicine Cardiovascular Disease
DX: I07.1 Rheumatic tricuspid insufficiency (principal); I42.9 Cardiomyopathy, unspecified
CPT/HCPCS: 93306; C8929